=== PATIENT | male | born 1935 | race Caucasian/White ===

== ENCOUNTER 2020-05-27 21:01 | Inpatient (IN) | payer MEDICARE, BC ==
--- NOTE | 2020-05-27 21:33 | ED ---
General Adult HPI - General Chief complaint: Fever Stated complaint: Fever, Poss UTI Time Seen by Provider: 05/27/20 21:20 Source: patient, family Mode of arrival: wheelchair Limitations: altered mental status - History of Present Illness Initial comments: Dictation was produced using [employer] dictation software. please excuse any grammatical, word or spelling errors. This patient was cared for during a federal and state declared state of emergen cy secondary to Covid 19 Chief Complaint: 84-year-old male with past medical history dementia, dyslipidemia hypertension presents with fever. History of Present Illness: 84-year-old male who has multiple comorbidities. He presents today with his son. Son is able to provide history of present illness. [facility]. Son went to go visit him and noticed that he seemed a little red in the face. He has a history of urinary tract infections. He asked [facility] staff to check his blood pressures found to be within acceptable limits. Didn't check his temperature it was 101. Patient has no complaints, however he is a poor historian. Son at bedside does not notice any localizing symptoms. He hasn't been known to cough more than usual. Patient denies any sore throat. Son reports that patient has history of chronic rhinorrhea from ALLERGIES. The ROS documented in this emergency department record has been reviewed and confirmed by me. Those systems with pertinent positive or negative responses have been documented in the HPI. All other systems are other negative and/or noncontributory. PHYSICAL EXAM: General Impression: Alert and oriented x3, not in acute distress HEENT: Normocephalic atraumatic, extra-ocular movements intact, pupils equal and reactive to light bilaterally, mucous membranes moist. Cardiovascular: Heart regular rate and rhythm Chest: Able to complete full sentences, no retractions, no tachypnea, scattered auscultation bilaterally Abdomen: abdomen soft, non-tender, non-distended, no organomegaly Musculoskeletal: Pulses present and equal in all extremities, no peripheral edema, no joint tenderness Motor: no focal deficits noted Neurological: CN II-XII grossly intact, no focal motor or sensory deficits noted, negative Brudzinski's, negative Kernig's negative Lhermitte's Skin: Intact with no visualized rashes, no perineal rash Psych: Normal affect and mood ED course: 84-year-old male presents with fever. He does not have any obvious localizing symptoms. Signs upon arrival shows temperature 100.6. Rest of vital signs within acceptable limits. Patient did receive some antipyretics prior to arrival. Laboratory evaluation obtained. No leukocytosis. Coag panel is unremarkable. Metabolic panel shows no anion gap acidosis. Normal lactic acidosis. Chest x- ray shows subsegmental atelectasis at the bilateral lung bases. Urinalysis is unremarkable. Patient reevaluated bedside finally stable medical condition. He is however very weak. This point it is unclear what is causing patient's pyrexia. Son at bedside reports that he did appear very weak and symptomatic right to receiving, today. Disposition options were discussed with patient and patient's son. They're agreeable for overnight observation for systemic inflammatory response syndrome. Pending coronavirus testing. Discussed patient case with Dr. Iglesias who is willing to accept patients care EKG interpretation: Ventricular rate 60, sinus rhythm,. Interval 154, Q 76, QTC 410. No MN prolongation, no QTC prolongation, no ST or T-wave changes noted. EKG compared to 05/01/2015 showing no changes. Overall, this EKG is unremarkable - Related Data Home Medications Medication Instructions Recorded Confirmed Gabapentin [Neurontin] 400 mg PO HS 03/24/14 05/27/20 Tamsulosin HCl [Flomax] 0.4 mg PO DAILY 03/24/14 05/27/20 amLODIPine [Norvasc] 5 mg PO DAILY 03/24/14 05/27/20 Atorvastatin [Lipitor] 40 mg PO DAILY 05/01/15 05/27/20 Cholecalciferol [Vitamin D3 (25 1,000 unit PO DAILY 02/24/16 05/27/20 Mcg = 1000 Iu)] EPINEPHrine [Epipen 2-Julien] 0.3 mg IM ONCE PRN 02/24/16 05/27/20 Aspirin [Adult Low Dose Aspirin EC] 81 mg PO HS 05/27/20 05/27/20 Calcium Polycarbophil [Fiber-Lax] 625 mg PO DAILY 05/27/20 05/27/20 Donepezil [Aricept] 10 mg PO HS 05/27/20 05/27/20 Finasteride [Proscar] 5 mg PO DAILY 05/27/20 05/27/20 Loratadine 10 mg PO DAILY 05/27/20 05/27/20 Memantine [Namenda] 10 mg PO BID 05/27/20 05/27/20 Sertraline HCl [Zoloft] 100 mg PO DAILY 05/27/20 05/27/20 lisinopriL [Zestril] 2.5 mg PO DAILY 05/27/20 05/27/20 Allergies Allergy/AdvReac Type Severity Reaction Status Date / Time Sulfa (Sulfonamide Allergy Rash/Hives Verified 05/27/20 22:53 Antibiotics) venom-honey bee Allergy "PASSED Verified 05/27/20 22:53 [bee venom (honey bee)] OUT" diphenhydramine HCl AdvReac Hallucinati Verified 05/27/20 22:53 [From Benadryl] ons Review of Systems ROS Statement: Those systems with pertinent positive or pertinent negative responses have been documented in the HPI. ROS Other: All systems not noted in ROS Statement are negative. Past Medical History Past Medical History: Dementia, GERD/Reflux, Hearing Disorder / Deafness, Hyperlipidemia, Hypertension, Prostate Disorder Additional Past Medical History / Comment(s): severe constipation, hx colon polyps, neuropathy, degenerative disc disease of the lumbar spine, gastroesophageal reflux disease/hiatal hernia, hyperlipidemia, osteoarthritis, memory loss, vitamin D deficiency. History of Any Multi-Drug Resistant Organisms: None Reported Past Surgical History: Adenoidectomy, Hernia Repair, Tonsillectomy Additional Past Surgical History / Comment(s): undescended testicle surg years ago, bilateral cataract surgery, tonsillectomy and adenoidectomy, Lion fundoplication for hiatal hernia, epidural injection for degenerative disc disease of the lumbar spine, colonoscopy a year ago, cystoscopy . Past Anesthesia/Blood Transfusion Reactions: No Reported Reaction Past Psychological History: No Psychological Hx Reported Smoking Status: Former smoker Past Alcohol Use History: Occasional Past Drug Use History: None Reported - Past Family History Mother History Unknown: Yes Family Medical History: No Reported History Father Family Medical History: Coronary Artery Disease (CAD) Daughter(s) Family Medical History: No Reported History (Patient has 2 daughters no major medical problems.) Son(s) Family Medical History: No Reported History (Patient has 2 sons no major medical problems.) General Exam Limitations: altered mental status Course Vital Signs 05/27/20 05/27/20 05/27/20 21:09 21:22 21:30 Temperature 100.6 F H Pulse Rate 67 59 L 61 Respiratory 17 Rate Blood Pressure 111/62 117/57 O2 Sat by Pulse 94 L 95 Oximetry 05/27/20 05/27/20 22:00 22:30 Temperature Pulse Rate 60 64 Respiratory 18 20 Rate Blood Pressure 119/60 121/62 O2 Sat by Pulse 96 96 Oximetry Medical Decision Making - Lab Data Result diagrams: 05/27/20 21:35 05/27/20 21:35 Lab Results 05/27/20 05/27/20 05/27/20 Range/Units 21:35 21:35 21:35 WBC 9.2 (3.8-10.6) k/uL RBC 4.81 (4.30-5.90) m/uL Hgb 15.0 (13.0-17.5) gm/dL Hct 44.2 (39.0-53.0) % MCV 91.8 (80.0-100.0) fL MCH 31.1 (25.0-35.0) pg MCHC 33.9 (31.0-37.0) g/dL RDW 12.7 (11.5-15.5) % Plt Count 229 (150-450) k/uL Neutrophils % 84 % Lymphocytes % 9 % Monocytes % 5 % Eosinophils % 0 % Basophils % 0 % Neutrophils # 7.7 (1.3-7.7) k/uL Lymphocytes # 0.8 L (1.0-4.8) k/uL Monocytes # 0.5 (0-1.0) k/uL Eosinophils # 0.0 (0-0.7) k/uL Basophils # 0.0 (0-0.2) k/uL PT 10.1 (9.0-12.0) sec INR 1.0 (<1.2) APTT 25.1 (22.0-30.0) sec Sodium (137-145) mmol/L Potassium (3.5-5.1) mmol/L Chloride (98-107) mmol/L Carbon Dioxide (22-30) mmol/L Anion Gap mmol/L BUN (9-20) mg/dL Creatinine (0.66-1.25) mg/dL Est GFR (CKD-EPI)AfAm (>60 ml/min/1.73 sqM) Est GFR (CKD-EPI)NonAf (>60 ml/min/1.73 sqM) Glucose (74-99) mg/dL Plasma Lactic Acid Henrik (0.7-2.0) mmol/L Calcium (8.4-10.2) mg/dL Total Bilirubin (0.2-1.3) mg/dL AST (17-59) U/L ALT (4-49) U/L Alkaline Phosphatase (38-126) U/L Total Protein (6.3-8.2) g/dL Albumin (3.5-5.0) g/dL Urine Color Yellow Urine Appearance Clear (Clear) Urine pH 6.5 (5.0-8.0) Ur Specific [place] 1.014 (1.001-1.035) Urine Protein Negative (Negative) Urine Glucose (UA) Negative (Negative) Urine Ketones Negative (Negative) Urine Blood Negative (Negative) Urine Nitrite Negative (Negative) Urine Bilirubin Negative (Negative) Urine Urobilinogen <2.0 (<2.0) mg/dL Ur Leukocyte Esterase Negative (Negative) 05/27/20 05/27/20 Range/Units 21:35 21:35 WBC (3.8-10.6) k/uL RBC (4.30-5.90) m/uL Hgb (13.0-17.5) gm/dL Hct (39.0-53.0) % MCV (80.0-100.0) fL MCH (25.0-35.0) pg MCHC (31.0-37.0) g/dL RDW (11.5-15.5) % Plt Count (150-450) k/uL Neutrophils % % Lymphocytes % % Monocytes % % Eosinophils % % Basophils % % Neutrophils # (1.3-7.7) k/uL Lymphocytes # (1.0-4.8) k/uL Monocytes # (0-1.0) k/uL Eosinophils # (0-0.7) k/uL Basophils # (0-0.2) k/uL PT (9.0-12.0) sec INR (<1.2) APTT (22.0-30.0) sec Sodium 134 L (137-145) mmol/L Potassium 4.0 (3.5-5.1) mmol/L Chloride 106 (98-107) mmol/L Carbon Dioxide 21 L (22-30) mmol/L Anion Gap 7 mmol/L BUN 21 H (9-20) mg/dL Creatinine 1.12 (0.66-1.25) mg/dL Est GFR (CKD-EPI)AfAm 69 (>60 ml/min/1.73 sqM) Est GFR (CKD-EPI)NonAf 60 (>60 ml/min/1.73 sqM) Glucose 115 H (74-99) mg/dL Plasma Lactic Acid Henrik 1.2 (0.7-2.0) mmol/L Calcium 8.7 (8.4-10.2) mg/dL Total Bilirubin 0.7 (0.2-1.3) mg/dL AST 23 (17-59) U/L ALT 19 (4-49) U/L Alkaline Phosphatase 91 (38-126) U/L Total Protein 6.8 (6.3-8.2) g/dL Albumin 4.0 (3.5-5.0) g/dL Urine Color Urine Appearance (Clear) Urine pH (5.0-8.0) Ur Specific [place] (1.001-1.035) Urine Protein (Negative) Urine Glucose (UA) (Negative) Urine Ketones (Negative) Urine Blood (Negative) Urine Nitrite (Negative) Urine Bilirubin (Negative) Urine Urobilinogen (<2.0) mg/dL Ur Leukocyte Esterase (Negative) Disposition Clinical Impression: SIRS (systemic inflammatory response syndrome) Disposition: ADMITTED IP TO THIS [facility] Condition: Fair Referrals: None,Stated [Primary Care Provider] - 1-2 days Decision Time: 23:09
[2020-05-27 21:45] LABS: Basophils % (A) 0 %; Eosinophils % (A) 0 %; HCT 44.2 % (39.0-53.0); Lymphocytes # (A) 0.8 k/uL (1.0-4.8); Lymphocytes % (A) 9 %; MCH 31.1 pg (25.0-35.0); MCHC 33.9 g/dL (31.0-37.0); MCV 91.8 fL (80.0-100.0); Mean Platelet Volume 7.4; Monocytes # (A) 0.5 k/uL (0-1.0); Monocytes % (A) 5 %; Neutrophils # (A) 7.7 k/uL (1.3-7.7); Neutrophils % (A) 84 %; Platelet Count 229 k/uL (150-450); RBC 4.81 m/uL (4.30-5.90); RDW 12.7 % (11.5-15.5); WBC 9.2 k/uL (3.8-10.6)
[2020-05-27 21:55] LABS: Calcium 8.7 mg/dL (8.4-10.2); Total Bilirubin 0.7 mg/dL (0.2-1.3); Total Protein 6.8 g/dL (6.3-8.2)
[2020-05-27 21:56] LABS: Partial Thromboplastin Time 25.1 sec (22.0-30.0); Prothrombin Time 10.1 sec (9.0-12.0)
--- NOTE | 2020-05-27 21:58 | XR ---
EXAMINATION TYPE: XR chest 2V DATE OF EXAM: 05/27/2020 COMPARISON: 03/08/2016 INDICATION: Fever altered mental status TECHNIQUE: Frontal and lateral views of the chest are obtained. FINDINGS: The heart size is normal. The pulmonary vasculature is normal. Some subtle subsegmental atelectasis at the lung bases may be present.. IMPRESSION: 1. Subtle suggestion of subsegmental atelectasis at the bilateral lung bases.
[2020-05-27 22:53] LABS: Appearance,Urine Clear (Clear); Bilirubin,Urine Negative (Negative); Blood,Urine Negative (Negative); Color,Urine Yellow; Glucose,Urine (UA) Negative (Negative); Ketones,Urine Negative (Negative); Leukocyte Esterase,Urine Negative (Negative); Nitrite,Urine Negative (Negative); PH, Urine 6.5 (5.0-8.0); Protein,Urine Negative (Negative); Specific Gravity,Urine 1.014 (1.001-1.035); Urobilinogen,Urine <2.0 mg/dL (<2.0)
[2020-05-27] MEDS ORDERED: ACETAMINOPHEN TAB 325 MG TAB PO PRN (23:05)
[2020-05-27] MEDS ORDERED: ONDANSETRON 4 MG/2 ML VIAL IVP PRN (23:05)
[2020-05-27] MEDS ORDERED: NALOXONE 0.4 MG/ML 1 ML VIAL IV PRN (23:05)
--- NOTE | 2020-05-28 00:23 | P.HPIM ---
History of Present Illness H&P Date: 05/27/20 The patient is an 84-year-old male with a PMH of dementia, hypertension, hyperlipidemia, hearing loss, and BPH who presented to the ED for fever. The history was provided by his son at the bedside. He reported that when he went to visit his dad at his residential facility, he noticed that he appeared to be somewhat lethargic. When the staff checked his vitals, they noted that he had a fever of 101.3. The patient was subsequently sent into the emergency room. The patient was a very poor historian due to his dementia though was answering questions but denied any active complaints. He denied chest pain, shortness of breath, nausea, vomiting, diarrhea, dysuria, or headache. As per his son at the bedside, the patient has a history of chronic sinusitis and multiple UTIs in the past. In the emergency room, the patient's T-max was 100.6. Chest x-ray revealed subsegmental bibasilar atelectasis. EKG revealed sinus rhythm with PVCs at 60 bpm. UA was unremarkable with lactate 1.2, WBC count 9.2, hemoglobin 15, sodium 134, potassium 4.0, chloride 106, CO2 21, BUN 21, creatinine 1.12. Review of Systems Pertinent positives and negatives as discussed in HPI, a complete review of systems was performed and all other systems are negative. Past Medical History Past Medical History: Dementia, GERD/Reflux, Hearing Disorder / Deafness, Hyperlipidemia, Hypertension, Prostate Disorder Additional Past Medical History / Comment(s): severe constipation, hx colon polyps, neuropathy, degenerative disc disease of the lumbar spine, gastroesophageal reflux disease/hiatal hernia, hyperlipidemia, osteoarthritis, memory loss, vitamin D deficiency. History of Any Multi-Drug Resistant Organisms: None Reported Past Surgical History: Adenoidectomy, Hernia Repair, Tonsillectomy Additional Past Surgical History / Comment(s): undescended testicle surg years ago, bilateral cataract surgery, tonsillectomy and adenoidectomy, Lion f undoplication for hiatal hernia, epidural injection for degenerative disc disease of the lumbar spine, colonoscopy a year ago, cystoscopy . Past Anesthesia/Blood Transfusion Reactions: No Reported Reaction Past Psychological History: No Psychological Hx Reported Smoking Status: Former smoker Past Alcohol Use History: Occasional Past Drug Use History: None Reported - Past Family History Mother History Unknown: Yes Family Medical History: No Reported History Father Family Medical History: Coronary Artery Disease (CAD) Daughter(s) Family Medical History: No Reported History (Patient has 2 daughters no major medical problems.) Son(s) Family Medical History: No Reported History (Patient has 2 sons no major medical problems.) Medications and Allergies Home Medications Medication Instructions Recorded Confirmed Type Gabapentin [Neurontin] 400 mg PO HS 03/24/14 05/27/20 History Tamsulosin HCl [Flomax] 0.4 mg PO DAILY 03/24/14 05/27/20 History amLODIPine [Norvasc] 5 mg PO DAILY 03/24/14 05/27/20 History Atorvastatin [Lipitor] 40 mg PO DAILY 05/01/15 05/27/20 History Cholecalciferol [Vitamin D3 (25 1,000 unit PO DAILY 02/24/16 05/27/20 History Mcg = 1000 Iu)] EPINEPHrine [Epipen 2-Julien] 0.3 mg IM ONCE PRN 02/24/16 05/27/20 History Aspirin [Adult Low Dose Aspirin EC] 81 mg PO HS 05/27/20 05/27/20 History Calcium Polycarbophil [Fiber-Lax] 625 mg PO DAILY 05/27/20 05/27/20 History Donepezil [Aricept] 10 mg PO HS 05/27/20 05/27/20 History Finasteride [Proscar] 5 mg PO DAILY 05/27/20 05/27/20 History Loratadine 10 mg PO DAILY 05/27/20 05/27/20 History Memantine [Namenda] 10 mg PO BID 05/27/20 05/27/20 History Sertraline HCl [Zoloft] 100 mg PO DAILY 05/27/20 05/27/20 History lisinopriL [Zestril] 2.5 mg PO DAILY 05/27/20 05/27/20 History Allergies Allergy/AdvReac Type Severity Reaction Status Date / Time Sulfa (Sulfonamide Allergy Rash/Hives Verified 05/27/20 22:53 Antibiotics) venom-honey bee Allergy "PASSED Verified 05/27/20 22:53 [bee venom (honey bee)] OUT" diphenhydramine HCl AdvReac Hallucinati Verified 05/27/20 22:53 [From Benadryl] ons Physical Exam Vitals: Vital Signs Temp Pulse Resp BP Pulse Ox 05/27/20 23:00 64 20 161/89 98 05/27/20 22:30 64 20 121/62 96 05/27/20 22:00 60 18 119/60 96 05/27/20 21:30 61 117/57 95 05/27/20 21:22 59 L 05/27/20 21:09 100.6 F H 67 17 111/62 94 L Intake and Output 05/27/20 05/27/20 05/28/20 14:59 22:59 06:59 Other: Weight 79.379 kg General: non toxic, no distress, appears at stated age, overweight Derm: no unusual rashes/lesions no unusual ecchymoses, warm, dry Head: atraumatic, normocephalic, symmetric Eyes: EOMI, no lid lag, anicteric sclera, pupils equal round reactive to light ENT: Nose and ears atraumatic, no thrush, no pharyngeal erythema Neck: No thyromegaly, no cervical lymphadenopathy, trachea midline, supple Mouth: no lip lesion, mucus membranes moist Cardiovascular: S1S2 reg, systolic murmur appreciated, positive posterior tibial pulse bilateral, no edema, capillary refill less than 2 seconds Lungs: CTA bilateral, no rhonchi, no rales , no accessory muscle use Abdominal: soft, nontender to palpation, no guarding, no appreciable organomegaly, normal bowel sounds Ext: no gross muscle atrophy, muscle strength 5 out of 5 in all 4 extremities grossly, no contractures, Neuro: CN II-XI grossly intact, light touch intact all 4 extremities, finger to nose within normal limits, Psych: Awake, oriented to self, not oriented to place or time Results CBC & Chem 7: 05/27/20 21:35 05/27/20 21:35 Labs: Abnormal Lab Results - Last 24 Hours (Table) 05/27/20 05/27/20 Range/Units 21:35 21:35 Lymphocytes # 0.8 L (1.0-4.8) k/uL Sodium 134 L (137-145) mmol/L Carbon Dioxide 21 L (22-30) mmol/L BUN 21 H (9-20) mg/dL Glucose 115 H (74-99) mg/dL Assessment and Plan Plan: SIRS, no clear etiology noted -Follow-up Covid testing -F/u blood cultures Elevated BUN, possibly secondary to dehydration -Monitor BMP for now Chronic conditions: Dementia, hypertension, hyperlipidemia, BPH -Continue with home meds DVT prophylaxis -Heparin subq Discussed with: Son, Patient Anticipated discharge date: 1-[address]: SNF A total of 35 minutes was spent on the care of this complex patient more than 50% of the time was spent in counseling and care coordination.
[2020-05-28] MEDS: HEPARIN SODIUM,PORCINE 5,000 UNIT/ML 1 ML VIAL SQ SCH ×3 (08:01→23:17)
[2020-05-28] MEDS: SERTRALINE 100 MG TAB PO SCH (08:11)
[2020-05-28] MEDS: ATORVASTATIN 40 MG TAB PO SCH (08:11)
[2020-05-28] MEDS: FINASTERIDE 5 MG TAB PO SCH (08:11)
[2020-05-28] MEDS: MEMANTINE 10 MG TAB PO SCH ×2 (08:11→20:40)
[2020-05-28] MEDS: TAMSULOSIN 0.4 MG CAP.ER.24H PO SCH (08:12)
--- NOTE | 2020-05-28 09:48 | P.PN ---
Subjective Progress Note Date: 05/28/20 Patient is awake and alert. He is very hard of hearing. He does not have any complaints. Nurse informed me that he had another low-grade fever of 100.5 this morning. He is not having any cough or shortness of breath. Objective - Vital Signs Vital signs: Vital Signs Temp 98.3 F 05/28/20 00:25 Pulse 65 05/28/20 00:25 Resp 16 05/28/20 00:25 BP 160/72 05/28/20 00:25 Pulse Ox 98 05/28/20 00:25 Intake & Output 05/27/20 05/28/20 05/28/20 18:59 06:59 18:59 Intake Total 500 Balance 500 Weight 79.379 kg Intake: Oral 500 Other: Voiding Method Toilet # Voids 1 # Bowel Movements 1 - Exam General: The patient is awake and alert, in no distress Eye: there is normal conjunctiva bilaterally. Neck: The neck is supple, there is no JVD. Cardiovascular: Normal S1-S2, no S3-S4, no murmurs. Respiratory: Lungs clear to auscultation bilaterally Gastrointestinal: Abdomen is soft, nontender Musculoskeletal: There is no pedal edema. Neurological:. Speech is normal. Skin: Skin is warm and dry - Labs CBC & Chem 7: 05/27/20 21:35 05/27/20 21:35 Labs: Abnormal Lab Results - Last 24 Hours (Table) 05/27/20 05/27/20 Range/Units 21:35 21:35 Lymphocytes # 0.8 L (1.0-4.8) k/uL Sodium 134 L (137-145) mmol/L Carbon Dioxide 21 L (22-30) mmol/L BUN 21 H (9-20) mg/dL Glucose 115 H (74-99) mg/dL Assessment and Plan Assessment: This is a 84-year-old male with complex past medical history noted below who presented to the emergency room with a low-grade fever. Patient was evaluated at the ER and currently admitted to the hospital for further management of his medical problems noted below. 1. Low-grade fever, with no evidence of infection. Urinalysis and chest x-ray clear. No symptoms of URI. COVID-19 and blood culture ordered in the ER pending. We will continue to monitor closely off of antibiotic. Tylenol as needed. 2. Chronic constipation: I would add MiraLAX at bedtime to his regimen. 3. Chronic medical condition, advanced dementia, hypertension, hyperlipidemia, BPH: Stable continue home medications 4. DVT prophylaxis with subcu heparin We will continue to monitor awaiting culture results as patient is still having low-grade fever. If remains stable anticipate discharge tomorrow.
[2020-05-28] MEDS: SENNOSIDES 8.6 MG TAB PO SCH (14:23)
[2020-05-28] MEDS: DONEPEZIL 10 MG TAB PO SCH (20:40)
[2020-05-28] MEDS: GABAPENTIN 400 MG CAP PO SCH (20:41)
[2020-05-28] MEDS: ASPIRIN 81 MG PO SCH (20:41)
[2020-05-28] MEDS: polyethylene glycoL 3350 17 GM POWD.PACK PO SCH (20:41)
[2020-05-28] MEDS ORDERED: lisinopriL 5 MG TAB PO STA (21:20)
[2020-05-28] MEDS ORDERED: amLODIPine 5 MG TAB PO STA ×2 (21:31→21:38)
[2020-05-29] MEDS: HEPARIN SODIUM,PORCINE 5,000 UNIT/ML 1 ML VIAL SQ SCH ×3 (07:30→23:03)
[2020-05-29] MEDS ORDERED: SODIUM CHLORIDE 0.9% 1,000 ML IV SCH (08:00)
[2020-05-29] MEDS: SENNOSIDES 8.6 MG TAB PO SCH (08:17)
[2020-05-29] MEDS: FINASTERIDE 5 MG TAB PO SCH (08:18)
[2020-05-29] MEDS: MEMANTINE 10 MG TAB PO SCH ×2 (08:18→22:04)
[2020-05-29] MEDS: ATORVASTATIN 40 MG TAB PO SCH (08:18)
[2020-05-29] MEDS: SERTRALINE 100 MG TAB PO SCH (08:19)
[2020-05-29] MEDS: TAMSULOSIN 0.4 MG CAP.ER.24H PO SCH (08:19)
[2020-05-29 08:48] LABS: Calcium 8.4 mg/dL (8.4-10.2); Potassium 3.8 mmol/L (3.5-5.1)
[2020-05-29 08:52] LABS: Basophils % (A) 0 %; Eosinophils # (A) 0.1 k/uL (0-0.7); Eosinophils % (A) 2 %; HCT 45.1 % (39.0-53.0); HGB 14.8 gm/dL (13.0-17.5); Lymphocytes # (A) 1.2 k/uL (1.0-4.8); Lymphocytes % (A) 17 %; MCH 30.7 pg (25.0-35.0); MCHC 32.8 g/dL (31.0-37.0); MCV 93.5 fL (80.0-100.0); Mean Platelet Volume 7.7; Monocytes # (A) 0.5 k/uL (0-1.0); Monocytes % (A) 7 %; Neutrophils # (A) 5.3 k/uL (1.3-7.7); Neutrophils % (A) 71 %; Platelet Count 190 k/uL (150-450); RBC 4.83 m/uL (4.30-5.90); RDW 12.8 % (11.5-15.5); WBC 7.4 k/uL (3.8-10.6)
--- NOTE | 2020-05-29 11:49 | CT ---
EXAMINATION TYPE: CT abdomen pelvis w con DATE OF EXAM: 05/29/2020 COMPARISON: None INDICATION: Gram negative bacteremia, inta abdominal infection DLP: 1069 mGycm, Automated exposure control for dose reduction was used. CONTRAST: 100 ml mL of Isovue 300. Study performed without Oral Contrast TECHNIQUE: Axial images were obtained from above the diaphragm to the pubic rami in the axial plane a t 5 mm thick sections. Reconstructed images are reviewed on the computer in the coronal plane. FINDINGS: Limited CT sections are obtained the lung bases. Some mild atelectasis may be at the right lung base .. CT ABDOMEN: Surgical changes in the epigastric region likely is a hiatal hernia repair device Liver: Small cyst is within the superior right lobe liver. There is a cyst within the medial anterior right lobe liver. Spleen: Normal Pancreas: Normal Adrenal glands: The adrenal glands are normal. Gallbladder: Normal Kidneys: No masses are evident. No hydronephrosis is present. There is a 5.2 cm cyst at superior po le right kidney measuring 14 Hounsfield units. Delayed images were obtained through the kidneys, whi ch remain unremarkable. Aorta: Vascular calcification is within the aorta. Inferior vena cava: Normal. CT PELVIS: Possible diverticuli are within the colon especially through the sigmoid colon. No suspicious inflamm atory changes suggest acute diverticulitis is evident. Studies without oral contrast limiting bowel e valuation. Appendix: Not identified. No suspicious dilated tubular structure inflammatory changes evident. Urinary bladder: There is urinary bladder diverticulum extending from both left and right vitale urina ry bladder. A right posterior lateral diverticulum is also present. Urinary bladder is distended. Genitourinary structures: No significant prostate hypertrophy is evident. Osseous structures: No suspicious lytic or sclerotic lesions. Degenerative disc changes are through t he thoracolumbar spine. Bone island may be present within the left medial iliac wing. IMPRESSIONS: 1. Diverticulosis without acute diverticulitis. 2. Urinary bladder diverticulum. 3. Superior pole right renal cyst.
--- NOTE | 2020-05-29 13:41 | P.PN ---
Subjective Progress Note Date: 05/29/20 Patient is doing well today. No more documented fevers over the last night. No acute events overnight. He was noted to be bacteremic with gram-negative vasculitis morning. Objective - Vital Signs Vital signs: Vital Signs Temp 97.0 F L 05/29/20 08:49 Pulse 60 05/29/20 08:49 Resp 18 05/29/20 08:49 BP 121/59 05/29/20 08:49 Pulse Ox 94 L 05/29/20 02:21 Intake & Output 05/28/20 05/29/20 05/29/20 18:59 06:59 18:59 Intake Total 500 240 Balance 500 240 Intake: Oral 500 240 Other: Voiding Method Toilet # Voids 1 1 # Bowel Movements 1 - Exam General: The patient is awake and alert, in no distress Eye: there is normal conjunctiva bilaterally. Neck: The neck is supple, there is no JVD. Cardiovascular: Normal S1-S2, no S3-S4, no murmurs. Respiratory: Lungs clear to auscultation bilaterally Gastrointestinal: Abdomen is soft, nontender Musculoskeletal: There is no pedal edema. Neurological:. Speech is normal. Skin: Skin is warm and dry - Labs CBC & Chem 7: 05/29/20 08:09 05/29/20 08:09 Labs: Abnormal Lab Results - Last 24 Hours (Table) 05/29/20 Range/Units 08:09 Sodium 136 L (137-145) mmol/L Glucose 187 H (74-99) mg/dL Microbiology - Last 24 Hours (Table) 05/27/20 21:35 Blood Culture Gram Stain - Preliminary Blood Blood Culture - Preliminary Pseudomonas aeruginosa 05/27/20 21:35 Blood Culture - Final Blood Assessment and Plan Assessment: This is a 84-year-old male with complex past medical history noted below who presented to the emergency room with a low-grade fever. Patient was evaluated at the ER and currently admitted to the hospital for further management of his medical problems noted below. Patient was monitored off of antibiotic on admission but continued to have low-grade fever and the next day he was noted to be bacteremic with gram-negative bacillary where he was started on IV ceftr iaxone and then culture finalized to pseudomonas aeruginosa and antibiotics switched to IV cefepime. 1. Pseudomonas aeruginosa bacteremia. Source of infection unclear. Repeat blood culture ordered and pending. Urinalysis negative and chest x-ray with some atelectasis but no evidence of pneumonia. Computed tomography scan of the abdomen and pelvis with no source of infection. 2. Chronic constipation: I added MiraLAX at bedtime to his regimen. 3. Chronic medical condition, advanced dementia, hypertension, hyperlipidemia, BPH: Stable continue home medications 4. DVT prophylaxis with subcu heparin Infectious disease consulted for further evaluation. Admit to inpatient with expected length of stay more than tonight Discontinue IV fluid hydration
[2020-05-29] MEDS ORDERED: CEFEPIME 1 GM in SODIUM CHLORIDE 0.9% 50 ML IVPB ONE (14:00)
[2020-05-29] MEDS ORDERED: CEFEPIME 2 GM in SODIUM CHLORIDE 0.9% 50 ML IVPB SCH (21:00)
[2020-05-29] MEDS: ASPIRIN 81 MG PO SCH (22:04)
[2020-05-29] MEDS: GABAPENTIN 400 MG CAP PO SCH (22:04)
[2020-05-29] MEDS: DONEPEZIL 10 MG TAB PO SCH (22:04)
[2020-05-29] MEDS: polyethylene glycoL 3350 17 GM POWD.PACK PO SCH (22:05)
--- NOTE | 2020-05-29 23:02 | P.CONS ---
History of Present Illness - Reason for Consult Consult date: 05/29/20 Pseudomonas bacteremia Requesting physician: Jessica Asencio - Chief Complaint Fever x one day - History of Present Illness Patient is 84-year-old male who [facility], on the day of admission to the hospital the patient's son went to visit his father, patient wasn't she'll be slightly flushed in the face and he was noticed to have a temperature of 101F, patient subsequently was brought into the ER for further evaluation on arrival to the this facility, patient Temperature 100.6 degrees Fahrenheit patient did have a normal white count, patient did have a normal UA and chest x-ray did show some atelectasis patient did have blood culture drawn which were reported this morning with Pseudomonas aeruginosa, patient did have a CT of abdominal pelvis ordered with IV contrast only no oral contrast did show some diverticulosis but no diverticulitis and bladder diverticulum infectious disease was consulted for further management of antibiotic therapy, since admission Hospital the patient is afebrile patient is complaining of some vague lower abdominal pain however denies any worsening of the feeling better patient denies any nausea no vomiting no diarrhea or any constipation no burning or frequency of urine denies having any chest pain or shortness of cough and currently do not have any nuchal wound or lower extremity swelling or redness Review of Systems Positive point has been mentioned in the HPI rest of the systems are negative Past Medical History Past Medical History: Dementia, GERD/Reflux, Hearing Disorder / Deafness, Hyperlipidemia, Hypertension, Prostate Disorder Additional Past Medical History / Comment(s): severe constipation, hx colon polyps, neuropathy, degenerative disc disease of the lumbar spine, gastroeso phageal reflux disease/hiatal hernia, hyperlipidemia, osteoarthritis, memory loss, vitamin D deficiency. History of Any Multi-Drug Resistant Organisms: None Reported Past Surgical History: Adenoidectomy, Hernia Repair, Tonsillectomy Additional Past Surgical History / Comment(s): undescended testicle surg years ago, bilateral cataract surgery, tonsillectomy and adenoidectomy, Lion fundoplication for hiatal hernia, epidural injection for degenerative disc disease of the lumbar spine, colonoscopy a year ago, cystoscopy . Past Anesthesia/Blood Transfusion Reactions: No Reported Reaction Past Psychological History: No Psychological Hx Reported Smoking Status: Former smoker Past Alcohol Use History: Occasional Past Drug Use History: None Reported - Past Family History Mother History Unknown: Yes Family Medical History: No Reported History Father Family Medical History: Coronary Artery Disease (CAD) Daughter(s) Family Medical History: No Reported History (Patient has 2 daughters no major medical problems.) Son(s) Family Medical History: No Reported History (Patient has 2 sons no major medical problems.) Medications and Allergies Home Medications Medication Instructions Recorded Confirmed Type Gabapentin [Neurontin] 400 mg PO HS 03/24/14 05/27/20 History Tamsulosin HCl [Flomax] 0.4 mg PO DAILY 03/24/14 05/27/20 History amLODIPine [Norvasc] 5 mg PO DAILY 03/24/14 05/27/20 History Atorvastatin [Lipitor] 40 mg PO DAILY 05/01/15 05/27/20 History Cholecalciferol [Vitamin D3 (25 1,000 unit PO DAILY 02/24/16 05/27/20 History Mcg = 1000 Iu)] EPINEPHrine [Epipen 2-Julien] 0.3 mg IM ONCE PRN 02/24/16 05/27/20 History Aspirin [Adult Low Dose Aspirin EC] 81 mg PO HS 05/27/20 05/27/20 History Calcium Polycarbophil [Fiber-Lax] 625 mg PO DAILY 05/27/20 05/27/20 History Donepezil [Aricept] 10 mg PO HS 05/27/20 05/27/20 History Finasteride [Proscar] 5 mg PO DAILY 05/27/20 05/27/20 History Loratadine 10 mg PO DAILY 05/27/20 05/27/20 History Memantine [Namenda] 10 mg PO BID 05/27/20 05/27/20 History Sertraline HCl [Zoloft] 100 mg PO DAILY 05/27/20 05/27/20 History lisinopriL [Zestril] 2.5 mg PO DAILY 05/27/20 05/27/20 History Allergies Allergy/AdvReac Type Severity Reaction Status Date / Time Sulfa (Sulfonamide Allergy Rash/Hives Verified 05/27/20 22:53 Antibiotics) venom-honey bee Allergy "PASSED Verified 05/27/20 22:53 [bee venom (honey bee)] OUT" diphenhydramine HCl AdvReac Hallucinati Verified 08/28/20 22:53 [From Benadryl] ons Physical Exam Vitals: Vital Signs Temp Pulse Resp BP Pulse Ox 05/29/20 08:49 97.0 F L 60 18 121/59 05/29/20 02:21 98.3 F 71 17 129/67 94 L 05/29/20 02:10 71 17 05/28/20 23:15 99.1 F 62 16 107/57 92 L 05/28/20 19:35 99.0 F 67 15 170/64 94 L 05/28/20 19:15 18 Intake and Output 05/29/20 05/29/20 05/29/20 06:59 14:59 22:59 Other: Voiding Method Toilet # Voids 1 1 # Bowel Movements 1 GENERAL DESCRIPTION: Elderly male up in the chair, no distress. No tachypnea or accessory muscle of respiration use. HEENT: Shows Pallor , no scleral icterus. Oral mucous membrane is dry. No pharyngeal erythema or thrush NECK: Trachea central, no thyromegaly. LUNGS: Unlabored breathing. Decreased breath sounds at the base. No wheeze or crackle. HEART: S1, S2, regular rate and rhythm. No loud murmur ABDOMEN: Soft, no tenderness , guarding or rigidity, no organomegaly EXTREMITIES: No edema of feet. SKIN: No rash, no masses palpable. NEUROLOGICAL: The patient is awake, alert, oriented x3, mood and affect normal. Results CBC & Chem 7: 05/29/20 08:09 05/29/20 08:09 Labs: Abnormal Lab Results - Last 24 Hours (Table) 05/29/20 Range/Units 08:09 Sodium 136 L (137-145) mmol/L Glucose 187 H (74-99) mg/dL Microbiology - Last 24 Hours (Table) 05/27/20 21:35 Blood Culture Gram Stain - Preliminary Blood Blood Culture - Preliminary Pseudomonas aeruginosa 05/27/20 21:35 Blood Culture - Final Blood Assessment and Plan Assessment: 1- patient with Pseudomonas bacteremia in this patient presented to the hospital with fever and weakness but no definite localizing symptoms as for his infection is concerned in this patient workup so far including a UA that was negative chest x-rays have atelectasis and CT abdominal pelvis did not show any definite focus however the patient has been complaining of some abdominal pain and discomfort but no tenderness was noticed with concern for possible abdominal source 2-sulfa ALLERGY (1) Bacteremia due to Pseudomonas Current Visit: Yes Status: Acute Code(s): R78.81 - BACTEREMIA; B96.5 - PSEUDOMONAS (MALLEI) CAUSING DISEASES [facility] SNOM[facility] Code(s): 5010 [id number] Plan: 1-blood culture repeated to document clearance of bacteremia 2- just doesn't cefepime. 2 g every 12hr, while waiting for sensitivity to finalize Daughter at the bedside questions concerned were answered We will follow on clinical condition and cultures to further adjust medication if needed Thank you for this consultation will follow this patient with you Time with Patient: Greater than 30
[2020-05-30] MEDS ORDERED: CEFEPIME 1 GM in SODIUM CHLORIDE 0.9% 50 ML IVPB SCH (02:00)
[2020-05-30] MEDS: CEFEPIME 2 GM in SODIUM CHLORIDE 0.9% 100 ML IVPB SCH ×2 (04:05→15:25)
[2020-05-30 06:45] LABS: HCT 42.8 % (39.0-53.0); MCH 30.4 pg (25.0-35.0); MCHC 32.8 g/dL (31.0-37.0); MCV 92.7 fL (80.0-100.0); Mean Platelet Volume 7.4; Platelet Count 220 k/uL (150-450); RBC 4.61 m/uL (4.30-5.90); RDW 12.6 % (11.5-15.5)
[2020-05-30 06:50] LABS: Calcium 8.3 mg/dL (8.4-10.2); Potassium 4.2 mmol/L (3.5-5.1)
[2020-05-30 07:17] LABS: Eosinophils # (M) 0.35 k/uL (0-0.7); Lymphocytes # (M) 1.96 k/uL (1.0-4.8); Monocytes # (M) 1.12 k/uL (0-1.0); Neutrophils # (M) 3.57 k/uL (1.3-7.7); Neutrophils % (M) 51 %; Nucleated Red Blood Cells 0 /100 WBC (0-0); Total Cells Counted 100
[2020-05-30] MEDS: SENNOSIDES 8.6 MG TAB PO SCH (07:32)
[2020-05-30] MEDS: HEPARIN SODIUM,PORCINE 5,000 UNIT/ML 1 ML VIAL SQ SCH ×3 (07:32→20:22)
[2020-05-30] MEDS: TAMSULOSIN 0.4 MG CAP.ER.24H PO SCH (07:32)
[2020-05-30] MEDS: FINASTERIDE 5 MG TAB PO SCH (07:32)
[2020-05-30] MEDS: SERTRALINE 100 MG TAB PO SCH (07:32)
[2020-05-30] MEDS: MEMANTINE 10 MG TAB PO SCH ×2 (07:32→20:22)
[2020-05-30] MEDS: ATORVASTATIN 40 MG TAB PO SCH (07:32)
--- NOTE | 2020-05-30 10:26 | P.PN ---
Subjective Progress Note Date: 05/30/20 Patient is comfortable today. No acute events overnight reported by nursing staff. No more fevers. Repeat blood cultures still pending. Objective - Vital Signs Vital signs: Vital Signs Temp 98 F 05/30/20 07:39 Pulse 79 05/30/20 07:39 Resp 16 05/30/20 07:39 BP 173/90 05/30/20 07:39 Pulse Ox 97 05/30/20 07:39 Intake & Output 05/29/20 05/30/20 05/30/20 18:59 06:59 18:59 Intake Total 2500 Balance 2500 Intake: Intake, IV Titration 500 Amount Cefepime 2 gm In Sodium 100 Chloride 0.9% 100 ml @ 25 mls/hr IVPB Q12H [facility] Rx# :[id number] Sodium Chloride 0.9% 1, 400 000 ml @ 50 mls/hr IV . Q20H [facility] Rx#:[id number] Oral 2000 Other: Voiding Method Toilet Toilet # Voids 1 2 # Bowel Movements 1 - Exam General: The patient is awake and alert, in no distress Eye: there is normal conjunctiva bilaterally. Neck: The neck is supple, there is no JVD. Cardiovascular: Normal S1-S2, no S3-S4, no murmurs. Respiratory: Lungs clear to auscultation bilaterally Gastrointestinal: Abdomen is soft, nontender Musculoskeletal: There is no pedal edema. Neurological:. Speech is normal. Skin: Skin is warm and dry - Labs CBC & Chem 7: 05/30/20 06:01 05/30/20 06:01 Labs: Abnormal Lab Results - Last 24 Hours (Table) 05/30/20 05/30/20 Range/Units 06:01 06:01 Monocytes # (Manual) 1.12 H (0-1.0) k/uL Calcium 8.3 L (8.4-10.2) mg/dL Microbiology - Last 24 Hours (Table) 05/27/20 21:35 Blood Culture Gram Stain - Preliminary Blood Blood Culture - Preliminary Pseudomonas aeruginosa Assessment and Plan Assessment: This is a 84-year-old male with complex past medical history noted below who presented to the emergency room with a low-grade fever. Patient was evaluated at the ER and currently admitted to the hospital for further management of his medical problems noted below. Patient was monitored off of antibiotic on admission but continued to have low-grade fever and the next day he was noted to be bacteremic with gram-negative bacilli where he was started on IV ceftriaxone and then culture finalized to pseudomonas aeruginosa and antibiotics switched to IV cefepime. 1. Pseudomonas aeruginosa bacteremia. Source of infection unclear. Repeat blood culture ordered and pending. Urinalysis negative and chest x-ray with some atelectasis but no evidence of pneumonia. Computed tomography scan of the abdomen and pelvis with no source of infection. Infectious disease consulted for further evaluation, appreciate recommendations. 2. Chronic constipation: I added MiraLAX at bedtime to his regimen. 3. Chronic medical condition, advanced dementia, hypertension, hyperlipidemia, BPH: Stable continue home medications 4. DVT prophylaxis with subcu heparin Awaiting repeat blood culture May need a PICC line after repeat blood culture is negative
[2020-05-30] MEDS: GABAPENTIN 400 MG CAP PO SCH (20:22)
[2020-05-30] MEDS: DONEPEZIL 10 MG TAB PO SCH (20:22)
[2020-05-30] MEDS: ASPIRIN 81 MG PO SCH (20:22)
[2020-05-30] MEDS: polyethylene glycoL 3350 17 GM POWD.PACK PO SCH (20:23)
--- NOTE | 2020-05-30 21:57 | PN ---
PROGRESS NOTE DATE OF SERVICE: 05/30/2020 REASON FOR FOLLOWUP: Pseudomonas bacteremia. INTERVAL HISTORY: The patient is currently afebrile. The patient is breathing comfortably. The patient denies having any chest pain or shortness of breath or cough. No nausea or vomiting. No abdominal pain or diarrhea. PHYSICAL EXAMINATION: Blood pressure 126/65 with a pulse of 58, temperature 98.1. He is 96% on room air. General description is an elderly male lying in bed in no distress. RESPIRATORY SYSTEM: Unlabored breathing. Clear to auscultation anteriorly. HEART: S1, S2. Regular rate and rhythm. ABDOMEN: Soft. No tenderness. LABS: Hemoglobin is 14, white count 7.0. BUN of 15, creatinine 0.97. Blood culture repeat is so far negative. Sensitivity of the Pseudomonas is pending. DIAGNOSTIC IMPRESSION AND PLAN: Patient with Pseudomonas bacteremia. Source is possibly abdominal in this patient currently with a negative UA. Chest x-ray not suspicious for pneumonia and CT did not show any evidence of consolidation in the lung bases. The patient is currently breathing comfortably on room air. The patient is covered on cefepime; to continue while waiting for the sensitivity to finalize to determine his discharge antibiotics. Continue with supportive care. MMODL / IJN: [id number] /
[2020-05-31] MEDS: CEFEPIME 2 GM in SODIUM CHLORIDE 0.9% 100 ML IVPB SCH ×2 (03:05→17:29)
[2020-05-31 06:11] LABS: Calcium 8.4 mg/dL (8.4-10.2); Potassium 4.2 mmol/L (3.5-5.1)
[2020-05-31 06:19] LABS: Basophils % (A) 0 %; Eosinophils # (A) 0.3 k/uL (0-0.7); Eosinophils % (A) 5 %; HCT 41.6 % (39.0-53.0); HGB 13.9 gm/dL (13.0-17.5); Lymphocytes # (A) 1.6 k/uL (1.0-4.8); Lymphocytes % (A) 25 %; MCH 31.2 pg (25.0-35.0); MCHC 33.4 g/dL (31.0-37.0); MCV 93.5 fL (80.0-100.0); Mean Platelet Volume 7.3; Monocytes # (A) 0.4 k/uL (0-1.0); Monocytes % (A) 6 %; Neutrophils # (A) 3.7 k/uL (1.3-7.7); Neutrophils % (A) 58 %; Platelet Count 222 k/uL (150-450); RBC 4.45 m/uL (4.30-5.90); RDW 12.7 % (11.5-15.5); WBC 6.4 k/uL (3.8-10.6)
[2020-05-31] MEDS: ATORVASTATIN 40 MG TAB PO SCH (07:23)
[2020-05-31] MEDS: HEPARIN SODIUM,PORCINE 5,000 UNIT/ML 1 ML VIAL SQ SCH ×2 (07:23→15:16)
[2020-05-31] MEDS: FINASTERIDE 5 MG TAB PO SCH (07:24)
[2020-05-31] MEDS: TAMSULOSIN 0.4 MG CAP.ER.24H PO SCH (07:24)
[2020-05-31] MEDS: SERTRALINE 100 MG TAB PO SCH (07:24)
[2020-05-31] MEDS: MEMANTINE 10 MG TAB PO SCH (07:24)
[2020-05-31] MEDS: SENNOSIDES 8.6 MG TAB PO SCH (07:24)
[2020-05-31 14:32] VITALS: BP 137/65; PULSE 59; RESP 16; TEMP 98.2
--- NOTE | 2020-05-31 15:29 | PN ---
PROGRESS NOTE DATE OF SERVICE: 05/31/2020 REASON FOR FOLLOWUP: Pseudomonas bacteremia; possible abdominal source. INTERVAL HISTORY: The patient is currently afebrile. The patient is feeling better, breathing comfortably. Denies having any chest pain or cough. No nausea. No vomiting. No abdominal pain or diarrhea. PHYSICAL EXAMINATION: Blood pressure 137/65, pulse of 59, temperature 98.2. He is 94% on room air. General description is an elderly male up in the chair in no distress. RESPIRATORY SYSTEM: Unlabored breathing with decreased breath sounds at the base. No wheeze. HEART: S1, S2. Regular rate and rhythm. ABDOMEN: Soft. No tenderness. LABS: White count normal. Blood culture repeat 05/29 has been negative so far. DIAGNOSTIC IMPRESSION AND PLAN: Patient with Pseudomonas aeruginosa bacteremia, unfortunately Cipro-resistant. We do not have any oral option. Will get a midline for cefepime 2 grams q.12 for another 12 days along with oral Flagyl and close outpatient followup. Daughter at the bedside. Questions were answered. Plan of care was discussed with the admitting physician working on discharge. MMODL / IJN: [id number] /
--- NOTE | 2020-05-31 16:00 | P.DS ---
Providers Date of admission: 05/29/20 08:42 Expected date of discharge: 05/31/20 Attending physician: Rob Iglesias MD Consults: 05/29/20 13:34 Consult Physician Routine Consulting Provider: Giovana Gunter Consult Reason/Comments: Pseudomonas bacteremia Do you want consulting provider notified?: Yes Primary care physician: [place] Hospital Course: This is a 84-year-old male with complex past medical history noted below who presented to the emergency room with a low-grade fever. Patient was evaluated at the ER and currently admitted to the hospital for further management of his medical problems noted below. Patient was monitored off of antibiotic on admission but continued to have low-grade fever and the next day he was noted to be bacteremic with gram-negative bacilli where he was started on IV ceftriaxone and then culture finalized to pseudomonas aeruginosa and antibiotics switched to IV cefepime. 1. Pseudomonas aeruginosa bacteremia. Source of infection unclear. Possibly intra-abdominal. Repeat blood culture negative to date. Urinalysis negative and chest x-ray with some atelectasis but no evidence of pneumonia. Computed tomography scan of the abdomen and pelvis with no source of infection. Infectious disease consulted for further evaluation, appreciate recommendations. Plan to discharge home on IV cefepime for a total of 14 days and oral Flagyl as directed by ID 2. Chronic constipation: Continue bowel regimen. 3. Chronic medical condition, advanced dementia, hypertension, hyperlipidemia, BPH: Stable continue home medications Patient will be discharged with home care/home infusion. For further details about this hospitalization please refer to the electronic chart. Patient Condition at Discharge: Stable Plan - Discharge Summary Discharge Rx Participant: Yes New Discharge Prescriptions: New metroNIDAZOLE [Flagyl] 500 mg PO Q8HR #42 tab Cefepime [Maxipime] 2 gm IVPB Q12H #22 bag Continue Tamsulosin HCl [Flomax] 0.4 mg PO DAILY amLODIPine [Norvasc] 5 mg PO DAILY Gabapentin [Neurontin] 400 mg PO HS Atorvastatin [Lipitor] 40 mg PO DAILY Cholecalciferol [Vitamin D3 (25 Mcg = 1000 Iu)] 1,000 unit PO DAILY EPINEPHrine [Epipen 2-Julien] 0.3 mg IM ONCE PRN PRN Reason: BEE STING REACTION lisinopriL [Zestril] 2.5 mg PO DAILY Sertraline HCl [Zoloft] 100 mg PO DAILY Finasteride [Proscar] 5 mg PO DAILY Calcium Polycarbophil [Fiber-Lax] 625 mg PO DAILY Memantine [Namenda] 10 mg PO BID Loratadine 10 mg PO DAILY Aspirin [Adult Low Dose Aspirin EC] 81 mg PO HS Donepezil [Aricept] 10 mg PO HS Discharge Medication List Gabapentin [Neurontin] 400 mg PO HS 03/24/14 [History] Tamsulosin HCl [Flomax] 0.4 mg PO DAILY 03/24/14 [History] amLODIPine [Norvasc] 5 mg PO DAILY 03/24/14 [History] Atorvastatin [Lipitor] 40 mg PO DAILY 05/01/15 [History] Cholecalciferol [Vitamin D3 (25 Mcg = 1000 Iu)] 1,000 unit PO DAILY 02/24/16 [History] EPINEPHrine [Epipen 2-Julien] 0.3 mg IM ONCE PRN 02/24/16 [History] Aspirin [Adult Low Dose Aspirin EC] 81 mg PO HS 05/27/20 [History] Calcium Polycarbophil [Fiber-Lax] 625 mg PO DAILY 05/27/20 [History] Donepezil [Aricept] 10 mg PO HS 05/27/20 [History] Finasteride [Proscar] 5 mg PO DAILY 05/27/20 [History] Loratadine 10 mg PO DAILY 05/27/20 [History] Memantine [Namenda] 10 mg PO BID 05/27/20 [History] Sertraline HCl [Zoloft] 100 mg PO DAILY 05/27/20 [History] lisinopriL [Zestril] 2.5 mg PO DAILY 05/27/20 [History] Cefepime [Maxipime] 2 gm IVPB Q12H #22 bag 05/31/20 [Rx] metroNIDAZOLE [Flagyl] 500 mg PO Q8HR #42 tab 05/31/20 [Rx] Follow up Appointment(s)/Referral(s): [facility], [NON-STAFF] - 1-2 Days [facility], [REFERRING] - Giovana Gunter MD [STAFF PHYSICIAN] - 2 Weeks Discharge Disposition: HOME WITH HOME HEALTH SERVICES
[2020-06-01] MEDS ORDERED: CEFEPIME 2 GM in SODIUM CHLORIDE 0.9% 100 ML IVPB SCH (08:00)
--- NOTE | 2020-06-01 11:30 | CDI ---
Documentation Clarification Form Date: 06/01/20 From: Avelina Hyde Phone: If you have a question about this query, please contact Annalisa Lux, Facility Service Associate at [phone] between 8am and 5pm. Admit Date: 05/29/20 Discharge Date: 05/31/20 Patient Name: EBENEZER KLEIN Visit Number: [id number] ATTENTION: The Clinical Documentation Specialists (CDI) and [facility] Coding Staff appreciate your assistance in clarifying documentation. Please respond to the clarification below the line at the bottom and electronically sign. The CDI & [facility] Coding staff will review the response and follow-up if needed. Please note: Queries are made part of the Legal Health Record. If you have any questions, please contact the author of this message via ITS. Dear Dr. Jessica Asencio, Bacteremia documented in the progress notes, consult and discharge summary. Patient history/risk factors: dehydration, diverticulosis of sigmoid colon, COVID negative, HTN, hx of UTI's Clinical Indicators: Patient presents w temperature of 101.3. No clear SIRS etiology. WBC: 9.2 Left Shift: 84 Blood Culture: Pseeudomonas aerugionosa Consult: Bacteremia due to Pseudomonas, Treatment: IV Rocephin, IV Cefepime, IV fluids Bacteremia is considered a lab finding. Please clarify if that lab finding is clinical indicator of a more definitive medical diagnosis such as: Sepsis Infectious Process, please specify: Other, please specify Unable to determine Bacteremia unable to determine source MTDD
== END 2020-05-31 19:04 | disposition home health service (06) | DRG 872 ==
LOC: EC 21:01 → 1SOBS 23:05 → UNDODISOB 05-28 17:56 → OBSVTOIN 05-29 08:42
PROVIDERS: ADMIT Internal Medicine; ATTEND Internal Medicine
PROC: 05HB33Z Insertion of Infusion Device into Right Basilic Vein, Percutaneous Approach (ICD-10-PCS; principal; 2020-05-31 12:40)
DX: R78.81 Bacteremia (principal); R65.10 Systemic inflammatory response syndrome (SIRS) of non-infectious origin without acute organ dysfunction; J98.11 Atelectasis; F03.90 Unspecified dementia, unspecified severity, without behavioral disturbance, psychotic disturbance, mood disturbance, and anxiety; B96.5 Pseudomonas (aeruginosa) (mallei) (pseudomallei) as the cause of diseases classified elsewhere; E86.0 Dehydration; Z20.828 Contact with and (suspected) exposure to other viral communicable diseases; I10 Essential (primary) hypertension; K57.30 Diverticulosis of large intestine without perforation or abscess without bleeding; E55.9 Vitamin D deficiency, unspecified; E78.5 Hyperlipidemia, unspecified; G62.9 Polyneuropathy, unspecified; H91.90 Unspecified hearing loss, unspecified ear; N40.0 Benign prostatic hyperplasia without lower urinary tract symptoms; J32.9 Chronic sinusitis, unspecified; M51.36 Other intervertebral disc degeneration, lumbar region; I49.3 Ventricular premature depolarization; K59.09 Other constipation; K21.9 Gastro-esophageal reflux disease without esophagitis; M19.90 Unspecified osteoarthritis, unspecified site; E66.3 Overweight; Z68.29 Body mass index [BMI] 29.0-29.9, adult; Z79.82 Long term (current) use of aspirin; Z79.899 Other long term (current) drug therapy; Z87.440 Personal history of urinary (tract) infections; Z86.010 Personal history of colon polyps; Z90.89 Acquired absence of other organs; Z87.19 Personal history of other diseases of the digestive system; Z98.42 Cataract extraction status, left eye; Z98.41 Cataract extraction status, right eye; Z87.891 Personal history of nicotine dependence; Z87.438 Personal history of other diseases of male genital organs; Z98.890 Other specified postprocedural states; Z88.2 Allergy status to sulfonamides; Z88.8 Allergy status to other drugs, medicaments and biological substances; Z91.030 Bee allergy status; Z82.49 Family history of ischemic heart disease and other diseases of the circulatory system
CPT/HCPCS: 36410; 36415; 71046; 74177; 76937; 80048; 80053; 81003; 83605; 85025; 85610; 85730; 87040; 87077; 87186; 93005; 99285

== ENCOUNTER 2020-10-15 11:14 | Inpatient (IN) | payer MEDICARE, BC ==
--- NOTE | 2020-10-15 11:30 | ED ---
General Adult HPI - General Stated complaint: Fever Time Seen by Provider: 10/15/20 11:15 Source: patient, EMS, RN notes reviewed, old records reviewed Mode of arrival: EMS Limitations: no limitations - History of Present Illness Initial comments: Patient is a pleasant 84-year-old male presenting to the emergency department from [facility] home with concern for fever. Patient is a very poor historian. History is very limited. Patient reportedly has history of infection. Chart re view reveals history of bacteremia with Pseudomonas of undetermined origin. Patient was admitted for this back in May. Patient reportedly has been more drowsy than normal. Patient states he feels fine at this time and has no complaints. Patient is unclear why he is here. - Related Data Home Medications Medication Instructions Recorded Confirmed Gabapentin [Neurontin] 400 mg PO HS@199903/24/14 10/15/20 Tamsulosin HCl [Flomax] 0.4 mg PO DAILY@79903/24/14 10/15/20 Atorvastatin [Lipitor] 40 mg PO HS@209905/01/15 10/15/20 Cholecalciferol [Vitamin D3 (25 1,000 unit PO DAILY@79902/24/16 10/15/20 Mcg = 1000 Iu)] EPINEPHrine [Epipen 2-Julien] 0.3 mg IM ONCE PRN 02/24/16 10/15/20 Aspirin [Adult Low Dose Aspirin EC] 81 mg PO HS@179905/27/20 10/15/20 Calcium Polycarbophil [Fiber-Lax] 625 mg PO DAILY@79905/27/20 10/15/20 Donepezil [Aricept] 10 mg PO HS@179905/27/20 10/15/20 Finasteride [Proscar] 5 mg PO DAILY@79905/27/20 10/15/20 Loratadine 10 mg PO DAILY PRN 05/27/20 10/15/20 Memantine [Namenda] 10 mg PO BID@799,199905/27/20 10/15/20 Sertraline HCl [Zoloft] 100 mg PO DAILY@79905/27/20 10/15/20 Acetaminophen [Tylenol] 1,000 mg PO ONCE PRN 10/15/20 10/15/20 Ascorbic Acid [Vitamin C] 500 mg PO BID@799,199910/15/20 10/15/20 Dextromethorphn/Acetaminoph/Cp 1 tab PO Q6H PRN 10/15/20 10/15/20 [Coricidin Hbp Flu Tablet] Docusate [Colace] 100 mg PO DAILY PRN 10/15/20 10/15/20 Ipratropium Man [Ipratropium 2 spray EA NOSTRIL 10/15/20 10/15/20 Man 0.03%] TID@0800,1399,1999 QUEtiapine FUMARATE [SEROquel] 25 mg PO HS PRN 10/15/20 10/15/20 Zinc 100 mg PO DAILY@0800 10/15/20 10/15/20 amLODIPine [Norvasc] 5 mg PO DAILY@0800 10/15/20 10/15/20 guaiFENesin [Mucinex] 1,200 mg PO BID@0800,199910/15/20 10/15/20 lisinopriL [Zestril] 2.5 mg PO DAILY@0800 10/15/20 10/15/20 predniSONE See Taper PO DAILY@0800 10/15/20 10/15/20 Allergies Allergy/AdvReac Type Severity Reaction Status Date / Time Sulfa (Sulfonamide Allergy Rash/Hives Verified 10/15/20 12:35 Antibiotics) venom-honey bee Allergy "PASSED Verified 10/15/20 12:35 [bee venom (honey bee)] OUT" diphenhydramine HCl AdvReac Hallucinati Verified 10/15/20 12:35 [From Benadryl] ons Review of Systems ROS Statement: Those systems with pertinent positive or pertinent negative responses have been documented in the HPI. ROS Other: All systems not noted in ROS Statement are negative. Constitutional: Reports: as per HPI, fever Eyes: Denies: eye pain ENT: Denies: ear pain Respiratory: Denies: cough Cardiovascular: Denies: chest pain Endocrine: Denies: fatigue Gastrointestinal: Denies: abdominal pain Genitourinary: Denies: dysuria Musculoskeletal: Denies: back pain Skin: Denies: rash Neurological: Denies: headache Past Medical History Past Medical History: Dementia, GERD/Reflux, Hearing Disorder / Deafness, Hyperlipidemia, Hypertension, Prostate Disorder Additional Past Medical History / Comment(s): severe constipation, hx colon polyps, neuropathy, degenerative disc disease of the lumbar spine, gastroesophageal reflux disease/hiatal hernia, hyperlipidemia, osteoarthritis, memory loss, vitamin D deficiency. History of Any Multi-Drug Resistant Organisms: None Reported Past Surgical History: Adenoidectomy, Hernia Repair, Tonsillectomy Additional Past Surgical History / Comment(s): undescended testicle surg years ago, bilateral cataract surgery, tonsillectomy and adenoidectomy, Lion fundoplication for hiatal hernia, epidural injection for degenerative disc disease of the lumbar spine, colonoscopy a year ago, cystoscopy . Past Anesthesia/Blood Transfusion Reactions: No Reported Reaction Past Psychological History: No Psychological Hx Reported Smoking Status: Former smoker Past Alcohol Use History: Occasional Past Drug Use History: None Reported - Past Family History Mother History Unknown: Yes Family Medical History: No Reported History Father Family Medical History: Coronary Artery Disease (CAD) Daughter(s) Family Medical History: No Reported History (Patient has 2 daughters no major medical problems.) Son(s) Family Medical History: No Reported History (Patient has 2 sons no major medical problems.) General Exam Limitations: no limitations General appearance: alert, in no apparent distress Head exam: Present: atraumatic Eye exam: Present: normal appearance, PERRL ENT exam: Present: normal oropharynx Neck exam: Present: normal inspection. Absent: tenderness, meningismus Respiratory exam: Present: normal lung sounds bilaterally Cardiovascular Exam: Present: regular rate, normal rhythm GI/Abdominal exam: Present: soft. Absent: tenderness Extremities exam: Present: normal inspection. Absent: pedal edema, calf tenderness Neurological exam: Present: alert. Absent: motor sensory deficit Expanded Neurological exam: Present: protecting the airway Patient oriented to: Present: person, place. Absent: time Motor strength exam: RUE: 5, LUE: 5, RLE: 5, LLE: 5 Eye Response: (3) open to voice Motor Response: (6) obeys commands Verbal Response: (4) confused conversation Psychiatric exam: Present: normal affect, normal mood Skin exam: Present: normal color. Absent: rash Course Vital Signs 10/15/20 10/15/20 11:17 12:59 Pulse Rate 52 L 46 L Respiratory 16 18 Rate Blood Pressure 126/55 125/56 O2 Sat by Pulse 95 100 Oximetry EKG Findings - EKG Comments: EKG Findings:: Sinus bradycardia 47. SC 144. QRS 96. QT 498. QTC 440. Normal axis. Normal QRS. No acute ST change. Medical Decision Making - Medical Decision Making Patient reevaluated and resting comfortably in bed. Patient from [facility] home area patient still unable to get up and walk using a walker like he normally does. Case discussed with Dr. Barcenas, covering for Dr. Li, who admits for Dr. Maldonado, who will admit. - Lab Data Result diagrams: 10/15/20 11:50 10/15/20 11:50 Lab Results 10/15/20 10/15/20 10/15/20 Range/Units 11:44 11:44 11:50 WBC 9.9 (3.8-10.6) k/uL RBC 4.53 (4.30-5.90) m/uL Hgb 14.0 (13.0-17.5) gm/dL Hct 40.2 (39.0-53.0) % MCV 88.8 (80.0-100.0) fL MCH 30.8 (25.0-35.0) pg MCHC 34.7 (31.0-37.0) g/dL RDW 12.5 (11.5-15.5) % Plt Count 221 (150-450) k/uL MPV 7.1 Neutrophils % 83 % Lymphocytes % 10 % Monocytes % 5 % Eosinophils % 0 % Basophils % 0 % Neutrophils # 8.2 H (1.3-7.7) k/uL Lymphocytes # 1.0 (1.0-4.8) k/uL Monocytes # 0.5 (0-1.0) k/uL Eosinophils # 0.0 (0-0.7) k/uL Basophils # 0.0 (0-0.2) k/uL PT (9.0-12.0) sec INR (<1.2) APTT (22.0-30.0) sec Sodium (137-145) mmol/L Potassium (3.5-5.1) mmol/L Chloride (98-107) mmol/L Carbon Dioxide (22-30) mmol/L Anion Gap mmol/L BUN (9-20) mg/dL Creatinine (0.66-1.25) mg/dL Est GFR (CKD-EPI)AfAm (>60 ml/min/1.73 sqM) Est GFR (CKD-EPI)NonAf (>60 ml/min/1.73 sqM) Glucose (74-99) mg/dL Plasma Lactic Acid Henrik (0.7-2.0) mmol/L Calcium (8.4-10.2) mg/dL Total Bilirubin (0.2-1.3) mg/dL AST (17-59) U/L ALT (4-49) U/L Alkaline Phosphatase (38-126) U/L Creatine Kinase (55-170) U/L Troponin I (0.000-0.034) ng/mL Total Protein (6.3-8.2) g/dL Albumin (3.5-5.0) g/dL Urine Color Urine Appearance (Clear) Urine pH (5.0-8.0) Ur Specific [place] (1.001-1.035) Urine Protein (Negative) Urine Glucose (UA) (Negative) Urine Ketones (Negative) Urine Blood (Negative) Urine Nitrite (Negative) Urine Bilirubin (Negative) Urine Urobilinogen (<2.0) mg/dL Ur Leukocyte Esterase (Negative) Urine RBC (0-5) /hpf Urine WBC (0-5) /hpf Ur Squamous Epith Cells (0-4) /hpf Urine Mucus (None) /hpf Coronavirus (PCR) Detected A (Not Detectd) Influenza Type A RNA Not Detected (Not Detectd) Influenza Type B (PCR) Not Detected (Not Detectd) 10/15/20 10/15/20 10/15/20 Range/Units 11:50 11:50 11:50 WBC (3.8-10.6) k/uL RBC (4.30-5.90) m/uL Hgb (13.0-17.5) gm/dL Hct (39.0-53.0) % MCV (80.0-100.0) fL MCH (25.0-35.0) pg MCHC (31.0-37.0) g/dL RDW (11.5-15.5) % Plt Count (150-450) k/uL MPV Neutrophils % % Lymphocytes % % Monocytes % % Eosinophils % % Basophils % % Neutrophils # (1.3-7.7) k/uL Lymphocytes # (1.0-4.8) k/uL Monocytes # (0-1.0) k/uL Eosinophils # (0-0.7) k/uL Basophils # (0-0.2) k/uL PT 10.6 (9.0-12.0) sec INR 1.0 (<1.2) APTT 21.9 L (22.0-30.0) sec Sodium 135 L (137-145) mmol/L Potassium 3.7 (3.5-5.1) mmol/L Chloride 110 H (98-107) mmol/L Carbon Dioxide 20 L (22-30) mmol/L Anion Gap 5 mmol/L BUN 30 H (9-20) mg/dL Creatinine 0.93 (0.66-1.25) mg/dL Est GFR (CKD-EPI)AfAm 87 (>60 ml/min/1.73 sqM) Est GFR (CKD-EPI)NonAf 75 (>60 ml/min/1.73 sqM) Glucose 95 (74-99) mg/dL Plasma Lactic Acid Henrik (0.7-2.0) mmol/L Calcium 7.5 L (8.4-10.2) mg/dL Total Bilirubin 0.8 (0.2-1.3) mg/dL AST 32 (17-59) U/L ALT 20 (4-49) U/L Alkaline Phosphatase 71 (38-126) U/L Creatine Kinase 117 (55-170) U/L Troponin I (0.000-0.034) ng/mL Total Protein 5.9 L (6.3-8.2) g/dL Albumin 2.9 L (3.5-5.0) g/dL Urine Color Yellow Urine Appearance Clear (Clear) Urine pH 5.5 (5.0-8.0) Ur Specific [place] 1.023 (1.001-1.035) Urine Protein 1+ H (Negative) Urine Glucose (UA) Negative (Negative) Urine Ketones Negative (Negative) Urine Blood Negative (Negative) Urine Nitrite Negative (Negative) Urine Bilirubin Negative (Negative) Urine Urobilinogen <2.0 (<2.0) mg/dL Ur Leukocyte Esterase Negative (Negative) Urine RBC 3 (0-5) /hpf Urine WBC 1 (0-5) /hpf Ur Squamous Epith Cells <1 (0-4) /hpf Urine Mucus Rare H (None) /hpf Coronavirus (PCR) (Not Detectd) Influenza Type A RNA (Not Detectd) Influenza Type B (PCR) (Not Detectd) 10/15/20 10/15/20 Range/Units 11:50 11:50 WBC (3.8-10.6) k/uL RBC (4.30-5.90) m/uL Hgb (13.0-17.5) gm/dL Hct (39.0-53.0) % MCV (80.0-100.0) fL MCH (25.0-35.0) pg MCHC (31.0-37.0) g/dL RDW (11.5-15.5) % Plt Count (150-450) k/uL MPV Neutrophils % % Lymphocytes % % Monocytes % % Eosinophils % % Basophils % % Neutrophils # (1.3-7.7) k/uL Lymphocytes # (1.0-4.8) k/uL Monocytes # (0-1.0) k/uL Eosinophils # (0-0.7) k/uL Basophils # (0-0.2) k/uL PT (9.0-12.0) sec INR (<1.2) APTT (22.0-30.0) sec Sodium (137-145) mmol/L Potassium (3.5-5.1) mmol/L Chloride (98-107) mmol/L Carbon Dioxide (22-30) mmol/L Anion Gap mmol/L BUN (9-20) mg/dL Creatinine (0.66-1.25) mg/dL Est GFR (CKD-EPI)AfAm (>60 ml/min/1.73 sqM) Est GFR (CKD-EPI)NonAf (>60 ml/min/1.73 sqM) Glucose (74-99) mg/dL Plasma Lactic Acid Henrik 1.0 (0.7-2.0) mmol/L Calcium (8.4-10.2) mg/dL Total Bilirubin (0.2-1.3) mg/dL AST (17-59) U/L ALT (4-49) U/L Alkaline Phosphatase (38-126) U/L Creatine Kinase (55-170) U/L Troponin I <0.012 (0.000-0.034) ng/mL Total Protein (6.3-8.2) g/dL Albumin (3.5-5.0) g/dL Urine Color Urine Appearance (Clear) Urine pH (5.0-8.0) Ur Specific [place] (1.001-1.035) Urine Protein (Negative) Urine Glucose (UA) (Negative) Urine Ketones (Negative) Urine Blood (Negative) Urine Nitrite (Negative) Urine Bilirubin (Negative) Urine Urobilinogen (<2.0) mg/dL Ur Leukocyte Esterase (Negative) Urine RBC (0-5) /hpf Urine WBC (0-5) /hpf Ur Squamous Epith Cells (0-4) /hpf Urine Mucus (None) /hpf Coronavirus (PCR) (Not Detectd) Influenza Type A RNA (Not Detectd) Influenza Type B (PCR) (Not Detectd) - Radiology Data Radiology results: image reviewed (Chest x-ray does show suspected some basilar interstitial changes within the lungs. No focal airspace disease.) Disposition Clinical Impression: COVID-19, Weak Disposition: ADMITTED IP TO THIS HOSP Is patient prescribed a controlled substance at d/c from ED?: No Referrals: David Jimenez MD [Primary Care Provider] - 1-2 days Decision Time: 14:14
[2020-10-15 12:02] LABS: Basophils % (A) 0 %; Eosinophils % (A) 0 %; HCT 40.2 % (39.0-53.0); Lymphocytes % (A) 10 %; MCH 30.8 pg (25.0-35.0); MCHC 34.7 g/dL (31.0-37.0); MCV 88.8 fL (80.0-100.0); Mean Platelet Volume 7.1; Monocytes # (A) 0.5 k/uL (0-1.0); Monocytes % (A) 5 %; Neutrophils # (A) 8.2 k/uL (1.3-7.7); Neutrophils % (A) 83 %; Platelet Count 221 k/uL (150-450); RBC 4.53 m/uL (4.30-5.90); RDW 12.5 % (11.5-15.5); WBC 9.9 k/uL (3.8-10.6)
[2020-10-15 12:13] LABS: Albumin 2.9 g/dL (3.5-5.0); Calcium 7.5 mg/dL (8.4-10.2); Potassium 3.7 mmol/L (3.5-5.1); Total Bilirubin 0.8 mg/dL (0.2-1.3); Total Protein 5.9 g/dL (6.3-8.2)
[2020-10-15 12:21] LABS: Prothrombin Time 10.6 sec (9.0-12.0)
[2020-10-15 12:24] LABS: Appearance,Urine Clear (Clear); Bilirubin,Urine Negative (Negative); Blood,Urine Negative (Negative); Color,Urine Yellow; Glucose,Urine (UA) Negative (Negative); Ketones,Urine Negative (Negative); Leukocyte Esterase,Urine Negative (Negative); Mucus,Urine Rare /hpf; Nitrite,Urine Negative (Negative); PH, Urine 5.5 (5.0-8.0); Protein,Urine 1+ (Negative); RBC,Urine 3 /hpf (0-5); Specific Gravity,Urine 1.023 (1.001-1.035); Squamous Epithelial Cell,Urine <1 /hpf (0-4); Urobilinogen,Urine <2.0 mg/dL (<2.0); WBC,Urine 1 /hpf (0-5)
[2020-10-15 12:29] LABS: Partial Thromboplastin Time 21.9 sec (22.0-30.0)
--- NOTE | 2020-10-15 12:40 | XR ---
EXAMINATION TYPE: XR chest 2V DATE OF EXAM: 10/15/2020 COMPARISON: Chest x-ray 05/27/[address] 05/29/2020 HISTORY: Fever and lethargy TECHNIQUE: Frontal and lateral views of the chest are obtained. FINDINGS: Patient is rotated and exam is expiratory. There are overlying leads. The aorta is dense. There is no focal air space opacity, pleural effusion, or pneumothorax seen. The cardiac silhouette size is within normal limits. Suspect some basilar interstitial changes within the lungs. The osseou s structures are intact, multilevel thoracic spondylosis is noted. Postop changes noted near the aldo roesophageal junction. IMPRESSION: No acute cardiopulmonary process. Additional findings above.
[2020-10-15] MEDS ORDERED: NALOXONE 0.4 MG/ML 1 ML VIAL IV PRN ×2 (14:15→15:23)
[2020-10-15 14:57] LABS: C Reactive Protein 31.1 mg/L (<10.0)
[2020-10-15] MEDS: ASCORBIC ACID 500 MG TAB PO SCH (15:20)
[2020-10-15] MEDS: SODIUM CHLORIDE 0.9% 1,000 ML IV SCH ×2 (15:20→17:46)
[2020-10-15] MEDS: FAMOTIDINE 20 MG TAB PO SCH (15:20)
[2020-10-15] MEDS: CHOLECALCIFEROL 1,000 UNIT TAB PO SCH (15:20)
[2020-10-15] MEDS: ZINC SULFATE 220 MG CAP PO SCH (15:20)
[2020-10-15] MEDS ORDERED: ACETAMINOPHEN TAB 325 MG TAB PO PRN (15:23)
[2020-10-15] MEDS ORDERED: LORATADINE 10 MG TAB PO PRN (15:25)
[2020-10-15] MEDS ORDERED: QUEtiapine 25 MG TAB PO PRN (15:25)
[2020-10-15] MEDS ORDERED: DOCUSATE 100 MG CAP PO PRN (15:25)
--- NOTE | 2020-10-15 15:32 | P.HPIM ---
History of Present Illness H&P Date: 10/15/20 Chief Complaint: General weakness 84-year-old male presenting to the emergency department from [facility] home with concern for fever and weakness over the past several days. Patient is a very poor historian and history was taken from nursing staff as well as emergency physician. Apparently patient had a fever at the assisted living of 100.2. He has not been eating or drinking much and has not been ambulating due to weakness. Patient reportedly has been more drowsy than normal. Most recently in May of last year patient was treated for bacteremia with Pseudomonas of u ndetermined origin. Evaluation in the emergency department revealed bradycardia and heart rate in the 50s. His temperature was 99.5. His oxygenation was normal on room air. Blood pressure okay. Sodium came back low at 135, BUN 30, creatinine 0.95. Anderson virus testing came back positive. Review of Systems Complete review of system performed, pertinent positives per HPI, otherwise negative Past Medical History Past Medical History: Dementia, GERD/Reflux, Hearing Disorder / Deafness, Hyperlipidemia, Hypertension, Prostate Disorder Additional Past Medical History / Comment(s): severe constipation, hx colon polyps, neuropathy, degenerative disc disease of the lumbar spine, gastroesophageal reflux disease/hiatal hernia, hyperlipidemia, osteoarthritis, memory loss, vitamin D deficiency. History of Any Multi-Drug Resistant Organisms: None Reported Past Surgical History: Adenoidectomy, Hernia Repair, Tonsillectomy Additional Past Surgical History / Comment(s): undescended testicle surg years ago, bilateral cataract surgery, tonsillectomy and adenoidectomy, Lion fundoplication for hiatal hernia, epidural injection for degenerative disc disease of the lumbar spine, colonoscopy a year ago, cystoscopy . Past Anesthesia/Blood Transfusion Reactions: No Reported Reaction Past Psychological History: No Psychological Hx Reported Smoking Status: Former smoker Past Alcohol Use History: Occasional Past Drug Use History: None Reported - Past Family History Mother History Unknown: Yes Family Medical History: No Reported History Father Family Medical History: Coronary Artery Disease (CAD) Daughter(s) Family Medical History: No Reported History (Patient has 2 daughters no major medical problems.) Son(s) Family Medical History: No Reported History (Patient has 2 sons no major medical problems.) Medications and Allergies Home Medications Medication Instructions Recorded Confirmed Type Gabapentin [Neurontin] 400 mg PO HS@199903/24/14 10/15/20 History Tamsulosin HCl [Flomax] 0.4 mg PO DAILY@0803/24/14 10/15/20 History Atorvastatin [Lipitor] 40 mg PO HS@2100 05/01/15 10/15/20 History Cholecalciferol [Vitamin D3 (25 1,000 unit PO DAILY@0800 02/24/16 10/15/20 History Mcg = 1000 Iu)] EPINEPHrine [Epipen 2-Julien] 0.3 mg IM ONCE PRN 02/24/16 10/15/20 History Aspirin [Adult Low Dose Aspirin EC] 81 mg PO HS@1800 05/27/20 10/15/20 History Calcium Polycarbophil [Fiber-Lax] 625 mg PO DAILY@0805/27/20 10/15/20 History Donepezil [Aricept] 10 mg PO HS@1800 05/27/20 10/15/20 History Finasteride [Proscar] 5 mg PO DAILY@0800 05/27/20 10/15/20 History Loratadine 10 mg PO DAILY PRN 05/27/20 10/15/20 History Memantine [Namenda] 10 mg PO BID@0800,199905/27/20 10/15/20 History Sertraline HCl [Zoloft] 100 mg PO DAILY@0805/27/20 10/15/20 History Acetaminophen [Tylenol] 1,000 mg PO ONCE PRN 10/15/20 10/15/20 History Ascorbic Acid [Vitamin C] 500 mg PO BID@0800,199910/15/20 10/15/20 History Dextromethorphn/Acetaminoph/Cp 1 tab PO Q6H PRN 10/15/20 10/15/20 History [Coricidin Hbp Flu Tablet] Docusate [Colace] 100 mg PO DAILY PRN 10/15/20 10/15/20 History Ipratropium [place] [Ipratropium 2 spray EA NOSTRIL 10/15/20 10/15/20 History [place] 0.03%] TID@0800,1399,1999 QUEtiapine FUMARATE [SEROquel] 25 mg PO HS PRN 10/15/20 10/15/20 History Zinc 100 mg PO DAILY@0800 10/15/20 10/15/20 History amLODIPine [Norvasc] 5 mg PO DAILY@0800 10/15/20 10/15/20 History guaiFENesin [Mucinex] 1,200 mg PO BID@08,199910/15/20 10/15/20 History lisinopriL [Zestril] 2.5 mg PO DAILY@0800 10/15/20 10/15/20 History predniSONE See Taper PO DAILY@0810/15/20 10/15/20 History Allergies Allergy/AdvReac Type Severity Reaction Status Date / Time Sulfa (Sulfonamide Allergy Rash/Hives Verified 10/15/20 12:35 Antibiotics) venom-honey bee Allergy "PASSED Verified 10/15/20 12:35 [bee venom (honey bee)] OUT" diphenhydramine HCl AdvReac Hallucinati Verified 10/15/20 12:35 [From Benadryl] ons Physical Exam Vitals: Vital Signs Pulse Resp BP Pulse Ox 10/15/20 14:25 45 L 18 138/85 98 10/15/20 12:59 46 L 18 125/56 100 10/15/20 11:17 52 L 16 126/55 95 Intake and Output 10/15/20 10/15/20 10/15/20 06:59 14:59 22:59 Other: Weight 81.647 kg Constitutional: No acute distress, conversant, pleasant Eyes:Anicteric sclerae, moist conjunctiva, no lid-lag, PERRLA, ENMT: Oropharynx clear, no erythema, exudates Neck: Supple, FROM, no masses, or JVD, No carotid bruits, No thyromegaly Lungs: Clear to auscultation, Clear to percussion, Normal respiratory effort, no accessory muscle use Cardiovascular: Heart regular in rate and rhythm, No murmurs, gallops, or rubs, No peripheral edema Abdominal: Soft, Nontender, no guarding, rebound or rigidity, Normoactive bowel sounds, No hepatomegaly, No splenomegaly, No palpable mass Skin: Normal temperature, tone, texture, turgor, no induration, No subcutaneous nodules, No rash, lesions, No ulcers Extremities: No digital cyanosis, No clubbing, Pedal pulses intact and symmetrical, Radial pulses intact and symmetrical, No calf tenderness Psychiatric: Alert but confused. Neuro: Gen. weakness Results CBC & Chem 7: 10/15/20 11:50 10/15/20 11:50 Labs: Abnormal Lab Results - Last 24 Hours (Table) 10/15/20 10/15/20 10/15/20 Range/Units 11:44 11:50 11:50 Neutrophils # 8.2 H (1.3-7.7) k/uL APTT 21.9 L (22.0-30.0) sec Sodium (137-145) mmol/L Chloride (98-107) mmol/L Carbon Dioxide (22-30) mmol/L BUN (9-20) mg/dL Calcium (8.4-10.2) mg/dL Lactate Dehydrogenase (313-618) U/L C-Reactive Protein (<10.0) mg/L Total Protein (6.3-8.2) g/dL Albumin (3.5-5.0) g/dL Urine Protein (Negative) Urine Mucus (None) /hpf Coronavirus (PCR) Detected A (Not Detectd) 10/15/20 10/15/20 10/15/20 Range/Units 11:50 11:50 11:50 Neutrophils # (1.3-7.7) k/uL APTT (22.0-30.0) sec Sodium 135 L (137-145) mmol/L Chloride 110 H (98-107) mmol/L Carbon Dioxide 20 L (22-30) mmol/L BUN 30 H (9-20) mg/dL Calcium 7.5 L (8.4-10.2) mg/dL Lactate Dehydrogenase 670 H (313-618) U/L C-Reactive Protein 31.1 H (<10.0) mg/L Total Protein 5.9 L (6.3-8.2) g/dL Albumin 2.9 L (3.5-5.0) g/dL Urine Protein 1+ H (Negative) Urine Mucus Rare H (None) /hpf Coronavirus (PCR) (Not Detectd) Assessment and Plan Plan: Covid 19 upper respiratory infection No pneumonia seen on the chest x-ray No indication for treatment with steroids or antivirals at this point as he is not hypoxic. Sinus bradycardia Could be secondary to above Troponin negative Monitor on telemetry Dehydration/generalized weakness/adult failure to thrive IV fluids Chronic Dementia, GERD/Reflux, Hearing Disorder / Deafness, Hyperlipidemia, Hypertension, Benign prostatic hypertrophy Peripheral neuropathy Prostate Disorder All stable Resume meds Patient admitted to inpatient, expected length of stay more than 2 midnights.
[2020-10-15] MEDS: ASPIRIN 81 MG PO SCH (17:15)
[2020-10-15] MEDS: DONEPEZIL 10 MG TAB PO SCH (17:16)
[2020-10-15] MEDS: MEMANTINE 10 MG TAB PO SCH (21:48)
[2020-10-15] MEDS: GABAPENTIN 400 MG CAP PO SCH (21:48)
[2020-10-15] MEDS: ATORVASTATIN 40 MG TAB PO SCH (21:48)
[2020-10-15 23:06] LABS: Ferritin 384.6 ng/mL (22.0-322.0)
[2020-10-16 06:36] LABS: Basophils % (A) 0 %; Eosinophils % (A) 0 %; HCT 41.3 % (39.0-53.0); HGB 13.9 gm/dL (13.0-17.5); Lymphocytes # (A) 1.1 k/uL (1.0-4.8); Lymphocytes % (A) 13 %; MCH 30.5 pg (25.0-35.0); MCHC 33.7 g/dL (31.0-37.0); MCV 90.5 fL (80.0-100.0); Mean Platelet Volume 7.7; Monocytes # (A) 0.4 k/uL (0-1.0); Monocytes % (A) 5 %; Neutrophils # (A) 6.8 k/uL (1.3-7.7); Neutrophils % (A) 80 %; Platelet Count 233 k/uL (150-450); RBC 4.56 m/uL (4.30-5.90); RDW 12.5 % (11.5-15.5); WBC 8.5 k/uL (3.8-10.6)
[2020-10-16] MEDS ORDERED: CHOLECALCIFEROL 1,000 UNIT TAB PO SCH (08:00)
[2020-10-16] MEDS: SODIUM CHLORIDE 0.9% 1,000 ML IV SCH ×4 (09:13→20:51)
[2020-10-16] MEDS: amLODIPine 5 MG TAB PO SCH (09:30)
[2020-10-16] MEDS: SERTRALINE 100 MG TAB PO SCH (09:31)
[2020-10-16] MEDS: MEMANTINE 10 MG TAB PO SCH ×2 (09:31→20:51)
[2020-10-16] MEDS: FINASTERIDE 5 MG TAB PO SCH (09:31)
[2020-10-16] MEDS: ASCORBIC ACID 500 MG TAB PO SCH ×2 (09:32→20:51)
[2020-10-16] MEDS: FAMOTIDINE 20 MG TAB PO SCH ×2 (09:32→20:51)
[2020-10-16] MEDS: CHOLECALCIFEROL 1,000 UNIT TAB PO SCH (09:32)
[2020-10-16] MEDS: ZINC SULFATE 220 MG CAP PO SCH (09:32)
[2020-10-16] MEDS: TAMSULOSIN 0.4 MG CAP.ER.24H PO SCH (09:32)
[2020-10-16] MEDS: ENOXAPARIN 40 MG/0.4 ML SYRINGE SQ SCH (09:32)
[2020-10-16 09:39] LABS: African American GFR (CKD) 89.9 (60.0-200.0); Albumin 3.3 g/dL (3.80-4.90); Albumin/Globulin Ratio 1.43 (1.60-3.17); Anion Gap 7.8 mmol/L (4.00-12.00); BUN/Creat Ratio 22.22 Ratio (12.00-20.00); Calcium 7.5 mg/dL (8.7-10.3); Carbon Dioxide 19.2 mmol/L (21.6-31.8); Globulin 2.3 g/dL (1.6-3.3); Non-African American GFR(CKD) 77.6 (60.0-200.0); Potassium 3.7 mmol/L (3.5-5.5); Total Bilirubin 0.5 mg/dL (0.2-1.2); Total Protein 5.6 g/dL (6.2-8.2)
[2020-10-16] MEDS: IPRATROPIUM BROMIDE 0.06% NASAL SPRAY (15 ML) EA NOSTRIL SCH ×2 (11:33→15:26)
[2020-10-16 14:17] VITALS: BMI 25.8
[2020-10-16] MEDS: ASPIRIN 81 MG PO SCH (16:04)
[2020-10-16] MEDS: DONEPEZIL 10 MG TAB PO SCH (16:04)
--- NOTE | 2020-10-16 18:20 | P.PN ---
Subjective Progress Note Date: 10/16/20 Principal diagnosis: Change in mental status Patient is more awake today compared to yesterday. He is answering questions sometimes appropriately and sometimes not. It is unclear to me how his baseline exactly looks like. According to nursing staff he was retaining urine this morning and a Bryan catheter had to be placed. Objective - Vital Signs Vital signs: Vital Signs Temp 97.9 F 10/16/20 16:21 Pulse 62 10/16/20 12:17 Resp 18 10/16/20 12:17 BP 150/71 10/16/20 12:17 Pulse Ox 94 L 10/16/20 16:21 Intake & Output 10/15/20 10/16/20 10/16/20 18:59 06:59 18:59 Intake Total 440 1040 Output Total 2080 1914 Balance 440 -20805 Weight 81.647 kg 81.647 kg Intake: Intake, IV Titration 320 640 Amount Sodium Chloride 0.9% 1, 320 640 000 ml @ 80 mls/hr IV . [id number] [facility] Rx#:[id number] Oral 120 400 Output: Urine 1100 1400 Uretheral (Bryan) 1100 1100 Post Void Residual 981 515 Other: Voiding Method Diaper Diaper - Exam Constitutional: No acute distress, conversant, pleasant Eyes:Anicteric sclerae, moist conjunctiva, no lid-lag, PERRLA, ENMT: Oropharynx clear, no erythema, exudates Neck: Supple, FROM, no masses, or JVD, No carotid bruits, No thyromegaly Lungs: Clear to auscultation, Clear to percussion, Normal respiratory effort, no accessory muscle use Cardiovascular: Heart regular in rate and rhythm, No murmurs, gallops, or rubs, No peripheral edema Abdominal: Soft, Nontender, no guarding, rebound or rigidity, Normoactive bowel sounds, No hepatomegaly, No splenomegaly, No palpable mass Skin: Normal temperature, tone, texture, turgor, no induration, No subcutaneous nodules, No rash, lesions, No ulcers Extremities: No digital cyanosis, No clubbing, Pedal pulses intact and symmetrical, Radial pulses intact and symmetrical, No calf tenderness Psychiatric: Alert but confused. Neuro: Gen. weakness - Labs CBC & Chem 7: 10/16/20 06:01 10/16/20 06:01 Labs: Abnormal Lab Results - Last 24 Hours (Table) 10/15/20 10/16/20 Range/Units 11:50 06:01 Sodium 133 L (135-145) mmol/L Carbon Dioxide 19.2 L (21.6-31.8) mmol/L BUN/Creatinine Ratio 22.22 H (12.00-20.00) Ratio Calcium 7.5 L (8.7-10.3) mg/dL Ferritin 384.6 H (22.0-322.0) ng/mL Total Protein 5.6 L (6.2-8.2) g/dL Albumin 3.30 L (3.80-4.90) g/dL Albumin/Globulin Ratio 1.43 L (1.60-3.17) g/dL Microbiology - Last 24 Hours (Table) 10/15/20 11:50 Blood Culture - Preliminary Blood No Growth after 24 hours 10/15/20 11:50 Blood Culture - Preliminary Blood No Growth after 24 hours Assessment and Plan Plan: Covid 19 pneumonia/acute hypoxemic respiratory failure Chest x-ray in a.m. Patient starting to become hypoxic this morning Currently requiring 2 L of nasal cannula Start Decadron 6 mg daily IV Urinary retention Straight cath was tried multiple times but he continues to retain Bryan placed Sinus bradycardia Could be secondary to above Troponin negative Resolved Dehydration/generalized weakness/adult failure to thrive D/c IV fluids to keep him on the dry side in light of above Chronic Dementia, GERD/Reflux, Hearing Disorder / Deafness, Hyperlipidemia, Hypertension, Benign prostatic hypertrophy Peripheral neuropathy Prostate Disorder All stable Resume meds Disposition: Back to adult foster care Anticipated discharge: 3-4 days.
[2020-10-16] MEDS: ATORVASTATIN 40 MG TAB PO SCH (20:51)
[2020-10-16] MEDS: DEXAMETHASONE SOD PHOSPHATE 10 MG/ML 1 ML VIAL IV SCH (20:51)
[2020-10-16] MEDS: GABAPENTIN 400 MG CAP PO SCH (20:51)
[2020-10-17 06:44] LABS: Basophils % (A) 0 %; Eosinophils % (A) 0 %; HCT 42.4 % (39.0-53.0); HGB 14.7 gm/dL (13.0-17.5); Lymphocytes # (A) 0.7 k/uL (1.0-4.8); Lymphocytes % (A) 9 %; MCH 30.6 pg (25.0-35.0); MCHC 34.7 g/dL (31.0-37.0); MCV 88.1 fL (80.0-100.0); Mean Platelet Volume 7.3; Monocytes # (A) 0.3 k/uL (0-1.0); Monocytes % (A) 4 %; Neutrophils # (A) 6.6 k/uL (1.3-7.7); Neutrophils % (A) 86 %; Platelet Count 260 k/uL (150-450); RBC 4.81 m/uL (4.30-5.90); RDW 12.4 % (11.5-15.5); WBC 7.7 k/uL (3.8-10.6)
[2020-10-17] MEDS: IPRATROPIUM BROMIDE 0.06% NASAL SPRAY (15 ML) EA NOSTRIL SCH ×4 (07:19→21:06)
[2020-10-17] MEDS: ENOXAPARIN 40 MG/0.4 ML SYRINGE SQ SCH (08:02)
[2020-10-17] MEDS: CHOLECALCIFEROL 1,000 UNIT TAB PO SCH (08:02)
[2020-10-17] MEDS: DEXAMETHASONE SOD PHOSPHATE 10 MG/ML 1 ML VIAL IV SCH (08:02)
[2020-10-17] MEDS: TAMSULOSIN 0.4 MG CAP.ER.24H PO SCH (08:03)
[2020-10-17] MEDS: FINASTERIDE 5 MG TAB PO SCH (08:03)
[2020-10-17] MEDS: SERTRALINE 100 MG TAB PO SCH (08:03)
[2020-10-17] MEDS: FAMOTIDINE 20 MG TAB PO SCH ×2 (08:03→21:06)
[2020-10-17] MEDS: amLODIPine 5 MG TAB PO SCH (08:03)
[2020-10-17] MEDS: ZINC SULFATE 220 MG CAP PO SCH (08:03)
[2020-10-17] MEDS: ASCORBIC ACID 500 MG TAB PO SCH ×2 (08:03→21:06)
[2020-10-17] MEDS: MEMANTINE 10 MG TAB PO SCH ×2 (08:38→21:06)
[2020-10-17 09:31] LABS: African American GFR (CKD) 94.4 (60.0-200.0); Anion Gap 8.6 mmol/L (4.00-12.00); BUN/Creat Ratio 22.5 Ratio (12.00-20.00); Carbon Dioxide 22.4 mmol/L (21.6-31.8); Magnesium 1.8 mg/dL (1.5-2.4); Non-African American GFR(CKD) 81.5 (60.0-200.0); Potassium 3.8 mmol/L (3.5-5.5)
--- NOTE | 2020-10-17 12:34 | P.PN ---
Subjective Progress Note Date: 10/17/20 Principal diagnosis: Change in mental status According to nursing staff patient has been profoundly weak, is not able to get up by himself at this point. He is not able to provide any history. According to her son he does have baseline confusion secondary to dementia. No fevers recorded. This morning was taken off oxygen and his sats were 92-92% on room air. Objective - Vital Signs Vital signs: Vital Signs Temp 97.3 F L 10/17/20 11:00 Pulse 65 10/17/20 11:00 Resp 17 10/17/20 11:00 BP 181/72 10/17/20 11:00 Pulse Ox 95 10/17/20 11:00 Intake & Output 10/16/20 10/17/20 10/17/20 18:59 06:59 18:59 Intake Total 1040 60 Output Total 1915 800 Balance -875 -740 Weight 81.647 kg Intake: Intake, IV Titration 640 Amount Sodium Chloride 0.9% 1, 640 000 ml @ 80 mls/hr IV . [id number] [facility] Rx#:[id number] Oral 400 60 Output: Urine 1400 800 Uretheral (Bryan) 1100 Post Void Residual 515 Other: Voiding Method Diaper Indwelling Catheter Indwelling Catheter - Exam Constitutional: No acute distress, conversant, pleasant Eyes:Anicteric sclerae, moist conjunctiva, no lid-lag, PERRLA, ENMT: Oropharynx clear, no erythema, exudates Neck: Supple, FROM, no masses, or JVD, No carotid bruits, No thyromegaly Lungs: Clear to auscultation, Clear to percussion, Normal respiratory effort, no accessory muscle use Cardiovascular: Heart regular in rate and rhythm, No murmurs, gallops, or rubs, No peripheral edema Abdominal: Soft, Nontender, no guarding, rebound or rigidity, Normoactive bowel sounds, No hepatomegaly, No splenomegaly, No palpable mass Skin: Normal temperature, tone, texture, turgor, no induration, No subcutaneous nodules, No rash, lesions, No ulcers Extremities: No digital cyanosis, No clubbing, Pedal pulses intact and symmetrical, Radial pulses intact and symmetrical, No calf tenderness Psychiatric: Alert but confused. Neuro: Gen. weakness - Labs CBC & Chem 7: 10/17/20 05:31 10/17/20 05:31 Labs: Abnormal Lab Results - Last 24 Hours (Table) 10/17/20 10/17/20 Range/Units 05:31 05:31 Lymphocytes # 0.7 L (1.0-4.8) k/uL Sodium 134 L (135-145) mmol/L BUN/Creatinine Ratio 22.50 H (12.00-20.00) Ratio Glucose 137 H (70-110) mg/dL Calcium 8.0 L (8.7-10.3) mg/dL Microbiology - Last 24 Hours (Table) 10/15/20 11:50 Blood Culture - Preliminary Blood No Growth after 24 hours 10/15/20 11:50 Blood Culture - Preliminary Blood No Growth after 24 hours Assessment and Plan Plan: Covid 19 pneumonia/acute hypoxemic respiratory failure Hypoxia improving, wean down FiO2 Continue Decadron 6 mg daily IV Urinary retention Straight cath was tried multiple times initially in the admission but he continued to retain Bryan placed Sinus bradycardia Could be secondary to above Troponin negative Resolved Dehydration/generalized weakness/adult failure to thrive Treated with IV fluids on admission Seen by PT Chronic Dementia, GERD/Reflux, Hearing Disorder / Deafness, Hyperlipidemia, Hypertension, Benign prostatic hypertrophy Peripheral neuropathy Prostate Disorder All stable Resume meds Disposition: Rehab, geriatric social worker aware, discussed with nursing staff Anticipated discharge: 3-4 days.
[2020-10-17] MEDS: DONEPEZIL 10 MG TAB PO SCH (17:18)
[2020-10-17] MEDS: ASPIRIN 81 MG PO SCH (17:18)
[2020-10-17] MEDS: GABAPENTIN 400 MG CAP PO SCH (21:06)
[2020-10-17] MEDS: ATORVASTATIN 40 MG TAB PO SCH (21:06)
[2020-10-18 08:49] LABS: HCT 40.1 % (39.0-53.0); HGB 14.5 gm/dL (13.0-17.5); MCH 31.9 pg (25.0-35.0); MCHC 36.2 g/dL (31.0-37.0); Platelet Count 306 k/uL (150-450); RBC 4.56 m/uL (4.30-5.90); RDW 12.1 % (11.5-15.5); WBC 16.4 k/uL (3.8-10.6)
[2020-10-18 09:01] LABS: ALT 21 U/L (4-49); AST 27 U/L (17-59); African American GFR (CKD) 88 (>60 ml/min/1.73 sqM); Albumin 2.9 g/dL (3.5-5.0); Albumin/Globulin Ratio 0.9; Alkaline Phosphatase 71 U/L (38-126); Anion Gap 4 mmol/L; Blood Urea Nitrogen 22 mg/dL (9-20); Calcium 8.3 mg/dL (8.4-10.2); Carbon Dioxide 26 mmol/L (22-30); Chloride 105 mmol/L (98-107); Globulin 3.1 g/dL; Glucose 98 mg/dL (74-99); LDH 534 U/L (313-618); Non-African American GFR(CKD) 76 (>60 ml/min/1.73 sqM); Potassium 3.8 mmol/L (3.5-5.1); Sodium 135 mmol/L (137-145); Total Bilirubin 0.8 mg/dL (0.2-1.3)
[2020-10-18] MEDS: amLODIPine 5 MG TAB PO SCH (09:10)
[2020-10-18] MEDS: FINASTERIDE 5 MG TAB PO SCH (09:10)
[2020-10-18] MEDS: SERTRALINE 100 MG TAB PO SCH (09:10)
[2020-10-18] MEDS: MEMANTINE 10 MG TAB PO SCH ×2 (09:10→20:54)
[2020-10-18] MEDS: TAMSULOSIN 0.4 MG CAP.ER.24H PO SCH (09:10)
[2020-10-18] MEDS: CHOLECALCIFEROL 1,000 UNIT TAB PO SCH (09:11)
[2020-10-18] MEDS: ASCORBIC ACID 500 MG TAB PO SCH ×2 (09:11→20:55)
[2020-10-18] MEDS: ENOXAPARIN 40 MG/0.4 ML SYRINGE SQ SCH (09:11)
[2020-10-18] MEDS: FAMOTIDINE 20 MG TAB PO SCH ×2 (09:11→20:54)
[2020-10-18] MEDS: ZINC SULFATE 220 MG CAP PO SCH (09:11)
[2020-10-18] MEDS: DEXAMETHASONE SOD PHOSPHATE 10 MG/ML 1 ML VIAL IV SCH (09:11)
[2020-10-18 10:41] LABS: C Reactive Protein 22.8 mg/L (<10.0)
--- NOTE | 2020-10-18 10:55 | P.PN ---
Subjective Progress Note Date: 10/18/20 Principal diagnosis: fevers Patient is an 84-year-old male with dementia, GERD, hypertension, and dyslipidemia who presented from his [facility] home secondary to fever and weakness. He was treated here in May for Pseudomonas with bacteremia. In the emergency department he was found to have sinus bradycardia heart rate of 50. He was satting 95% on room air. Laboratory analysis showed a sodium of 135, chloride 110, carbon dioxide 20, BUN 30, calcium 7.5, ferritin 384, LDH 670, CRP 31.1, COVID rapid positive. X-ray demonstrated no acute process. Initially he was admitted and started on supportive care as he was not hypoxic and did not meet requirements for severe or Decadron. He did develop some mild hypoxemia requiring 2 L nasal cannula and was subsequently started on Decadron. He developed urinary retention requiring Bryan catheter insertion. Patient seen and examined at bedside. He denies any difficulty in breathing, he denies any pain. He admits to not knowing what year it is and he believes we are in the [facility]. General: ill appearing , no distress, appears at stated age Derm: warm, dry Head: atraumatic, normocephalic, symmetric Eyes: EOMI, no lid lag, anicteric sclera Mouth: no lip lesion, mucus membranes moist Cardiovascular: S1S2 reg, no murmur, positive posterior tibial pulse bilateral, Lungs: CTA bilateral, no rhonchi, no rales , no accessory muscle use Abdominal: soft, nontender to palpation, no guarding, no appreciable organomegaly Ext: no gross muscle atrophy, no edema, no contractures Neuro: CN II-XI grossly intact, no focal neuro deficits Psych: Alert, oriented, appropriate affect Covid 19 upper respiratory tract infection, acute hypoxic respiratory failure -Change Decadron to oral -Continue with vitamin D, vitamin C, aspirin, pepcid, lovenox, and zinc -Add melatonin. Acute urinary retention His Bryan catheter in place -On Proscar and Flomax -Patient with history of severe constipation and this may be the root cause. Will check KUB and ask nursing to advise of any bowel movements. Sinus bradycardia, asymptomatic and-on any rate controlling medications and have an asymptomatic -Continue monitoring Leukocytosis, secondary to Decadron -We will supportive care Dehydration with prerenal azotemia -IV fluids -Re: Dementia without behavioral disturbances -Safe and supportive environment -Aricept, Namenda Hypertension, controlled -Continue with Norvasc, lisinopril Chronic: GERD Dyslipidemia BPH Peripheral neuropathy DVT prophylaxis: Lovenox Discussed with: ashanti chi Anticipated discharge: today or tomorrow Anticipated discharge place: SNF A total of 35 minutes was spent on the care of this complex patient more than 50% of the time was spent in counseling and care coordination. Objective - Vital Signs Vital signs: Vital Signs Temp 98.2 F 10/18/20 04:47 Pulse 55 L 10/18/20 04:47 Resp 16 10/18/20 04:47 BP 151/74 10/18/20 04:47 Pulse Ox 94 L 10/18/20 04:47 Intake & Output 10/17/20 10/18/20 10/18/20 18:59 06:59 18:59 Intake Total 290 Output Total 700 Balance -410 Intake: Oral 290 Output: Urine 700 Uretheral (Bryan) 700 Other: Voiding Method Indwelling Catheter Indwelling Catheter Indwelling Catheter # Bowel Movements 0 - Labs CBC & Chem 7: 10/18/20 08:32 10/18/20 08:32 Labs: Abnormal Lab Results - Last 24 Hours (Table) 10/18/20 10/18/20 Range/Units 08:32 08:32 WBC 16.4 H (3.8-10.6) k/uL Sodium 135 L (137-145) mmol/L BUN 22 H (9-20) mg/dL Calcium 8.3 L (8.4-10.2) mg/dL C-Reactive Protein 22.8 H (<10.0) mg/L Total Protein 6.0 L (6.3-8.2) g/dL Albumin 2.9 L (3.5-5.0) g/dL Microbiology - Last 24 Hours (Table) 10/15/20 11:50 Blood Culture - Preliminary Blood No Growth after 48 hours 10/15/20 11:50 Blood Culture - Preliminary Blood No Growth after 48 hours
[2020-10-18 14:56] LABS: Ferritin 439.5 ng/mL (22.0-322.0)
[2020-10-18] MEDS: IPRATROPIUM BROMIDE 0.06% NASAL SPRAY (15 ML) EA NOSTRIL SCH ×2 (15:29→20:55)
--- NOTE | 2020-10-18 17:06 | XR ---
EXAMINATION TYPE: XR abdomen acute w cxr DATE OF EXAM: 10/18/2020 COMPARISON: 10/15/2020 HISTORY: Constipation. Lump on the right side of the abdomen. TECHNIQUE: 5 views FINDINGS: There is some pulmonary vascular congestion. Heart appears enlarged. There are chest leads. There is no sign of intestinal obstruction or pneumoperitoneum. Fecal pattern is fairly normal. There is fecal material down to the rectum. There are no pathologic calcifications over the kidneys. There is no evidence of a mass. IMPRESSION: There is evidence for congestive heart failure that appears increased compared to chest x -ray 10/15/2020. No acute abnormality of the abdomen and pelvis.
[2020-10-18] MEDS ORDERED: bisacodyL 10 MG SUPP RECTAL STA (18:07)
[2020-10-18] MEDS: ASPIRIN 81 MG PO SCH (18:13)
[2020-10-18] MEDS: DONEPEZIL 10 MG TAB PO SCH (18:13)
[2020-10-18] MEDS: GABAPENTIN 400 MG CAP PO SCH (20:54)
[2020-10-18] MEDS: ATORVASTATIN 40 MG TAB PO SCH (20:54)
[2020-10-18] MEDS ORDERED: MELATONIN 5 MG TABLET PO SCH (21:00)
[2020-10-19 07:24] LABS: Basophils % (A) 0 %; Eosinophils # (A) 0.1 k/uL (0-0.7); Eosinophils % (A) 0 %; HCT 39.8 % (39.0-53.0); HGB 13.7 gm/dL (13.0-17.5); Lymphocytes # (A) 1.8 k/uL (1.0-4.8); Lymphocytes % (A) 12 %; MCH 30.7 pg (25.0-35.0); MCHC 34.3 g/dL (31.0-37.0); MCV 89.4 fL (80.0-100.0); Mean Platelet Volume 7.1; Monocytes # (A) 0.9 k/uL (0-1.0); Monocytes % (A) 6 %; Neutrophils # (A) 12.7 k/uL (1.3-7.7); Neutrophils % (A) 81 %; Platelet Count 339 k/uL (150-450); RBC 4.45 m/uL (4.30-5.90); RDW 12.1 % (11.5-15.5); WBC 15.7 k/uL (3.8-10.6)
[2020-10-19] MEDS: amLODIPine 5 MG TAB PO SCH (08:36)
[2020-10-19] MEDS: MEMANTINE 10 MG TAB PO SCH (08:36)
[2020-10-19] MEDS: SERTRALINE 100 MG TAB PO SCH (08:36)
[2020-10-19] MEDS: ASCORBIC ACID 500 MG TAB PO SCH (08:36)
[2020-10-19] MEDS: FAMOTIDINE 20 MG TAB PO SCH (08:36)
[2020-10-19] MEDS: ZINC SULFATE 220 MG CAP PO SCH (08:36)
[2020-10-19] MEDS: TAMSULOSIN 0.4 MG CAP.ER.24H PO SCH (08:36)
[2020-10-19] MEDS: FINASTERIDE 5 MG TAB PO SCH (08:36)
[2020-10-19] MEDS: ENOXAPARIN 40 MG/0.4 ML SYRINGE SQ SCH (08:37)
[2020-10-19] MEDS ORDERED: dexAMETHasone 2 MG TAB PO SCH (09:00)
[2020-10-19] MEDS ORDERED: CHOLECALCIFEROL 25 MCG (1000 IU) TABLET PO SCH (09:00)
[2020-10-19 10:44] VITALS: BP 129/67; PULSE 63; RESP 18; TEMP 97.8
--- NOTE | 2020-10-19 12:16 | P.DS ---
Providers Date of admission: 10/15/20 14:15 Expected date of discharge: 10/19/20 Attending physician: Ricardo Li Primary care physician: David [facility] Course: Presenting complaint: Fever Hospital course: Patient is an 84-year-old male with dementia, GERD, hypertension, and dyslipidemia who presented from his [facility] home secondary to fever and weakness. He was treated here in May for Pseudomonas with bacteremia. In the emergency department he was found to have sinus bradycardia heart rate of 50. Pulse ox- 95% on room air. Laboratory analysis showed a sodium of 135, chloride 110, carbon dioxide 20, BUN 30, calcium 7.5, ferritin 384, LDH 670, CRP 31.1, COVID rapid positive. X-ray demonstrated no acute process. Initially he was admitted and started on supportive care as he was not hypoxic and did not meet requirements for severe or Decadron. He did develop some mild hypoxemia requiring 2 L nasal cannula and was subsequently started on Decadron. He developed urinary retention requiring Bryan catheter insertion. Today-laying in bed. Had about 50% - breakfast. Pulse ox 94% on room air. Discussed with patient. Stable. No cough no shortness of breath. Given the COVID 19 and decreased activity we'll give 4 weeks course of low-dose xarelto Discussion and discharge planning more than 35 minutes On examination: VITAL SIGNS: 97.8, 63, 18, 129/67, 94% room air GENERAL APPEARANCE: Laying in bed, awake, bit tired. HEENT: Normal external appearance of nose and ear. Oral cavity normal EYES: Pupils equal. Conjunctiva normal. NECK: JVD not raised. Mass not palpable. RESPIRATORY: Respiratory effort normal. Lungs decreased breath sounds. CARDIOVASCULAR: First and second sounds normal. No edema. ABDOMEN: Soft. Liver and spleen not palpable. No tenderness. No mass palpable. PSYCHIATRY: Answering simple questions Investigations: White count 15.7 hemoglobin 13.7 339 D-dimer 1.59 CRP 22.8 Sodium 135 potassium 3.8 creatinine 0.9 to EKG tracing-sinus rhythm. 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 -Safe and supportive environment -Aricept, Namenda Essential Hypertension, controlled -Continue with Norvasc, lisinopril Chronic, medical conditions: GERD Dyslipidemia BPH Peripheral neuropathy Disposition: F/[facility] in [facility] Patient Condition at Discharge: Stable Plan - Discharge Summary Discharge Rx Participant: No New Discharge Prescriptions: New dexAMETHasone [Hexadrol] 6 mg PO DAILY #27 tab Melatonin 5 mg PO HS tablet Famotidine [Pepcid] 20 mg PO BID tab Rivaroxaban [Xarelto] 0 mg PO DAILY #28 tab Continue Tamsulosin HCl [Flomax] 0.4 mg PO DAILY@0800 Atorvastatin [Lipitor] 40 mg PO HS@2100 Cholecalciferol [Vitamin D3 (25 Mcg = 1000 Iu)] 1,000 unit PO DAILY@0800 EPINEPHrine [Epipen 2-Julien] 0.3 mg IM ONCE PRN PRN Reason: BEE STING REACTION Sertraline HCl [Zoloft] 100 mg PO DAILY@0800 Finasteride [Proscar] 5 mg PO DAILY@0800 Calcium Polycarbophil [Fiber-Lax] 625 mg PO DAILY@0800 Memantine [Namenda] 10 mg PO BID@0800,1999 Aspirin [Adult Low Dose Aspirin EC] 81 mg PO HS@1800 Donepezil [Aricept] 10 mg PO HS@1800 QUEtiapine FUMARATE [SEROquel] 25 mg PO HS PRN PRN Reason: Insomnia amLODIPine [Norvasc] 5 mg PO DAILY@0800 Ipratropium Mak[place]eli [Ipratropium [place] 0.03%] 2 spray EA NOSTRIL TID@0800,1400,1999 lisinopriL [Zestril] 2.5 mg PO DAILY@0800 Ascorbic Acid [Vitamin C] 500 mg PO BID@0800,1999 Zinc 100 mg PO DAILY@0800 Gabapentin [Neurontin] 400 mg PO HS@1999 #3 cap Discontinued Loratadine 10 mg PO DAILY PRN PRN Reason: Seasonal Allergies Acetaminophen [Tylenol] 1,000 mg PO ONCE PRN PRN Reason: Fever And/ Or Pain Docusate [Colace] 100 mg PO DAILY PRN PRN Reason: Constipation Dextromethorphn/Acetaminoph/Cp [Coricidin Hbp Flu Tablet] 1 tab PO Q6H PRN PRN Reason: seasonal allergies guaiFENesin [Mucinex] 1,200 mg PO BID@799,1999 predniSONE See Taper PO DAILY@0800 Discharge Medication List Tamsulosin HCl [Flomax] 0.4 mg PO DAILY@0803/24/14 [History] Atorvastatin [Lipitor] 40 mg PO HS@2100 05/01/15 [History] Cholecalciferol [Vitamin D3 (25 Mcg = 1000 Iu)] 1,000 unit PO DAILY@79902/24/16 [History] EPINEPHrine [Epipen 2-Julien] 0.3 mg IM ONCE PRN 02/24/16 [History] Aspirin [Adult Low Dose Aspirin EC] 81 mg PO HS@1800 05/27/20 [History] Calcium Polycarbophil [Fiber-Lax] 625 mg PO DAILY@79905/27/20 [History] Donepezil [Aricept] 10 mg PO HS@1800 05/27/20 [History] Finasteride [Proscar] 5 mg PO DAILY@79905/27/20 [History] Memantine [Namenda] 10 mg PO BID@799,199905/27/20 [History] Sertraline HCl [Zoloft] 100 mg PO DAILY@79905/27/20 [History] Ascorbic Acid [Vitamin C] 500 mg PO BID@799,199910/15/20 [History] Ipratropium [place]eli [Ipratropium [place]eli 0.03%] 2 spray EA NOSTRIL TID@0800,1400,199910/15/20 [History] QUEtiapine FUMARATE [SEROquel] 25 mg PO HS PRN 10/15/20 [History] Zinc 100 mg PO DAILY@79910/15/20 [History] amLODIPine [Norvasc] 5 mg PO DAILY@79910/15/20 [History] lisinopriL [Zestril] 2.5 mg PO DAILY@79910/15/20 [History] Famotidine [Pepcid] 20 mg PO BID tab 10/19/20 [Rx] Gabapentin [Neurontin] 400 mg PO HS@1999 #3 cap 10/19/20 [Rx] Melatonin 5 mg PO HS tablet 10/19/20 [Rx] Rivaroxaban [Xarelto] 0 mg PO DAILY #28 tab 10/19/20 [Rx] dexAMETHasone [Hexadrol] 6 mg PO DAILY #27 tab 10/19/20 [Rx] Follow up Appointment(s)/Referral(s): David Jimenez MD [Primary Care Provider] - As Needed
[2020-10-19 12:30] LABS: African American GFR (CKD) 79.2 (60.0-200.0); Albumin 3.5 g/dL (3.80-4.90); Albumin/Globulin Ratio 1.52 (1.60-3.17); Anion Gap 3.6 mmol/L (4.00-12.00); C Reactive Protein 1.8 mg/dL (0.0-0.8); Calcium 8.4 mg/dL (8.7-10.3); Carbon Dioxide 25.4 mmol/L (21.6-31.8); Ferritin 341.4 ng/mL (22.0-322.0); Globulin 2.3 g/dL (1.6-3.3); Non-African American GFR(CKD) 68.3 (60.0-200.0); Potassium 3.8 mmol/L (3.5-5.5); Total Bilirubin 0.5 mg/dL (0.3-1.2); Total Protein 5.8 g/dL (6.2-8.2)
== END 2020-10-19 14:23 | DRG 177 ==
LOC: EC 11:14 → 6NMEDSUR 14:15 → 4SSUR 10-18 16:35
PROVIDERS: ADMIT Hospitalist; ATTEND Hospitalist
DX: U07.1 COVID-19 (principal); J12.82 Pneumonia due to coronavirus disease 2019; J96.01 Acute respiratory failure with hypoxia; E78.5 Hyperlipidemia, unspecified; E86.0 Dehydration; F03.90 Unspecified dementia, unspecified severity, without behavioral disturbance, psychotic disturbance, mood disturbance, and anxiety; G62.9 Polyneuropathy, unspecified; H91.90 Unspecified hearing loss, unspecified ear; I10 Essential (primary) hypertension; K21.9 Gastro-esophageal reflux disease without esophagitis; N40.1 Benign prostatic hyperplasia with lower urinary tract symptoms; R33.8 Other retention of urine; R62.7 Adult failure to thrive; T38.0X5A Adverse effect of glucocorticoids and synthetic analogues, initial encounter; M51.36 Other intervertebral disc degeneration, lumbar region; R00.1 Bradycardia, unspecified; R41.3 Other amnesia; K59.00 Constipation, unspecified; R79.89 Other specified abnormal findings of blood chemistry; Z98.41 Cataract extraction status, right eye; Z88.2 Allergy status to sulfonamides; Z82.49 Family history of ischemic heart disease and other diseases of the circulatory system; Z79.82 Long term (current) use of aspirin; Z79.899 Other long term (current) drug therapy; Z87.19 Personal history of other diseases of the digestive system; Z87.891 Personal history of nicotine dependence; Z88.8 Allergy status to other drugs, medicaments and biological substances; Z91.030 Bee allergy status; Z86.010 Personal history of colon polyps; Z98.42 Cataract extraction status, left eye; Z98.890 Other specified postprocedural states
CPT/HCPCS: 36415; 71046; 74022; 80048; 80053; 81001; 82550; 82728; 83605; 83615; 83735; 84484; 85025; 85027; 85379; 85610; 85730; 86140; 87040; 87502; 87635; 93005; 99285

== ENCOUNTER 2021-01-19 15:06 | Inpatient (IN) | payer MEDICARE, BC ==
--- NOTE | 2021-01-19 15:50 | ED ---
General Adult HPI - General Chief complaint: Altered Mental Status Stated complaint: UTI Time Seen by Provider: 01/19/21 15:18 Source: family Mode of arrival: wheelchair Limitations: no limitations - History of Present Illness Initial comments: Dictation was produced using Step-In dictation software. please excuse any grammatical, word or spelling errors. This patient was cared for during a federal and state declared state of emergency secondary to Covid 19 Chief Complaint: 85-year-old male brought in by son from [facility] for altered mental status concerns of development of sepsis History of Present Illness: And is an 85-year-old male he has multiple comorbidities. Has history of dementia and at baseline has chronic mental confusion. Over the last couple days has been seemingly weak and more confused according to son who received report from assisted living [facility]. He was told to come to the emergency department to be evaluated given his medical history of sepsis. In September he was admitted for COVID-19 and bacteremia. Patient does not know why he is here. He does appear to be resting comfortably at bedside according the son who is providing the history present illness. Patient has no complaints. His chronic indwelling Bryan catheter. He is currently on his second antibiotic to treat urinary tract infection. He completed a five-day course of nitrofurantoin and knows currently on Augmentin. The ROS documented in this emergency department record has been reviewed and confirmed by me. Those systems with pertinent positive or negative responses have been documented in the HPI. All other systems are other negative and/or noncontributory. PHYSICAL EXAM: General Impression: Alert and oriented x3, not in acute distress HEENT: Normocephalic atraumatic, extra-ocular movements intact, pupils equal and reactive to light bilaterally, mucous membranes moist. Cardiovascular: Heart regular rate and rhythm Chest: Able to complete full sentences, no retractions, no tachypnea Abdomen: abdomen soft, non-tender, non-distended, no organomegaly Musculoskeletal: Pulses present and equal in all extremities, no peripheral edema Motor: no focal deficits noted Neurological: CN II-XII grossly intact, no focal motor or sensory deficits noted Skin: Intact with no visualized rashes Psych: Normal affect and mood : Indwelling Bryan catheter without any erythema or discharge at the insertion site at the distal urethra. No rash. ED course: 85-year-old male with multiple comorbidities presents to the emergency department for evaluation vital signs upon arrival are within acceptable limits. Physical examination is benign. Laboratory evaluation obtained. CBC, coag panel, metabolic panel is unremarkable. Urinalysis shows 56 white blood cells with 32 red blood cells. Urine sample was taken from the Bryan catheter which there is concern for likely colonization. Nonetheless he is ready being treated with antibiotics. Computed tomography scan of the brain shows area of hypodensity in the right parietal lobe. Age-indeterminate. Given positive CT findings recommended inpatient ad mission with neurology consultation. Patient given a dose of aspirin for concerns of recent CVA. Patient not a candidate for TPA given that unclear time of onset. Case discussed with son physician Dr. Asencio who is willing to accept patients care. Neurology will be consulted. EKG interpretation: Ventricular rate 57, sinus bradycardia,. Interval 150, QRS 80, QTc 441. No IL prolongation, no QTC prolongation, no ST or T-wave changes noted. EKG compared to 2020 showing no changes. Overall, this EKG is unremarkable - Related Data Home Medications Medication Instructions Recorded Confirmed Atorvastatin [Lipitor] 40 mg PO HS@2200 05/01/15 01/19/21 Cholecalciferol [Vitamin D3 (25 25 unit PO DAILY@0800 02/24/16 01/19/21 Mcg = 1000 Iu)] EPINEPHrine [Epipen 2-Julien] 0.3 mg IM ONCE PRN 02/24/16 01/19/21 Aspirin [Adult Low Dose Aspirin EC] 81 mg PO HS@1800 05/27/20 01/19/21 Calcium Polycarbophil [Fiber-Lax] 625 mg PO DAILY@0800 05/27/20 01/19/21 Memantine [Namenda] 10 mg PO BID@08,199905/27/20 01/19/21 Sertraline HCl [Zoloft] 100 mg PO DAILY@0800 05/27/20 01/19/21 Ascorbic Acid [Vitamin C] 500 mg PO BID@08,199910/15/20 01/19/21 Ipratropium [place] [Ipratropium 2 spray EA NOSTRIL 10/15/20 01/19/21 [place] 0.03%] TID@0800,1400,1999 QUEtiapine FUMARATE [SEROquel] 25 mg PO HS PRN 10/15/20 01/19/21 Zinc 100 mg PO DAILY@0800 10/15/20 01/19/21 amLODIPine [Norvasc] 5 mg PO DAILY@0800 10/15/20 01/19/21 lisinopriL [Zestril] 2.5 mg PO DAILY@0800 10/15/20 01/19/21 Acetaminophen Tab [Tylenol Tab] 1,000 mg PO Q4-6H PRN 01/19/21 01/19/21 Amoxic-Pot Clav 875-125Mg 1 tab PO BID@08,199901/19/21 01/19/21 [Augmentin 875-125] Chlorpheniramine/Dextromethorp 1 tab PO Q6H PRN 01/19/21 01/19/21 [Coricidin Hbp Cough & Cold Tab] Docusate [Colace] 100 mg PO DAILY PRN 01/19/21 01/19/21 Famotidine [Pepcid] 20 mg PO DAILY@0800 01/19/21 01/19/21 Loratadine 10 mg PO DAILY PRN 01/19/21 01/19/21 guaiFENesin [Mucinex] 1,200 mg PO BID@0800,199901/19/21 01/19/21 Previous Rx's Medication Instructions Recorded Gabapentin [Neurontin] 400 mg PO HS@1999 #3 cap 10/19/20 Allergies Allergy/AdvReac Type Severity Reaction Status Date / Time Sulfa (Sulfonamide Allergy Rash/Hives Verified 01/19/21 16:27 Antibiotics) venom-honey bee Allergy "PASSED Verified 01/19/21 16:27 [bee venom (honey bee)] OUT" diphenhydramine HCl AdvReac Hallucinati Verified 01/19/21 16:27 [From Benadryl] ons Review of Systems ROS Statement: Those systems with pertinent positive or pertinent negative responses have been documented in the HPI. ROS Other: All systems not noted in ROS Statement are negative. Past Medical History Past Medical History: Dementia, GERD/Reflux, Hearing Disorder / Deafness, Hyperlipidemia, Hypertension, Prostate Disorder Additional Past Medical History / Comment(s): severe constipation, hx colon polyps, neuropathy, degenerative disc disease of the lumbar spine, gastroesophageal reflux disease/hiatal hernia, hyperlipidemia, osteoarthritis, memory loss, vitamin D deficiency.COVID 19 10/20. History of Any Multi-Drug Resistant Organisms: None Reported Past Surgical History: Adenoidectomy, Hernia Repair, Tonsillectomy Additional Past Surgical History / Comment(s): undescended testicle surg years ago, bilateral cataract surgery, tonsillectomy and adenoidectomy, Lion fundopl ication for hiatal hernia, epidural injection for degenerative disc disease of the lumbar spine, colonoscopy a year ago, cystoscopy . Past Anesthesia/Blood Transfusion Reactions: No Reported Reaction Past Psychological History: No Psychological Hx Reported Smoking Status: Former smoker Past Alcohol Use History: Occasional Past Drug Use History: None Reported - Past Family History Mother History Unknown: Yes Family Medical History: No Reported History Father Family Medical History: Coronary Artery Disease (CAD) Daughter(s) Family Medical History: No Reported History (Patient has 2 daughters no major medical problems.) Son(s) Family Medical History: No Reported History (Patient has 2 sons no major medical problems.) General Exam Limitations: no limitations Course Vital Signs 01/19/21 15:15 Temperature 97.9 F Pulse Rate 60 Respiratory 18 Rate Blood Pressure 156/81 O2 Sat by Pulse 96 Oximetry Medical Decision Making - Lab Data Result diagrams: 01/19/21 15:56 01/19/21 15:56 Lab Results 01/19/21 01/19/21 01/19/21 Range/Units 15:56 15:56 15:56 WBC 10.0 (3.8-10.6) k/uL RBC 4.99 (4.30-5.90) m/uL Hgb 14.7 (13.0-17.5) gm/dL Hct 45.2 (39.0-53.0) % MCV 90.7 (80.0-100.0) fL MCH 29.4 (25.0-35.0) pg MCHC 32.4 (31.0-37.0) g/dL RDW 14.9 (11.5-15.5) % Plt Count 276 (150-450) k/uL MPV 7.3 Neutrophils % 62 % Lymphocytes % 26 % Monocytes % 5 % Eosinophils % 5 % Basophils % 0 % Neutrophils # 6.2 (1.3-7.7) k/uL Lymphocytes # 2.6 (1.0-4.8) k/uL Monocytes # 0.5 (0-1.0) k/uL Eosinophils # 0.5 (0-0.7) k/uL Basophils # 0.0 (0-0.2) k/uL PT 10.5 (9.0-12.0) sec INR 1.0 (<1.2) APTT 24.6 (22.0-30.0) sec Sodium (137-145) mmol/L Potassium (3.5-5.1) mmol/L Chloride (98-107) mmol/L Carbon Dioxide (22-30) mmol/L Anion Gap mmol/L BUN (9-20) mg/dL Creatinine (0.66-1.25) mg/dL Est GFR (CKD-EPI)AfAm (>60 ml/min/1.73 sqM) Est GFR (CKD-EPI)NonAf (>60 ml/min/1.73 sqM) Glucose (74-99) mg/dL Plasma Lactic Acid Henrik (0.7-2.0) mmol/L Calcium (8.4-10.2) mg/dL Magnesium (1.6-2.3) mg/dL Total Bilirubin (0.2-1.3) mg/dL AST (17-59) U/L ALT (4-49) U/L Alkaline Phosphatase (38-126) U/L Total Protein (6.3-8.2) g/dL Albumin (3.5-5.0) g/dL Urine Color Yellow Urine Appearance Turbid (Clear) Urine pH 5.5 (5.0-8.0) Ur Specific [place] 1.034 (1.001-1.035) Urine Protein 1+ H (Negative) Urine Glucose (UA) Negative (Negative) Urine Ketones Trace H (Negative) Urine Blood Moderate H (Negative) Urine Nitrite Negative (Negative) Urine Bilirubin Negative (Negative) Urine Urobilinogen 2.0 (<2.0) mg/dL Ur Leukocyte Esterase Moderate H (Negative) Urine RBC 33 H (0-5) /hpf Urine WBC 56 H (0-5) /hpf Ur Squamous Epith Cells 1 (0-4) /hpf Urine Bacteria Rare H (None) /hpf Urine Mucus Many H (None) /hpf Urine Yeast (Budding) Occasional H (None) /hpf 01/19/21 01/19/21 Range/Units 15:56 15:56 WBC (3.8-10.6) k/uL RBC (4.30-5.90) m/uL Hgb (13.0-17.5) gm/dL Hct (39.0-53.0) % MCV (80.0-100.0) fL MCH (25.0-35.0) pg MCHC (31.0-37.0) g/dL RDW (11.5-15.5) % Plt Count (150-450) k/uL MPV Neutrophils % % Lymphocytes % % Monocytes % % Eosinophils % % Basophils % % Neutrophils # (1.3-7.7) k/uL Lymphocytes # (1.0-4.8) k/uL Monocytes # (0-1.0) k/uL Eosinophils # (0-0.7) k/uL Basophils # (0-0.2) k/uL PT (9.0-12.0) sec INR (<1.2) APTT (22.0-30.0) sec Sodium 139 (137-145) mmol/L Potassium 4.1 (3.5-5.1) mmol/L Chloride 105 (98-107) mmol/L Carbon Dioxide 25 (22-30) mmol/L Anion Gap 9 mmol/L BUN 17 (9-20) mg/dL Creatinine 0.84 (0.66-1.25) mg/dL Est GFR (CKD-EPI)AfAm >90 (>60 ml/min/1.73 sqM) Est GFR (CKD-EPI)NonAf 79 (>60 ml/min/1.73 sqM) Glucose 81 (74-99) mg/dL Plasma Lactic Acid Henrik 1.0 (0.7-2.0) mmol/L Calcium 9.2 (8.4-10.2) mg/dL Magnesium 1.8 (1.6-2.3) mg/dL Total Bilirubin 0.5 (0.2-1.3) mg/dL AST 34 (17-59) U/L ALT 17 (4-49) U/L Alkaline Phosphatase 113 (38-126) U/L Total Protein 7.1 (6.3-8.2) g/dL Albumin 4.1 (3.5-5.0) g/dL Urine Color Urine Appearance (Clear) Urine pH (5.0-8.0) Ur Specific [place] (1.001-1.035) Urine Protein (Negative) Urine Glucose (UA) (Negative) Urine Ketones (Negative) Urine Blood (Negative) Urine Nitrite (Negative) Urine Bilirubin (Negative) Urine Urobilinogen (<2.0) mg/dL Ur Leukocyte Esterase (Negative) Urine RBC (0-5) /hpf Urine WBC (0-5) /hpf Ur Squamous Epith Cells (0-4) /hpf Urine Bacteria (None) /hpf Urine Mucus (None) /hpf Urine Yeast (Budding) (None) /hpf Disposition Clinical Impression: Altered mental status Disposition: ADMITTED IP TO THIS HOSP Condition: Fair Referrals: David Jimenez MD [Primary Care Provider] - 1-2 days Decision Time: 18:35
[2021-01-19 16:15] LABS: Basophils % (A) 0 %; Eosinophils # (A) 0.5 k/uL (0-0.7); Eosinophils % (A) 5 %; HCT 45.2 % (39.0-53.0); HGB 14.7 gm/dL (13.0-17.5); Lymphocytes # (A) 2.6 k/uL (1.0-4.8); Lymphocytes % (A) 26 %; MCH 29.4 pg (25.0-35.0); MCHC 32.4 g/dL (31.0-37.0); MCV 90.7 fL (80.0-100.0); Mean Platelet Volume 7.3; Monocytes # (A) 0.5 k/uL (0-1.0); Monocytes % (A) 5 %; Neutrophils # (A) 6.2 k/uL (1.3-7.7); Neutrophils % (A) 62 %; Platelet Count 276 k/uL (150-450); RBC 4.99 m/uL (4.30-5.90); RDW 14.9 % (11.5-15.5)
[2021-01-19 16:20] LABS: ALT 17 U/L (4-49); AST 34 U/L (17-59); African American GFR (CKD) >90 (>60 ml/min/1.73 sqM); Albumin 4.1 g/dL (3.5-5.0); Alkaline Phosphatase 113 U/L (38-126); Anion Gap 9 mmol/L; Blood Urea Nitrogen 17 mg/dL (9-20); Calcium 9.2 mg/dL (8.4-10.2); Carbon Dioxide 25 mmol/L (22-30); Chloride 105 mmol/L (98-107); Glucose 81 mg/dL (74-99); Magnesium 1.8 mg/dL (1.6-2.3); Non-African American GFR(CKD) 79 (>60 ml/min/1.73 sqM); Potassium 4.1 mmol/L (3.5-5.1); Sodium 139 mmol/L (137-145); Total Bilirubin 0.5 mg/dL (0.2-1.3); Total Protein 7.1 g/dL (6.3-8.2)
[2021-01-19 16:21] LABS: Partial Thromboplastin Time 24.6 sec (22.0-30.0); Prothrombin Time 10.5 sec (9.0-12.0)
[2021-01-19 16:25] LABS: Appearance,Urine Turbid (Clear); Bacteria,Urine Rare /hpf; Bilirubin,Urine Negative (Negative); Blood,Urine Moderate (Negative); Budding Yeast,Urine Occasional /hpf; Color,Urine Yellow; Glucose,Urine (UA) Negative (Negative); Ketones,Urine Trace (Negative); Leukocyte Esterase,Urine Moderate (Negative); Mucus,Urine Many /hpf; Nitrite,Urine Negative (Negative); PH, Urine 5.5 (5.0-8.0); Protein,Urine 1+ (Negative); RBC,Urine 33 /hpf (0-5); Specific Gravity,Urine 1.034 (1.001-1.035); Squamous Epithelial Cell,Urine 1 /hpf (0-4); WBC,Urine 56 /hpf (0-5)
--- NOTE | 2021-01-19 17:29 | CT ---
EXAMINATION TYPE: CT brain wo con DATE OF EXAM: 01/19/2021 HISTORY: Confusion and UTI per patient family.. CT DLP: 1173.4 mGycm. Automated Exposure Control for Dose Reduction was Utilized. TECHNIQUE: CT scan of the head is performed without contrast. COMPARISON: None FINDINGS: There is moderate generalized volume loss. Patchy white matter hypodensities likely sequela of chroni c microvascular ischemic change. There is loss of ricks-white differentiation and hypodensity of the r ight parietal lobe. There is no acute intracranial hemorrhage, midline shift, or mass effect identified The ventricles, sulci, and cisterns are prominent concordant with generalized volume loss. No abnormal extra-axial fluid collection. Bones and extracranial soft tissues are intact. Visualized sinuses and mastoid air cells are clear. IMPRESSION: 1. Hypodensity of the right parietal lobe may represent age-indeterminate infarction. If there is cli nical concern for acute infarction recommended MRI brain follow-up. 2. No acute intracranial hemorrhage, midline shift, or mass effect. Dr. Jelena More discussed findings with Dr. Silvestre Mena via the phone on 01/19/2021 at 5:25 PM, and results were acknowledged.
[2021-01-19] MEDS ORDERED: NALOXONE 0.4 MG/ML 1 ML VIAL IV PRN (18:31)
[2021-01-19] MEDS ORDERED: ACETAMINOPHEN TAB 325 MG TAB PO PRN (18:31)
[2021-01-19] MEDS ORDERED: ASPIRIN 81 MG PO STA (18:34)
[2021-01-19] MEDS ORDERED: CARBAMIDE PEROXIDE 6.5% DROPS 15 ML BTL BOTH EARS STA (18:46)
[2021-01-19] MEDS: SODIUM CHLORIDE 0.9% 1,000 ML IV SCH (19:02)
[2021-01-19] MEDS: AMOXIC-POT CLAV 875-125MG 1 EACH TAB PO SCH (22:39)
[2021-01-20] MEDS ORDERED: QUEtiapine 25 MG TAB PO PRN (02:20)
[2021-01-20] MEDS ORDERED: amLODIPine 5 MG TAB PO SCH (08:00)
--- NOTE | 2021-01-20 08:00 | US ---
EXAMINATION TYPE: US carotid duplex BILAT DATE OF EXAM: 01/20/2021 COMPARISON: NONE CLINICAL HISTORY: 85-year-old male CVA. TECHNIQUE: Carotid duplex ultrasound examination. Indirect Doppler criteria was utilized. FINDINGS: EXAM MEASUREMENTS: RIGHT: Peak Systolic Velocity (PSV) cm/sec ----- Right CCA: 62.2 ----- Right ICA: 80.2 ----- Right ECA: 89.2 ICA/CCA ratio: 1.3 RIGHT: End Diastole cm/sec ----- Right CCA: 8.4 ----- Right ICA: 13.4 ----- Right ECA: 11.3 LEFT: Peak Systolic Velocity (PSV) cm/sec ----- Left CCA: 79.3 ----- Left ICA: 124.8 ----- Left ECA: 148.8 ICA/CCA ratio: 1.6 LEFT: End Diastole cm/sec ----- Left CCA: 10.7 ----- Left ICA: 22.9 ----- Left ECA: 8.5 VERTEBRALS (direction of flow): Right Vertebral: Antegrade Left Vertebral: Antegrade Rhythm: Arrhythmia Lumber Stacker notes: No elevated velocities, no significant stenosis. Grayscale images show mild atherosclerotic change of the right bifurcation and moderate at the left b ifurcation. IMPRESSION: Atherosclerotic change at the bifurcations. No hemodynamically significant internal carotid artery st enosis on either side. Criteria for Assigning % of Stenosis / Diameter reduction (Estimation based on the indirect measurements of the internal carotid artery velocities (ICA PSV). 1. Normal (no stenosis)=ICA PSV < 125 cm/s: ratio < 2.0: ICA EDV<40 cm/s. 2. Less than 50% stenosis=ICA PSV < 125 cm/s: ratio < 2.0: ICA EDV<40 cm/s. 3. 50 to 69% stenosis=ICA PSV of 125 to 230 cm/s: ration 2.0 ? 4.0: ICA EDV 40-100 cm/s. 4. Greater than 70% stenosis to near occlusion= ICA PSV > 230 cm/s: ratio > 4.0: ICA EDV > 100 cm/s. 5. Near occlusion= ICA PSV velocities may be low or undetectable: variable ratio and ICA EDV. 6. Total occlusion=unable to detect flow.
[2021-01-20] MEDS: HEPARIN SODIUM,PORCINE/PF 5,000 UNIT/0.5 ML SYRINGE SQ SCH ×2 (08:51→18:29)
[2021-01-20] MEDS: MEMANTINE 10 MG TAB PO SCH ×2 (08:51→20:33)
[2021-01-20] MEDS: AMOXIC-POT CLAV 875-125MG 1 EACH TAB PO SCH (08:51)
[2021-01-20] MEDS ORDERED: HALOPERIDOL LACTATE 5 MG/ML 1 ML VIAL IM PRN (10:07)
[2021-01-20] MEDS ORDERED: OLANZapine 2.5 MG TAB PO PRN (10:44)
[2021-01-20] MEDS ORDERED: DOCUSATE 100 MG CAP PO PRN (10:50)
--- NOTE | 2021-01-20 11:00 | P.PN ---
Subjective Progress Note Date: 01/20/21 Patient was seen and evaluated by me in the ER. He appeared agitated and was asking to leave the hospital. At some point. Start his IV. Patient is very hard of hearing and was unable to read my lips. His family took his hearing aids home. We tried to write down questions on a piece of paper but patient would not answer questions appropriately. He has a history of underlying dementia with behavioral disturbances. Objective - Vital Signs Vital signs: Vital Signs Temp 98.4 F 01/20/21 06:55 Pulse 76 01/20/21 08:50 Resp 20 01/20/21 06:55 BP 185/92 01/20/21 08:50 Pulse Ox 98 01/20/21 06:55 Intake & Output 01/19/21 01/20/21 01/20/21 18:59 06:59 18:59 Weight 69.4 kg - Exam General: The patient is awake and alert, in no distress Eye: there is normal conjunctiva bilaterally. Neck: The neck is supple, there is no JVD. Cardiovascular: Normal S1-S2, no S3-S4, no murmurs. Respiratory: Lungs clear to auscultation bilaterally Gastrointestinal: Abdomen is soft, nontender Musculoskeletal: There is no pedal edema. Neurological:. Speech is normal. Skin: Skin is warm and dry - Labs CBC & Chem 7: 01/19/21 15:56 01/19/21 15:56 Labs: Abnormal Lab Results - Last 24 Hours (Table) 01/19/21 Range/Units 15:56 Urine Protein 1+ H (Negative) Urine Ketones Trace H (Negative) Urine Blood Moderate H (Negative) Ur Leukocyte Esterase Moderate H (Negative) Urine RBC 33 H (0-5) /hpf Urine WBC 56 H (0-5) /hpf Urine Bacteria Rare H (None) /hpf Urine Mucus Many H (None) /hpf Urine Yeast (Budding) Occasional H (None) /hpf Microbiology - Last 24 Hours (Table) 01/19/21 15:56 Urine Culture - Preliminary Urine,Clean Catch Assessment and Plan Assessment: This is a 85-year-old male with past medical history noted below significant for underlying dementia with behavioral disturbances who presented to the ER from a local residential facility with altered mental status and confusion. Patient was evaluated in the ER and admitted to the hospital for further management of his medical problems noted below. 1. Suspected subacute infarct involving the right parietal lobe noted on computed tomography scan of the brain. Awaiting neurology evaluation. Carotid Doppler showed no hemodynamically significant stenosis. Patient maintained on aspirin and Lipitor. 2. Underlying dementia with behavioral disturbances, patient was given one-time dose of Haldol in the emergency room. I would order Zyprexa 2.5 mg twice daily as needed. 3. Catheter associated UTI, patient is being treated with antibiotic at the intermediate with nitrofurantoin pain and Augmentin. I would continue IV ceftriaxone awaiting urine culture. Urinalysis is not very impressive year as hit is traumatic with microscopic hematuria 4. Essential hypertension, blood pressure not well controlled. Increase amlodipine dose to 5 mg twice daily. 5. Chronic medical problems: Hyperlipidemia, BPH, advanced dementia 6. DVT prophylaxis with subcu heparin
--- NOTE | 2021-01-20 13:00 | ECHOF ---
Referral Reason:CVA MEASUREMENTS -------- HEIGHT: 167.6 cm WEIGHT: 69.4 kg BP: 178/88 IVSd: 1.1 cm (0.6 - 1.1) LVIDd: 3.5 cm (3.9 - 5.3) LVPWd: 1.1 cm (0.6 - 1.1) IVSs: 1.6 cm LVIDs: 2.2 cm LVPWs: 1.5 cm MV E Winston: 0.50 m/s MV DecT: 379 ms MV A Winston: 1.07 m/s MV E/A Ratio: 0.47 AV maxP.39 mmHg AV meanP.81 mmHg FINDINGS -------- Sinus rhythm. This was a technically difficult study with suboptimal views. The left ventricular size is normal. There is borderline concentric left ventricular hypertrophy. Overall left ventricular systolic function is normal with, an EF between 60 - 65 %. The RV was not well visualized. The left atrium was not well visualized. The right atrium was not well visualized. 5 ml of Lumason was utilized for enhancement of images. The aortic valve was not well visualized. There is mild aortic valve sclerosis. Peak/mean gradien t across the Aortic Valve is 14.39mmHg / 7.81mmHg. The mitral valve was not well visualized. The tricuspid valve was not well visualized. The pulmonic valve was not well visualized. IVC Not well visulized. There is no pericardial effusion. CONCLUSIONS -------- 1. This was a technically difficult study with suboptimal views. 2. The left ventricular size is normal. 3. There is borderline concentric left ventricular hypertrophy. 4. Overall left ventricular systolic function is normal with, an EF between 60 - 65 %. 5. 5 ml of Lumason was utilized for enhancement of images. 6. There is mild aortic valve sclerosis. 7. Peak/mean gradient across the Aortic Valve is 14.39mmHg / 7.81mmHg. 8. There is no pericardial effusion. [employer] OPERATOR: Darlene Rosenberg [facility]
--- NOTE | 2021-01-20 14:25 | P.HPIM ---
History of Present Illness H&P Date: 01/19/21 The patient is an 85 yo M with a PMH of dementia, indwelling Bryan, hyperlipidemia, and hypertension resident of an assisted living facility who was brought into the emergency room for worsening mental status. The history is obtained from the emergency room physician and the RN since patient was confused and unable to provide any meaningful history. He was also extremely hard of hearing and uses hearing aides which he didn't have on him at the time. Patient was reportedly noted to be more weak and confused over the past few days. He had completed a 5 day course of Macrobid at the assisted living facility 3 days ago and was subsequently started on Augmentin. The patient reported no active c omplaints. He noted that he is fine and asked when he could leave back to his apartment. In the emergency room, a CT brain revealed a hypodensity of the right parietal lobe representing an age-indeterminate infarction with no hemorrhage, midline shift, or mass effect noted. EKG revealed sinus bradycardia at [address]/T-wave changes noted as reviewed by me. Review of Systems ROS unobtainable: due to mental status Past Medical History Past Medical History: Dementia, GERD/Reflux, Hearing Disorder / Deafness, Hyperlipidemia, Hypertension, Prostate Disorder Additional Past Medical History / Comment(s): severe constipation, hx colon polyps, neuropathy, degenerative disc disease of the lumbar spine, gastroesophageal reflux disease/hiatal hernia, hyperlipidemia, osteoarthritis, memory loss, vitamin D deficiency.COVID 19 10/20. History of Any Multi-Drug Resistant Organisms: None Reported Past Surgical History: Adenoidectomy, Hernia Repair, Tonsillectomy Additional Past Surgical History / Comment(s): undescended testicle surg years ago, bilateral cataract surgery, tonsillectomy and adenoidectomy, Lion fundoplication for hiatal hernia, epidural injection for degenerative disc disease of the lumbar spine, colonoscopy a year ago, cystoscopy . Past Anesthesia/Blood Transfusion Reactions: No Reported Reaction Past Psychological History: No Psychological Hx Reported Smoking Status: Former smoker Past Alcohol Use History: Occasional Past Drug Use History: None Reported - Past Family History Mother History Unknown: Yes Family Medical History: No Reported History Father Family Medical History: Coronary Artery Disease (CAD) Daughter(s) Family Medical History: No Reported History (Patient has 2 daughters no major medical problems.) Son(s) Family Medical History: No Reported History (Patient has 2 sons no major medical problems.) Medications and Allergies Home Medications Medication Instructions Recorded Confirmed Type Atorvastatin [Lipitor] 40 mg PO HS@2200 05/01/15 01/19/21 History Cholecalciferol [Vitamin D3 (25 25 unit PO DAILY@0800 02/24/16 01/19/21 History Mcg = 1000 Iu)] EPINEPHrine [Epipen 2-Julien] 0.3 mg IM ONCE PRN 02/24/16 01/19/21 History Aspirin [Adult Low Dose Aspirin EC] 81 mg PO HS@1800 05/27/20 01/19/21 History Calcium Polycarbophil [Fiber-Lax] 625 mg PO DAILY@00 05/27/20 01/19/21 History Memantine [Namenda] 10 mg PO BID@0800,199905/27/20 01/19/21 History Sertraline HCl [Zoloft] 100 mg PO DAILY@0800 05/27/20 01/19/21 History Ascorbic Acid [Vitamin C] 500 mg PO BID@08,199910/15/20 01/19/21 History Ipratropium [place] [Ipratropium 2 spray EA NOSTRIL 10/15/20 01/19/21 History [place] 0.03%] TID@0800,1399,1999 QUEtiapine FUMARATE [SEROquel] 25 mg PO HS PRN 10/15/20 01/19/21 History Zinc 100 mg PO DAILY@0800 10/15/20 01/19/21 History amLODIPine [Norvasc] 5 mg PO DAILY@0810/15/20 01/19/21 History lisinopriL [Zestril] 2.5 mg PO DAILY@0810/15/20 01/19/21 History Gabapentin [Neurontin] 400 mg PO HS@1999 #3 cap 10/19/20 01/19/21 Rx Acetaminophen Tab [Tylenol Tab] 1,000 mg PO Q4-6H PRN 01/19/21 01/19/21 History Amoxic-Pot Clav 875-125Mg 1 tab PO BID@0800,199901/19/21 01/19/21 History [Augmentin 875-125] Chlorpheniramine/Dextromethorp 1 tab PO Q6H PRN 01/19/21 01/19/21 History [Coricidin Hbp Cough & Cold Tab] Docusate [Colace] 100 mg PO DAILY PRN 01/19/21 01/19/21 History Famotidine [Pepcid] 20 mg PO DAILY@0800 01/19/21 01/19/21 History Loratadine 10 mg PO DAILY PRN 01/19/21 01/19/21 History guaiFENesin [Mucinex] 1,200 mg PO BID@08,199901/19/21 01/19/21 History Allergies Allergy/AdvReac Type Severity Reaction Status Date / Time Sulfa (Sulfonamide Allergy Rash/Hives Verified 01/19/21 16:27 Antibiotics) venom-honey bee Allergy "PASSED Verified 01/19/21 16:27 [bee venom (honey bee)] OUT" diphenhydramine HCl AdvReac Hallucinati Verified 01/19/21 16:27 [From Benadryl] ons Physical Exam Vitals: Vital Signs Temp Pulse Resp BP Pulse Ox 01/19/21 15:15 97.9 F 60 18 156/81 96 Intake and Output 01/19/21 01/19/21 01/19/21 06:59 14:59 22:59 Other: Weight 69.4 kg General: non toxic, no distress, appears at stated age, overweight Derm: no unusual rashes/lesions no unusual ecchymoses, warm, dry Head: atraumatic, normocephalic, symmetric Eyes: EOMI, no lid lag, anicteric sclera, pupils equal round reactive to light ENT: Nose and ears atraumatic, no thrush, no pharyngeal erythema Neck: No thyromegaly, no cervical lymphadenopathy, trachea midline, supple Mouth: no lip lesion, mucus membranes moist Cardiovascular: S1S2 reg, no murmur, positive posterior tibial pulse bilateral, no edema, capillary refill less than 2 seconds Lungs: CTA bilateral, no rhonchi, no rales , no accessory muscle use Abdominal: soft, nontender to palpation, no guarding, no appreciable organomegaly, normal bowel sounds Ext: no gross muscle atrophy, muscle strength 5 out of 5 in all 4 extremities grossly, no contractures, Neuro: CN II-XI grossly intact, light touch intact all 4 extremities, no gross focal deficits noted Psych: Confused, oriented only to self Results CBC & Chem 7: 01/19/21 15:56 01/19/21 15:56 Labs: Abnormal Lab Results - Last 24 Hours (Table) 01/19/21 Range/Units 15:56 Urine Protein 1+ H (Negative) Urine Ketones Trace H (Negative) Urine Blood Moderate H (Negative) Ur Leukocyte Esterase Moderate H (Negative) Urine RBC 33 H (0-5) /hpf Urine WBC 56 H (0-5) /hpf Urine Bacteria Rare H (None) /hpf Urine Mucus Many H (None) /hpf Urine Yeast (Budding) Occasional H (None) /hpf Assessment and Plan Plan: Subacute CVA -Neurology consult -Neurochecks -C/w Aspirin -Fall and aspiration precautions -OSS ARCHITECT evaluation -Echo, carotid doppler Recent UTI -C/w Augmentin Chronic conditions: Hypertension, hyperlipidemia, dementia -Continue with home meds DVT prophylaxis -Heparin subq The patient is admitted with an anticipated greater than 2 midnight stay for evaluation of subacute CVA CODE STATUS: Full Code Discussed with: Patient, RN Anticipated discharge date: 2-[address]: Home A total of 35 minutes was spent on the care of this complex patient more than 50% of the time was spent in counseling and care coordination.
[2021-01-20] MEDS ORDERED: ASPIRIN 81 MG PO SCH (18:00)
--- NOTE | 2021-01-20 19:05 | P.CNNES ---
History of Present Illness Consult date: 01/20/21 Requesting physician: Silvestre Mena Reason for Consult: Subacute stroke on CT History of Present Illness: Patient is a 85-year-old male came to the hospital yesterday at 3:06 PM for altered mental status, concerns of development of sepsis. Patient has history of dementia and at baseline has chronic mental confusion. Over the last couple days he has been seemingly weak and more confused. Patient is almost hearing- impaired. Patient's son took away his hearing aids to home, therefore no effective communication could be performed with the patient. Per sitter in the nursing report, patient has been confused, aggressive, has tried to drip IV lines, and then the sitter tried to hold his arm, he has tried to kick and swing on the nurses and the sitters. He just wants to go home. He is confused, they came the sitter is his daughter. Patient keeps on repeating "I want to go home". Vital signs on arrival blood pressure 156/81, pulse rate 60, temperature 97.9. CT head showed hypodensity of the right parietal lobe, may represent aged indeterminate infarction. If there is clinical concern for acute infarction, recommend MRI brain follow-up. No acute hemorrhage. EKG shows sinus bradycardia. Carotid Doppler showed atherosclerotic change at the bifurcation. No hemodynamically significant internal carotid artery stenosis on either side. Findings are essentially stable. L2 level degenerative disc disease, spondylolisthesis L4-L5, multilevel facet arthropathy. Spinal stenosis most notably at L4-5, reported mild in degree. Her blood test shows normal CBC, PT/PTT, CMP. UA showed moderate leukocyte esterase, 56 WBC and rare bacteria. Urine culture is pending. Patient has been started on Rocephin. Patient at home on Lipitor 40 mg, vitamin D, Zoloft 100 mg, Namenda 10 mg twice a day, aspirin 81 mg, Seroquel 25 mg at bedtime, amlodipine 5 mg, lisinopril 2.5 mg, gabapentin 400 mg at bedtime, Pepcid 20 mg daily. I spoke to patient's son on the phone. He informed me that patient suffered from Covid in September 2020. He was placed on Xarelto at the time which continued for about 1-1/2 months and then was discontinued. Patient has been living in this assisted living for last 1 year. He usually walks with a walker although sometimes may walk without walker. Patient has been acting different in the last week or so. He was "out of sorts", more confused. He has decreased appetite. His words do not match up what he said. He does have dementia, which seems to be getting worse with time. His son was not sure if this recent worsening was related to dementia or something else. Patient's son states that it is "not horrible", and he is confused frequently. He also mentions that patient has cerumen impaction in both ears. Review of Systems Due to hearing impairment. ROS unobtainable: due to mental status Past Medical History Past Medical History: Dementia, GERD/Reflux, Hearing Disorder / Deafness, Hyperlipidemia, Hypertension, Prostate Disorder Additional Past Medical History / Comment(s): severe constipation, hx colon polyps, neuropathy, degenerative disc disease of the lumbar spine, gastroesophageal reflux disease/hiatal hernia, hyperlipidemia, osteoarthritis, memory loss, vitamin D deficiency.COVID 19 10/20. History of Any Multi-Drug Resistant Organisms: None Reported Past Surgical History: Adenoidectomy, Hernia Repair, Tonsillectomy Additional Past Surgical History / Comment(s): undescended testicle surg years ago, bilateral cataract surgery, tonsillectomy and adenoidectomy, Lion fundoplication for hiatal hernia, epidural injection for degenerative disc disease of the lumbar spine, colonoscopy a year ago, cystoscopy . Past Anesthesia/Blood Transfusion Reactions: No Reported Reaction Past Psychological History: No Psychological Hx Reported Smoking Status: Former smoker Past Alcohol Use History: Occasional Past Drug Use History: None Reported - Past Family History Mother History Unknown: Yes Family Medical History: No Reported History Father Family Medical History: Coronary Artery Disease (CAD) Daughter(s) Family Medical History: No Reported History (Patient has 2 daughters no major m edical problems.) Son(s) Family Medical History: No Reported History (Patient has 2 sons no major medical problems.) Medications and Allergies Home Medications Medication Instructions Recorded Confirmed Type Atorvastatin [Lipitor] 40 mg PO HS@2200 05/01/15 01/19/21 History Cholecalciferol [Vitamin D3 (25 25 unit PO DAILY@0800 02/24/16 01/19/21 History Mcg = 1000 Iu)] EPINEPHrine [Epipen 2-Julien] 0.3 mg IM ONCE PRN 02/24/16 01/19/21 History Aspirin [Adult Low Dose Aspirin EC] 81 mg PO HS@1800 05/27/20 01/19/21 History Calcium Polycarbophil [Fiber-Lax] 625 mg PO DAILY@79905/27/20 01/19/21 History Memantine [Namenda] 10 mg PO BID@799,199905/27/20 01/19/21 History Sertraline HCl [Zoloft] 100 mg PO DAILY@79905/27/20 01/19/21 History Ascorbic Acid [Vitamin C] 500 mg PO BID@799,199910/15/20 01/19/21 History Ipratropium [place] [Ipratropium 2 spray EA NOSTRIL 10/15/20 01/19/21 History [place] 0.03%] TID@0800,1399,1999 QUEtiapine FUMARATE [SEROquel] 25 mg PO HS PRN 10/15/20 01/19/21 History Zinc 100 mg PO DAILY@79910/15/20 01/19/21 History amLODIPine [Norvasc] 5 mg PO DAILY@79910/15/20 01/19/21 History lisinopriL [Zestril] 2.5 mg PO DAILY@79910/15/20 01/19/21 History Gabapentin [Neurontin] 400 mg PO HS@1999 #3 cap 10/19/20 01/19/21 Rx Acetaminophen Tab [Tylenol Tab] 1,000 mg PO Q4-6H PRN 01/19/21 01/19/21 History Amoxic-Pot Clav 875-125Mg 1 tab PO BID@01/19/21 01/19/21 History [Augmentin 875-125] Chlorpheniramine/Dextromethorp 1 tab PO Q6H PRN 01/19/21 01/19/21 History [Coricidin Hbp Cough & Cold Tab] Docusate [Colace] 100 mg PO DAILY PRN 01/19/21 01/19/21 History Famotidine [Pepcid] 20 mg PO DAILY@0800 01/19/21 01/19/21 History Loratadine 10 mg PO DAILY PRN 01/19/21 01/19/21 History guaiFENesin [Mucinex] 1,200 mg PO BID@0800,199901/19/21 01/19/21 History Allergies Allergy/AdvReac Type Severity Reaction Status Date / Time Sulfa (Sulfonamide Allergy Rash/Hives Verified 01/19/21 16:27 Antibiotics) venom-honey bee Allergy "PASSED Verified 01/19/21 16:27 [bee venom (honey bee)] OUT" diphenhydramine HCl AdvReac Hallucinati Verified 01/19/21 16:27 [From Benadryl] ons Physical Examination - Vital Signs Vital Signs: Vital Signs Temp Pulse Resp BP Pulse Ox 01/20/21 08:50 76 185/92 01/20/21 06:55 98.4 F 84 20 178/88 98 01/20/21 06:00 81 18 150/86 97 01/20/21 05:00 78 20 141/78 97 01/20/21 04:00 81 20 174/80 97 01/20/21 03:34 67 20 175/94 98 01/20/21 02:01 98.2 F 64 16 158/88 97 01/19/21 22:38 64 16 174/88 97 01/19/21 15:15 97.9 F 60 18 156/81 96 Intake and Output 01/19/21 01/20/21 01/20/21 22:59 06:59 14:59 Other: Weight 69.4 kg On examination patient is an elderly male, who is laying comfortably in the bed. Patient is alert and awake. Patient is almost completely hearing- impaired without his hearing aids. Was not able to understand any single word. Patient did not cooperate well. Speech appears clear what ever he stated. No obvious aphasia or dysarthria. Patient has strongly positive palmomental reflex. Face is symmetric, tongue protrudes to the midline. Pupils are round and reacting. Extraocular muscles are intact. Visual phelan could not be tested. Facial sensations and shoulders could not be tested. On muscle strength testing there is no pronator drift. Patient's planning official is equal. Left biceps appears slightly weaker than the right. Patient did not cooperate for testing of the lower extremities. Tone is equal in both arms. Patient has a retained Foleys. Patient's reflexes are 1 in the upper limbs, 2 at the right knee, 1 on the left. Plantars are upgoing. He has baseline toes pointing upwards, which further goes up with plantar stimulation. Gait cannot be tested. Sensations or cerebellar functions could not be tested. On general examination there is no obvious bruit, S1 and S2 audible. Results - Laboratory Findings CBC and BMP: 01/19/21 15:56 01/19/21 15:56 Abnormal Lab Findings: Abnormal Labs 01/19/21 15:56 Urine Protein 1+ H Urine Ketones Trace H Urine Blood Moderate H Ur Leukocyte Esterase Moderate H Urine RBC 33 H Urine WBC 56 H Urine Bacteria Rare H Urine Mucus Many H Urine Yeast (Budding) Occasional H Assessment and Plan Assessment: * 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 Patient does have mild weakness in the left arm noted on examination. Exam was very limited because of patient's severe hearing impairment, dementia and noncooperation. * Recent Covid-19 infection in September 2020. * Cerumen impaction bilaterally ears, left more than right * Hypertension * Dementia * Very hard of hearing. Plan: * Patient had a stroke while being on aspirin. We will switch from aspirin to Plavix 75 mg daily. * Carotid Doppler showed atherosclerotic change at the bifurcation. No hemodynamically significant stenosis of either ICA. * 2-D echo showed suboptimal views. Borderline concentric LVH. EF is 60-65%. Mild aortic valve sclerosis. * Fasting lipid panel, hemoglobin A1c. We will also check B12, folate, TSH and RPR. * Patient's son also wanted to have his ears disimpacted of the wax. Would defer to IM. May need ENT. * We will follow.
[2021-01-20] MEDS ORDERED: GABAPENTIN 400 MG CAP PO SCH (20:00)
[2021-01-20] MEDS: amLODIPine 5 MG TAB PO SCH (20:33)
[2021-01-20] MEDS: ATORVASTATIN 40 MG TAB PO SCH (20:33)
[2021-01-20] MEDS: CLOPIDOGREL 75 MG TAB PO SCH (20:33)
[2021-01-21 00:34] LABS: Hemoglobin A1C 5.4 % (4.0-6.0)
[2021-01-21] MEDS: HEPARIN SODIUM,PORCINE/PF 5,000 UNIT/0.5 ML SYRINGE SQ SCH ×4 (00:47→23:46)
[2021-01-21] MEDS: SODIUM CHLORIDE 0.9% 1,000 ML IV SCH ×5 (01:03→23:46)
[2021-01-21] MEDS ORDERED: ATROPINE SULFATE 0.1 MG/ML 10ML SYRINGE ONE (03:16)
[2021-01-21 03:29] LABS: Glucose,Whole Blood 133 mg/dL (75-99)
[2021-01-21] MEDS ORDERED: CEFEPIME 2 GM in SODIUM CHLORIDE 0.9% 100 ML IVPB STA (03:39)
[2021-01-21] MEDS ORDERED: VANCOMYCIN IV PER PHARMACY 1 EACH MISC MISCELLANE PRN (03:39)
[2021-01-21] MEDS ORDERED: VANCOMYCIN 1,250 MG in SODIUM CHLORIDE 0.9% 250 ML IVPB ONE (03:45)
[2021-01-21 03:50] LABS: ABG Base Excess -5.5 mmol/L; ABG HCO3 20 mmol/L (21-25); ABG Oxygen Saturation 97.9 % (94-97); ABG PCO2 34 mmHg (35-45); ABG PH 7.38 (7.35-7.45); ABG PO2 102 mmHg (83-108); ABG TCO2 21 mmol/L (19-24); Allen Test Performed? Yes
[2021-01-21 04:13] LABS: Basophils # (A) 0.1 k/uL (0-0.2); Basophils % (A) 0 %; Eosinophils # (A) 0.7 k/uL (0-0.7); Eosinophils % (A) 5 %; HCT 40.7 % (39.0-53.0); Lymphocytes % (A) 24 %; MCH 31.5 pg (25.0-35.0); MCHC 34.3 g/dL (31.0-37.0); MCV 91.6 fL (80.0-100.0); Mean Platelet Volume 7.1; Monocytes # (A) 0.8 k/uL (0-1.0); Monocytes % (A) 7 %; Neutrophils # (A) 7.8 k/uL (1.3-7.7); Neutrophils % (A) 62 %; Platelet Count 297 k/uL (150-450); RBC 4.44 m/uL (4.30-5.90); RDW 14.3 % (11.5-15.5); WBC 12.6 k/uL (3.8-10.6)
[2021-01-21 04:26] LABS: Albumin 3.5 g/dL (3.5-5.0); Calcium 8.8 mg/dL (8.4-10.2); Magnesium 1.8 mg/dL (1.6-2.3); Potassium 4.3 mmol/L (3.5-5.1); Total Bilirubin 0.7 mg/dL (0.2-1.3); Total Protein 6.3 g/dL (6.3-8.2)
--- NOTE | 2021-01-21 04:30 | XR ---
EXAM: XR Chest, 1 View CLINICAL HISTORY: ITS.REASON XR Reason: SOB, Congestion TECHNIQUE: Frontal view of the chest. COMPARISON: No relevant prior studies available. FINDINGS: Lungs: Unremarkable. No consolidation. Pleural space: Unremarkable. No pneumothorax. Heart: Unremarkable. No cardiomegaly. Mediastinum: Unremarkable. Bones/joints: Unremarkable. IMPRESSION: No acute pulmonary process
[2021-01-21 04:51] LABS: Glucose,Whole Blood 126 mg/dL (75-99)
[2021-01-21] MEDS ORDERED: NOREPINEPHRIN 4 MG-0.9% NS PMX 4 MG/250 ML ML IV ONE (04:51)
[2021-01-21] MEDS ORDERED: DOPamine DRIP 800 MG in DEXTROSE/WATER 1 250ML.BAG IV SCH (05:30)
[2021-01-21 05:37] LABS: Cholesterol 110 mg/dL (<200); HDL Cholesterol 35 mg/dL (40-60); LDL Cholesterol,Calculated 57 mg/dL (0-99); Triglycerides 90 mg/dL (<150)
--- NOTE | 2021-01-21 05:40 | P.EN ---
A team note Activated at 3:15 am. The patient was noted to be bradycardic on tele who then notified the RN. Upon examining the patient, he was found to be bradycardic with pulse in the 30s and 40s with hypotension with BP systolic 50s. Upon arrival, the patient was unresponsive to noxious stimuli. Blood glucose was 126. ABG and stat blood work was ordered. EKG was reviewed and was noted to be sinus bradycardia with no acute ST/T-wave changes noted as reviewed by me. There was concern regarding intermittent block with QRS morphology change. General: Non-toxic, in no acute distress, appears stated age, normal weight HEENT: NC/AT, anicteric sclerae, moist conjunctiva, no lid-lag, pupils 2 mm unresponsive Cardiovascular: S1/S2 wnl, no murmurs, rubs, or gallops Lungs: Clear to auscultation, normal respiratory effort, no accessory muscle use Abdominal: Soft, non-tender, non-distended, no guarding, rebound, or rigidity Skin: Warm, dry Extremities: No edema or contractures Psychiatric: Unresponsive to noxious stimuli Neuro: Unable to perform, patient moving all extremities with no obvious focal deficits noted Assessment/plan Hypertension and bradycardia, unclear etiology -ABG did not reveal hypercapnia -Possibly sepsis, stat doses of vancomycin and cefepime were ordered -Follow up cultures -Patient was started on normal saline bolus and responded well with subsequent blood pressure normalization -Continue with normal saline now -If patient does not improve, consider ICU transfer for possible IV pressor support -Cardiology consult -Continue with cardiac monitoring -Obtain repeat CT Brain for possible CVA conversion
[2021-01-21] MEDS: ZINC SULFATE 220 MG CAP PO SCH (09:17)
[2021-01-21] MEDS: MEMANTINE 10 MG TAB PO SCH ×2 (09:17→21:39)
[2021-01-21] MEDS: CLOPIDOGREL 75 MG TAB PO SCH (09:17)
[2021-01-21] MEDS: amLODIPine 5 MG TAB PO SCH (09:17)
--- NOTE | 2021-01-21 11:18 | P.CNPUL ---
History of Present Illness Consult date: 01/21/21 Requesting physician: Rob Iglesias Reason for consult: other Chief complaint: Bradycardia, hypotension History of present illness: This is a 85-year-old white male patient who was admitted to the hospital on 01/19/2021 when he was brought into the emergency department for evaluation of altered mental status and concerns of the development of sepsis. Patient has history of dementia at baseline and has chronic mental confusion. Patient was increasingly weak and more confused at home. CT of the head was completed showing hypodensity of the right parietal lobe representing possibility of sub acute infarction. There was no evidence of acute hemorrhage, EKG was showing sinus bradycardia, carotid Doppler showed atherosclerotic changes at the bifurcation, without hemodynamically significant stenosis. Blood test showed normal CBC, normal PT, PTT and CMP, urinalysis suggested possibility of urinary tract infection with the pending urine culture patient was started on Rocephin. Patient had a core with infection in September 2020 and was taking Xarelto for a period of one and half months after discharge. His echocardiogram showed preserved LV function with an EF of 60-65%, mild aortic valve sclerosis. On 01/21/2021 rapid response team was called to the bedside for concern of bradycar geraldo with a pulse rate in the 30s and 40s with hypotension and BP systolic in the 50s, upon arrival of the rapid response team the patient was found to be unresponsive to noxious stimuli, blood glucose was 126, ABG and stat blood work was ordered EKG was reviewed and patient was in sinus bradycardia with no acute ST or T-wave changes, there was a concern regarding intermittent block with QRS morphology change, his blood gas was was unremarkable, with pO2 of 102, pCO2 34, and pH of 7.38 and this was done on 2 L of oxygen, his blood work showed a white blood cell count of 12.6, hemoglobin of 14, sodium was 134, rest the electrolytes were within normal limits, BUN is 16, his creatinine was 1.28, LFTs were within normal limits. he was tested for COVID-19 and was found to be negative. IV fluids were increased to 100 ML per hour, Vancomycin was added, to the Rocephin, patient was started on low-dose dopamine at 2.5 mcg/kg/m and patient was transferred to the intensive care unit for closer monitoring, his CODE STATUS was established and is DO NOT RESUSCITATE. This morning patient is seen in follow-up and he is resting comfortably in bed, he is still quiet comatose, he however resists examiner opening his eyes. Her breathing spontaneously, effortlessly, he is on 2 L of oxygen and has pulse ox is 96%, remains on dopamine at 2-1/2 mics per kilo per minute, and 0.9 at 100, he is currently in sinus mechanism with a rate of 94 BPM. Afebrile. He is producing urine, is made about 300 mL of urine since transfer to the intensive care unit and placement of Bryan catheter at 3:00 this morning. Cardiology consultation is pending Review of Systems All systems: negative Constitutional: Reports lethargy, Reports weakness, Denies chills, Denies fever Eyes: denies blurred vision, denies pain Ears, nose, mouth and throat: Denies headache, Denies sore throat Cardiovascular: Denies chest pain, Denies shortness of breath Respiratory: Denies cough Gastrointestinal: Denies abdominal pain, Denies diarrhea, Denies nausea, Denies vomiting Musculoskeletal: Denies myalgias Integumentary: Denies pruritus, Denies rash Neurological: Reports change in mentation, Denies numbness, Denies weakness Psychiatric: Denies anxiety, Denies depression Endocrine: Denies fatigue, Denies weight change Past Medical History Past Medical History: Dementia, GERD/Reflux, Hearing Disorder / Deafness, Hyperlipidemia, Hypertension, Prostate Disorder Additional Past Medical History / Comment(s): severe constipation, hx colon polyps, neuropathy, degenerative disc disease of the lumbar spine, gastroesophageal reflux disease/hiatal hernia, hyperlipidemia, osteoarthritis, memory loss, vitamin D deficiency.COVID 19 10/20. History of Any Multi-Drug Resistant Organisms: None Reported Past Surgical History: Adenoidectomy, Hernia Repair, Tonsillectomy Additional Past Surgical History / Comment(s): undescended testicle surg years ago, bilateral cataract surgery, tonsillectomy and adenoidectomy, Lion fundoplication for hiatal hernia, epidural injection for degenerative disc disease of the lumbar spine, colonoscopy a year ago, cystoscopy . Past Anesthesia/Blood Transfusion Reactions: No Reported Reaction Past Psychological History: No Psychological Hx Reported Smoking Status: Former smoker Past Alcohol Use History: Occasional Past Drug Use History: None Reported - Past Family History Mother History Unknown: Yes Family Medical History: No Reported History Father Family Medical History: Coronary Artery Disease (CAD) Daughter(s) Family Medical History: No Reported History (Patient has 2 daughters no major medical problems.) Son(s) Family Medical History: No Reported History (Patient has 2 sons no major medical problems.) Medications and Allergies Home Medications Medication Instructions Recorded Confirmed Type Atorvastatin [Lipitor] 40 mg PO HS@2200 05/01/15 01/19/21 History Cholecalciferol [Vitamin D3 (25 25 unit PO DAILY@0800 02/24/16 01/19/21 History Mcg = 1000 Iu)] EPINEPHrine [Epipen 2-Julien] 0.3 mg IM ONCE PRN 02/24/16 01/19/21 History Aspirin [Adult Low Dose Aspirin EC] 81 mg PO HS@1800 05/27/20 01/19/21 History Calcium Polycarbophil [Fiber-Lax] 625 mg PO DAILY@79905/27/20 01/19/21 History Memantine [Namenda] 10 mg PO BID@799,199905/27/20 01/19/21 History Sertraline HCl [Zoloft] 100 mg PO DAILY@79905/27/20 01/19/21 History Ascorbic Acid [Vitamin C] 500 mg PO BID@799,199910/15/20 01/19/21 History Ipratropium [place] [Ipratropium 2 spray EA NOSTRIL 10/15/20 01/19/21 History [place] 0.03%] TID@0800,1399,1999 QUEtiapine FUMARATE [SEROquel] 25 mg PO HS PRN 10/15/20 01/19/21 History Zinc 100 mg PO DAILY@79910/15/20 01/19/21 History amLODIPine [Norvasc] 5 mg PO DAILY@00 10/15/20 01/19/21 History lisinopriL [Zestril] 2.5 mg PO DAILY@79910/15/20 01/19/21 History Gabapentin [Neurontin] 400 mg PO HS@1999 #3 cap 10/19/20 01/19/21 Rx Acetaminophen Tab [Tylenol Tab] 1,000 mg PO Q4-6H PRN 01/19/21 01/19/21 History Amoxic-Pot Clav 875-125Mg 1 tab PO BID@08,199901/19/21 01/19/21 History [Augmentin 875-125] Chlorpheniramine/Dextromethorp 1 tab PO Q6H PRN 01/19/21 01/19/21 History [Coricidin Hbp Cough & Cold Tab] Docusate [Colace] 100 mg PO DAILY PRN 01/19/21 01/19/21 History Famotidine [Pepcid] 20 mg PO DAILY@0800 01/19/21 01/19/21 History Loratadine 10 mg PO DAILY PRN 01/19/21 01/19/21 History guaiFENesin [Mucinex] 1,200 mg PO BID@0800,199901/19/21 01/19/21 History Allergies Allergy/AdvReac Type Severity Reaction Status Date / Time Sulfa (Sulfonamide Allergy Rash/Hives Verified 01/19/21 16:27 Antibiotics) venom-honey bee Allergy "PASSED Verified 01/19/21 16:27 [bee venom (honey bee)] OUT" diphenhydramine HCl AdvReac Hallucinati Verified 01/19/21 16:27 [From Benadryl] ons Physical Exam Vitals: Vital Signs Temp Pulse Pulse Resp BP BP Pulse Ox 01/21/21 07:50 79 18 123/69 97 01/21/21 07:40 86 16 104/46 95 01/21/21 07:30 63 17 90/41 96 01/21/21 07:20 61 14 90/41 96 01/21/21 07:10 64 15 91/43 95 01/21/21 07:00 63 14 89/40 96 01/21/21 06:50 64 16 80/42 95 01/21/21 06:40 62 15 98/48 96 01/21/21 06:30 63 14 131/64 97 01/21/21 06:20 79 104 H 131/64 98 01/21/21 06:10 86 11 L 123/54 94 L 01/21/21 06:00 65 15 123/68 96 01/21/21 05:50 80 19 123/68 95 01/21/21 05:40 85 16 91/48 95 01/21/21 05:30 56 L 16 115/49 96 01/21/21 05:20 55 L 15 115/49 96 01/21/21 05:10 65 12 113/56 96 01/21/21 05:00 80 17 82/63 95 01/21/21 04:51 16 01/21/21 04:35 69 117/68 01/21/21 04:27 59 L 82/43 92 L 01/21/21 04:25 66 74/42 93 L 01/21/21 04:23 58 L 69/41 94 L 01/21/21 03:45 60 154/71 97 01/21/21 03:39 62 123/69 97 01/21/21 03:32 54 L 115/64 98 01/21/21 03:26 66 78/48 88 L 01/21/21 03:10 40 L 45/28 01/21/21 00:00 97.9 F 80 18 97/59 96 01/20/21 20:00 98.4 F 88 18 153/82 95 01/20/21 16:30 98.3 F 76 16 155/76 93 L 01/20/21 15:38 64 18 155/74 99 Intake and Output 01/20/21 01/21/21 01/21/21 22:59 06:59 14:59 Intake Total 240 Output Total 700 1300 300 Balance -460 -1300 -300 Intake: Oral 240 Output: Urine 700 1300 300 Other: Voiding Method Indwelling Catheter Indwelling Catheter Weight 69.4 kg GENERAL EXAM: Sedated, 85-year-old white male, obtunded, but breathing spontaneously and effortlessly currently on 2 L of oxygen and a pulse ox of 96%, comfortable in no apparent distress. HEAD: Normocephalic/atraumatic. EYES: Normal reaction of pupils, equal size. Conjunctiva pink, sclera white. NOSE: Clear with pink turbinates. THROAT: No erythema or exudates. NECK: No masses, no JVD, no thyroid enlargement, no adenopathy. CHEST: No chest wall deformity. Symmetrical expansion. LUNGS: Equal air entry with no crackles, wheeze, rhonchi or dullness. CVS: Regular rate and rhythm, normal S1 and S2, no gallops, no murmurs, no rubs ABDOMEN: Soft, nontender. No hepatosplenomegaly, normal bowel sounds, no guarding or rigidity. EXTREMITIES: No clubbing, no edema, no cyanosis, 2+ pulses and upper and lower extremities. MUSCULOSKELETAL: Muscle strength and tone normal. SPINE: No scoliosis or deformity SKIN: No rashes CENTRAL NERVOUS SYSTEM: Obtunded 85 year old white male. No focal deficits, tone is normal in all 4 extremities. Results - Laboratory Findings CBC and BMP: 01/21/21 03:39 01/21/21 03:38 ABG ABG pH 7.38 (7.35-7.45) 01/21/21 03:47 ABG pCO2 34 mmHg (35-45) L 01/21/21 03:47 ABG pO2 102 mmHg (83-108) 01/21/21 03:47 ABG O2 Saturation 97.9 % (94-97) H 01/21/21 03:47 PT/INR, D-dimer PT 10.5 sec (9.0-12.0) 01/19/21 15:56 INR 1.0 (<1.2) 01/19/21 15:56 Abnormal lab findings: Abnormal Labs 01/19/21 01/21/21 01/21/21 15:56 03:26 03:38 WBC Neutrophils # ABG pCO2 ABG HCO3 ABG O2 Saturation Sodium 134 L Creatinine 1.28 H Glucose 169 H POC Glucose (mg/dL) 133 H HDL Cholesterol Urine Protein 1+ H Urine Ketones Trace H Urine Blood Moderate H Ur Leukocyte Esterase Moderate H Urine RBC 33 H Urine WBC 56 H Urine Bacteria Rare H Urine Mucus Many H Urine Yeast (Budding) Occasional H 01/21/21 01/21/21 01/21/21 03:39 03:39 03:47 WBC 12.6 H Neutrophils # 7.8 H ABG pCO2 34 L ABG HCO3 20 L ABG O2 Saturation 97.9 H Sodium Creatinine Glucose POC Glucose (mg/dL) HDL Cholesterol 35 L Urine Protein Urine Ketones Urine Blood Ur Leukocyte Esterase Urine RBC Urine WBC Urine Bacteria Urine Mucus Urine Yeast (Budding) 01/21/21 04:50 WBC Neutrophils # ABG pCO2 ABG HCO3 ABG O2 Saturation Sodium Creatinine Glucose POC Glucose (mg/dL) 126 H HDL Cholesterol Urine Protein Urine Ketones Urine Blood Ur Leukocyte Esterase Urine RBC Urine WBC Urine Bacteria Urine Mucus Urine Yeast (Budding) - Diagnostic Findings Chest x-ray: report reviewed, image reviewed Additional studies: Chest x-ray reviewed, brain CT reviewed, carotid Doppler study reviewed, echocardiogram reviewed Assessment and Plan Plan: Assessment: #1. Bradycardia and hypotension, requiring initiation of dopamine drip, and fluid bolus, of unknown etiology. Rapid response was called to the bedside and patient was transferred to the intensive care unit on 01/21/2021. Possibly medication effect related, EKG without acute ST or T-wave changes, echocardiogram showing preserved LV function #2. Altered mental status, possibly multifactorial, pre-CT showed possibility of subacute right parietal stroke, follow-up angiogram of the brain is pending #3. Possible urinary tract infection with sepsis #4. Recent history of COVID-19 infection in September 2020 #5. History of underlying dementia #6. Hypertension #7. Hyperlipidemia #8. Prostate disorder #9. Murmur smoker #10. DJD Plan: Continue dopamine drip at 2-1/2 mics per kilo per minute, patient remains in sinus mechanism, the rate has improved, continue with IV fluids at 100 ML per hour, cardiology consultation is pending, his chest x-ray has been reviewed, hemodynamically patient is stable, although he continues to be quite obtunded, we'll discontinue Seroquel, discontinue Neurontin, hold sedatives and narcotics. From pulmonary/critical care perspective patient is stable to go to selective care unit once cleared by cardiology. I performed a history & physical examination of the patient and discussed their management with my nurse practitioner, Clarisa Tai. I reviewed the nurse practitioner's note and agree with the documented findings and plan of care. Lung sounds are positive for diminished breath sounds The findings and the impression was discussed with the patient. I attest to the documentation by the nurse practitioner. Time with Patient: Greater than 30
[2021-01-21 11:47] LABS: Folate, Serum 12.6 ng/mL
--- NOTE | 2021-01-21 12:15 | CT ---
EXAMINATION TYPE: CT angio head neck DATE OF EXAM: 01/21/2021 HISTORY: Subacute stroke altered mental status COMPARISON: CT brain 01/19/2021 carotid Doppler 01/20/2021 CT DLP: 1636.1 mGycm. Automated Exposure Control for Dose Reduction was Utilized. TECHNIQUE: CTA scan of the neck is performed without and with IV Contrast, patient injected with 65 mL of Isovue 370, axial images are obtained, coronal and sagittal reformatted images are reviewed. Th ree-D reconstructed images are created on an independent workstation and reviewed. FINDINGS: Carotid/Vascular Structures: Transverse aorta shows atheromatous change. The innominate, left and rig ht common carotid, left and right subclavian, left and right internal and extra carotid arteries are patent, carotid bulb calcifications are present. Left and right vertebral arteries are patent, right vertebral artery is dominant. There is no evident significant stenosis of the proximal internal carot id arteries bilaterally by NASCET criteria. Within the brain the anterior and posterior circulations are patent. There is no evident dissection, stenosis, aneurysm, or embolus. Atheromatous changes are again noted. Other: Low dense right parietal area is again noted. IMPRESSION: There are atheromatous changes present. Consider MRI for additional evaluation.
--- NOTE | 2021-01-21 14:48 | P.PN ---
Subjective Progress Note Date: 01/21/21 Patient was seen today via Tele-neurology for a follow-up. Patient's son was also present. Apparently since last seen yesterday, patient had an episode of bradycardia and hypotension early this morning at around 3 AM. His heart rate dropped down to 30s and 40s with hypotension with systolic blood pressure in the 50s. Patient was unresponsive to noxious stimuli. Blood glucose was 126. EKG had sinus bradycardia with no acute ST and T-wave changes. There was concern regarding intermittent block with QRS morphology changes. Patient was transferred to ICU. Patient also underwent CTA of head and neck, which revealed atheromatous changes present. No acute process. No evidence of dissection, st enosis aneurysm. Low dense right parietal area is again noted. Patient was in the ICU. He still has no hearing aids, and is almost hearing impaired. Patient's son Tanvir was also present. At present patient is on dopamine 2.5 for bradycardia and low blood pressure. Patient offers no complaints. In fact it is very difficult to get anything out of him because of hearing impairment. Objective - Vital Signs Vital signs: Vital Signs Temp 97.7 F 01/21/21 12:00 Pulse 56 L 01/21/21 13:00 Resp 10 L 01/21/21 13:00 BP 139/86 01/21/21 13:00 Pulse Ox 98 01/21/21 13:00 Intake & Output 01/20/21 01/21/21 01/21/21 18:59 06:59 18:59 Intake Total 240 Output Total 1700 1300 1350 Balance -1460 -1300 -1350 Weight 69.4 kg Intake: Oral 240 Output: Urine 1700 1300 1350 Other: Voiding Method Indwelling Catheter Indwelling Catheter - Exam Patient has slow mentation. He does wake up, and is very hard of hearing. When he was asked where he is, patient repeats "where am I". Patient's speech and language function appears intact. He can name. Patient's face is symmetric. Pupils are round and reacting. Visual phelan could not be tested due to hearing issues. Patient's patient safety manager is equal. Deltoids were equal. Patient moves his legs equally. Again exam was very limited because of patient's difficulty to understand. - Labs CBC & Chem 7: 01/21/21 03:39 01/21/21 03:38 Labs: Abnormal Lab Results - Last 24 Hours (Table) 01/19/21 01/21/21 01/21/21 Range/Units 15:56 03:26 03:38 WBC (3.8-10.6) k/uL Neutrophils # (1.3-7.7) k/uL ABG pCO2 (35-45) mmHg ABG HCO3 (21-25) mmol/L ABG O2 Saturation (94-97) % Sodium 134 L (137-145) mmol/L Creatinine 1.28 H (0.66-1.25) mg/dL Glucose 169 H (74-99) mg/dL POC Glucose (mg/dL) 133 H (75-99) mg/dL HDL Cholesterol (40-60) mg/dL Vitamin B12 198.0 L (200.0-944.0) pg/mL 01/21/21 01/21/21 01/21/21 Range/Units 03:39 03:39 03:47 WBC 12.6 H (3.8-10.6) k/uL Neutrophils # 7.8 H (1.3-7.7) k/uL ABG pCO2 34 L (35-45) mmHg ABG HCO3 20 L (21-25) mmol/L ABG O2 Saturation 97.9 H (94-97) % Sodium (137-145) mmol/L Creatinine (0.66-1.25) mg/dL Glucose (74-99) mg/dL POC Glucose (mg/dL) (75-99) mg/dL HDL Cholesterol 35 L (40-60) mg/dL Vitamin B12 (200.0-944.0) pg/mL 01/21/21 Range/Units 04:50 WBC (3.8-10.6) k/uL Neutrophils # (1.3-7.7) k/uL ABG pCO2 (35-45) mmHg ABG HCO3 (21-25) mmol/L ABG O2 Saturation (94-97) % Sodium (137-145) mmol/L Creatinine (0.66-1.25) mg/dL Glucose (74-99) mg/dL POC Glucose (mg/dL) 126 H (75-99) mg/dL HDL Cholesterol (40-60) mg/dL Vitamin B12 (200.0-944.0) pg/mL Microbiology - Last 24 Hours (Table) 01/19/21 15:56 Urine Culture - Preliminary Urine,Clean Catch Yeast species 01/19/21 15:30 Blood Culture - Preliminary Blood No Growth after 24 hours Assessment and Plan Assessment: * 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 Patient does have mild weakness in the left arm noted on examination. Exam was very limited because of patient's severe hearing impairment, dementia and noncooperation. * Recent Covid-19 infection in September 2020. * Cerumen impaction bilaterally ears, left more than right * Hypertension * Dementia * Very hard of hearing. * Recent episode of bradycardia and hypotension, transferred to ICU. * B12 deficiency Plan: * Neurologically patient is doing well. Patient had episode of hypotension and bradycardia for which she is in ICU. * CTA of head and neck normal, with no evidence of vertebrobasilar insufficiency. * Patient had a stroke while being on aspirin. Patient has been switched from aspirin to Plavix 75 mg daily. * Carotid Doppler showed atherosclerotic change at the bifurcation. No hemodynamically significant stenosis of either ICA. * 2-D echo showed suboptimal views. Borderline concentric LVH. EF is 60-65%. Mild aortic valve sclerosis. * Fasting lipid panel with cholesterol 110, LDL 57, HDL 35 and triglycerides 90, hemoglobin A1c 5.4. Continue Lipitor 40 mg. * B12 is very low 198, will start replacement, folate 12.6, TSH 2.86 normal and RPR nonreactive. * Patient's son also wanted to have his ears disimpacted of the wax. Would defer to IM. May need ENT.
--- NOTE | 2021-01-21 15:28 | P.PN ---
Subjective Progress Note Date: 01/21/21 Patient was transferred to the ICU last night. He was less responsive and hypotensive overnight. He received IV fluid hydration and started on dopamine. At the time of my evaluation, patient was lethargic but easily arousable. His son and nurse at bedside. Patient is unable to communicate as he is very hard of hearing and hearing aids are not available right now. Blood pressure 130s over 70s. Objective - Vital Signs Vital signs: Vital Signs Temp 97.7 F 01/21/21 12:00 Pulse 56 L 01/21/21 14:00 Resp 11 L 01/21/21 14:00 BP 133/64 01/21/21 14:00 Pulse Ox 99 01/21/21 14:00 Intake & Output 01/20/21 01/21/21 01/21/21 18:59 06:59 18:59 Intake Total 240 Output Total 1700 1300 1550 Balance -1460 -1300 -1550 Weight 69.4 kg Intake: Oral 240 Output: Urine 1700 1300 1550 Other: Voiding Method Indwelling Catheter Indwelling Catheter - Exam General: The patient is awake and alert, in no distress Eye: there is normal conjunctiva bilaterally. Neck: The neck is supple, there is no JVD. Cardiovascular: Normal S1-S2, no S3-S4, no murmurs. Respiratory: Lungs clear to auscultation bilaterally Gastrointestinal: Abdomen is soft, nontender Musculoskeletal: There is no pedal edema. Neurological:. Speech is normal. Skin: Skin is warm and dry - Labs CBC & Chem 7: 01/21/21 03:39 01/21/21 03:38 Labs: Abnormal Lab Results - Last 24 Hours (Table) 01/19/21 01/21/21 01/21/21 Range/Units 15:56 03:26 03:38 WBC (3.8-10.6) k/uL Neutrophils # (1.3-7.7) k/uL ABG pCO2 (35-45) mmHg ABG HCO3 (21-25) mmol/L ABG O2 Saturation (94-97) % Sodium 134 L (137-145) mmol/L Creatinine 1.28 H (0.66-1.25) mg/dL Glucose 169 H (74-99) mg/dL POC Glucose (mg/dL) 133 H (75-99) mg/dL HDL Cholesterol (40-60) mg/dL Vitamin B12 198.0 L (200.0-944.0) pg/mL 01/21/21 01/21/21 01/21/21 Range/Units 03:39 03:39 03:47 WBC 12.6 H (3.8-10.6) k/uL Neutrophils # 7.8 H (1.3-7.7) k/uL ABG pCO2 34 L (35-45) mmHg ABG HCO3 20 L (21-25) mmol/L ABG O2 Saturation 97.9 H (94-97) % Sodium (137-145) mmol/L Creatinine (0.66-1.25) mg/dL Glucose (74-99) mg/dL POC Glucose (mg/dL) (75-99) mg/dL HDL Cholesterol 35 L (40-60) mg/dL Vitamin B12 (200.0-944.0) pg/mL 01/21/21 Range/Units 04:50 WBC (3.8-10.6) k/uL Neutrophils # (1.3-7.7) k/uL ABG pCO2 (35-45) mmHg ABG HCO3 (21-25) mmol/L ABG O2 Saturation (94-97) % Sodium (137-145) mmol/L Creatinine (0.66-1.25) mg/dL Glucose (74-99) mg/dL POC Glucose (mg/dL) 126 H (75-99) mg/dL HDL Cholesterol (40-60) mg/dL Vitamin B12 (200.0-944.0) pg/mL Microbiology - Last 24 Hours (Table) 01/19/21 15:56 Urine Culture - Preliminary Urine,Clean Catch Yeast species 01/19/21 15:30 Blood Culture - Preliminary Blood No Growth after 24 hours Assessment and Plan Assessment: This is a 85-year-old male with past medical history noted below significant for underlying dementia with behavioral disturbances who [facility] the [facility] a local [facility] with altered mental status and confusion. Patient was evaluated in the ER and admitted to the hospital for further management of his medical problems noted below. 1. Suspected subacute infarct involving the right parietal lobe noted on co mputed tomography scan of the brain. Seen and evaluated by neurology. Aspirin discontinued and patient started on Plavix. CT angiogram of the head and neck showed no acute findings recommended MRI for further evaluation.. Carotid Doppler showed no hemodynamically significant stenosis. I would order MRI of the brain for further evaluation 2. Transient episode of bradycardia and hypotension, requiring IV fluid boluses and dopamine. Exact etiology unclear. Possibly hypovolemic shock. Doubt septic shock. Blood pressure improved. Wean off dopamine drip as tolerated. 3. Underlying dementia with behavioral disturbances 4. Catheter associated UTI, [facility] with nitrofurantoin pain and Augmentin. I switched him IV ceftriaxone awaiting urine culture. Urinalysis is not very impressive year as hit is traumatic with microscopic hematuria 4. Essential hypertension, hold home medications and monitor 5. Chronic medical problems: Hyperlipidemia, BPH, advanced dementia 6. DVT prophylaxis with subcu heparin
--- NOTE | 2021-01-21 15:50 | P.CRDCN ---
History of Present Illness History of present illness: HISTORY OF PRESENTING ILLNESS Patient is a pleasant 85-year-old male with a history of dementia, chronic indwelling Bryan, hyperlipidemia, hypertension, extremely hard of hearing, BPH. He presented 01/19/2021 with altered mental status. Apparently patient has been at assisted living and was treated for UTI and was feeling more weak and confused over the prior few days and therefore presented to emergency department. CT brain showed hypodensity of the right parietal lobe which may represent age indeterminate CVA. Neurology was consult that with recommendations for possible MRI. Carotid ultrasound showed no significant hemodynamically stenosis. Urinalysis showed moderate leukocyte esterases and white blood cell 56. He apparently had COVID-19 infection in September 2020 however was able to walk somewhat at home with a walker. Per family he has been out of sorts over the past week and not making sense, more confused and decreased appetite. Neurology was suspicious of a subacute stroke of the right parietal region. Cardiology was consult that secondary to bradycardia. Patient had an episode earlier this morning at approximately 3:10 AM where pollution was noted to be b radycardic on telemetry with reported pulse in the 30s however review of telemetry shows only heart rates in the mid 40s. Apparently systolic blood pressure was down to the 50s and patient was unresponsive. Blood glucose was 126. EKG showed sinus rhythm in the 60s with occasional junctional rhythm in the 40s. Patient was placed on dopamine drip and apparently had come back to baseline however had another episode. Unclear what he was doing before these episodes. He has been monitored in the ICU for most of today on dopamine drip without any issues. He denies any chest pain or pressure. He is very hard of hearing however currently states he feels "okay". CTA was performed today which showed no significant dissection or carotid disease. Echocardiogram was performed 01/20 which showed normal ejection fraction 60% with mild aortic valve sclerosis, no significant aortic stenosis and no pericardial effusion. REVIEW OF SYSTEMS At the time of my exam: CONSTITUTIONAL: Denies fever or chills. CARDIOVASCULAR: Denies chest pain, shortness of breath, orthopnea, PND or palpitations. RESPIRATORY: Denies cough. GASTROINTESTINAL: Denies abdominal pain, diarrhea, constipation, nausea or vo miting. MUSCULOSKELETAL: Denies myalgias. NEUROLOGIC: Denies numbness, tingling or weakness. ENDOCRINE: Denies fatigue, weight change, polydipsia or polyurina. GENITOURINARY: Denies burning, hematuria or urgency with micturation. HEMATOLOGIC: Denies history of anemia or bleeding. PHYSICAL EXAMINATION Vital signs reviewed. CONSTITUTIONAL: No apparent distress, elderly, frail, chronically ill-appearing HEENT: Head is normocephalic. Pupils are equal, round. Sclerae anicteric. Mucous membranes of the mouth are moist. No JVD. No carotid bruit. CHEST EXAMINATION: Lungs are clear to auscultation. No chest wall tenderness is noted on palpation or with deep breathing. HEART EXAMINATION: Regular rate and rhythm. S1, S2 heard. No murmurs, gallops or rub. ABDOMEN: Soft, nontender. Positive bowel sounds. EXTREMITIES: 2+ peripheral pulses, no lower extremity edema and no calf tenderness. NEUROLOGIC EXAMINATION: Patient is awake, alert, very hard of hearing. ASSESSMENT 1. Sinus bradycardia with occasional junctional rhythm with heart rates in the 40s 2. Hypotensive episodes with concomitant bradycardia, systolics in the 50s per report. Appears to have been a syncopal episode 3. Essential hypertension 4. Altered mental status over the last week, suspicion of subacute stroke per neurology 5. Minimal carotid artery disease 6. Recent UTI 7. Dementia 8. Hard of hearing PLAN Patient remains on small dose of dopamine. Discussed with ICU nurse. Discontinue dopamine and monitor response. Telemetry reviewed without any significant positives greater than 2 seconds and with heart rates predominantly in the 50s to 60s. Hold any AV scooby blocking agents. 2-D echo shows preserved ejection fraction. Possibility of vasovagal etiology for hypotension and bradycardia as they appeared somewhat transient. If heart rates and blood pressure remain stable off of dopamine, patient may be transferred from ICU. No current evidence to suggest need for permanent pacemaker however we will continue to monitor on telemetry. Past Medical History Past Medical History: Dementia, GERD/Reflux, Hearing Disorder / Deafness, Hyperlipidemia, Hypertension, Prostate Disorder Additional Past Medical History / Comment(s): severe constipation, hx colon polyps, neuropathy, degenerative disc disease of the lumbar spine, gastroes ophageal reflux disease/hiatal hernia, hyperlipidemia, osteoarthritis, memory loss, vitamin D deficiency.COVID 19 10/20. History of Any Multi-Drug Resistant Organisms: None Reported Past Surgical History: Adenoidectomy, Hernia Repair, Tonsillectomy Additional Past Surgical History / Comment(s): undescended testicle surg years ago, bilateral cataract surgery, tonsillectomy and adenoidectomy, Lion fundoplication for hiatal hernia, epidural injection for degenerative disc disease of the lumbar spine, colonoscopy a year ago, cystoscopy . Past Anesthesia/Blood Transfusion Reactions: No Reported Reaction Past Psychological History: No Psychological Hx Reported Smoking Status: Former smoker Past Alcohol Use History: Occasional Past Drug Use History: None Reported - Past Family History Mother History Unknown: Yes Family Medical History: No Reported History Father Family Medical History: Coronary Artery Disease (CAD) Daughter(s) Family Medical History: No Reported History (Patient has 2 daughters no major medical problems.) Son(s) Family Medical History: No Reported History (Patient has 2 sons no major medical problems.) Medications and Allergies Home Medications Medication Instructions Recorded Confirmed Type Atorvastatin [Lipitor] 40 mg PO HS@2200 05/01/15 01/19/21 History Cholecalciferol [Vitamin D3 (25 25 unit PO DAILY@0800 02/24/16 01/19/21 History Mcg = 1000 Iu)] EPINEPHrine [Epipen 2-Julien] 0.3 mg IM ONCE PRN 02/24/16 01/19/21 History Aspirin [Adult Low Dose Aspirin EC] 81 mg PO HS@1800 05/27/20 01/19/21 History Calcium Polycarbophil [Fiber-Lax] 625 mg PO DAILY@00 05/27/20 01/19/21 History Memantine [Namenda] 10 mg PO BID@08,199905/27/20 01/19/21 History Sertraline HCl [Zoloft] 100 mg PO DAILY@0800 05/27/20 01/19/21 History Ascorbic Acid [Vitamin C] 500 mg PO BID@0800,199910/15/20 01/19/21 History Ipratropium Danevang [Ipratropium 2 spray EA NOSTRIL 10/15/20 01/19/21 History Danevang 0.03%] TID@0800,1399,1999 QUEtiapine FUMARATE [SEROquel] 25 mg PO HS PRN 10/15/20 01/19/21 History Zinc 100 mg PO DAILY@0800 10/15/20 01/19/21 History amLODIPine [Norvasc] 5 mg PO DAILY@0800 10/15/20 01/19/21 History lisinopriL [Zestril] 2.5 mg PO DAILY@0800 10/15/20 01/19/21 History Gabapentin [Neurontin] 400 mg PO HS@1999 #3 cap 10/19/20 01/19/21 Rx Acetaminophen Tab [Tylenol Tab] 1,000 mg PO Q4-6H PRN 01/19/21 01/19/21 History Amoxic-Pot Clav 875-125Mg 1 tab PO BID@799,199901/19/21 01/19/21 History [Augmentin 875-125] Chlorpheniramine/Dextromethorp 1 tab PO Q6H PRN 01/19/21 01/19/21 History [Coricidin Hbp Cough & Cold Tab] Docusate [Colace] 100 mg PO DAILY PRN 01/19/21 01/19/21 History Famotidine [Pepcid] 20 mg PO DAILY@0800 01/19/21 01/19/21 History Loratadine 10 mg PO DAILY PRN 01/19/21 01/19/21 History guaiFENesin [Mucinex] 1,200 mg PO BID@799,199901/19/21 01/19/21 History Allergies Allergy/AdvReac Type Severity Reaction Status Date / Time Sulfa (Sulfonamide Allergy Rash/Hives Verified 01/19/21 16:27 Antibiotics) venom-honey bee Allergy "PASSED Verified 01/19/21 16:27 [bee venom (honey bee)] OUT" diphenhydramine HCl AdvReac Hallucinati Verified 01/19/21 16:27 [From Benadryl] ons Physical Exam Vitals: Vital Signs Temp Pulse Pulse Resp BP BP Pulse Ox 01/21/21 14:00 56 L 11 L 133/64 99 01/21/21 13:00 56 L 10 L 139/86 98 01/21/21 12:00 97.7 F 54 L 69 15 98/48 97 01/21/21 11:00 52 L 13 127/57 99 01/21/21 10:00 58 L 12 134/68 97 01/21/21 09:00 59 L 13 95/51 95 01/21/21 08:00 98.1 F 80 69 18 123/69 98 01/21/21 07:50 79 18 123/69 97 01/21/21 07:40 86 16 104/46 95 01/21/21 07:30 63 17 90/41 96 01/21/21 07:20 61 14 90/41 96 01/21/21 07:10 64 15 91/43 95 01/21/21 07:00 63 14 89/40 96 01/21/21 06:50 64 16 80/42 95 01/21/21 06:40 62 15 98/48 96 01/21/21 06:30 63 14 131/64 97 01/21/21 06:20 79 104 H 131/64 98 01/21/21 06:10 86 11 L 123/54 94 L 01/21/21 06:00 65 15 123/68 96 01/21/21 05:50 80 19 123/68 95 01/21/21 05:40 85 16 91/48 95 01/21/21 05:30 56 L 16 115/49 96 01/21/21 05:20 55 L 15 115/49 96 01/21/21 05:10 65 12 113/56 96 01/21/21 05:00 80 17 82/63 95 01/21/21 04:51 16 01/21/21 04:35 69 117/68 01/21/21 04:27 59 L 82/43 92 L 01/21/21 04:25 66 74/42 93 L 01/21/21 04:23 58 L 69/41 94 L 01/21/21 03:45 60 154/71 97 01/21/21 03:39 62 123/69 97 01/21/21 03:32 54 L 115/64 98 01/21/21 03:26 66 78/48 88 L 01/21/21 03:10 40 L 45/28 01/21/21 00:00 97.9 F 80 18 97/59 96 01/20/21 20:00 98.4 F 88 18 153/82 95 01/20/21 16:30 98.3 F 76 16 155/76 93 L Intake and Output 01/21/21 01/21/21 01/21/21 06:59 14:59 22:59 Output Total 1300 1550 Balance -1300 -1550 Output: Urine 1300 1550 Other: Voiding Method Indwelling Catheter Indwelling Catheter Results 01/21/21 03:39 01/21/21 03:38 Cardiac Enzymes 01/21/21 01/21/21 Range/Units 03:38 03:39 AST 30 (17-59) U/L Troponin I <0.012 (0.000-0.034) ng/mL Lipids 01/21/21 Range/Units 03:39 Triglycerides 90 (<150) mg/dL Cholesterol 110 (<200) mg/dL HDL Cholesterol 35 L (40-60) mg/dL CBC 01/21/21 Range/Units 03:39 WBC 12.6 H (3.8-10.6) k/uL RBC 4.44 (4.30-5.90) m/uL Hgb 14.0 (13.0-17.5) gm/dL Hct 40.7 (39.0-53.0) % Plt Count 297 (150-450) k/uL Comprehensive Metabolic Panel 01/21/21 Range/Units 03:38 Sodium 134 L (137-145) mmol/L Potassium 4.3 (3.5-5.1) mmol/L Chloride 103 (98-107) mmol/L Carbon Dioxide 22 (22-30) mmol/L BUN 16 (9-20) mg/dL Creatinine 1.28 H (0.66-1.25) mg/dL Glucose 169 H (74-99) mg/dL Calcium 8.8 (8.4-10.2) mg/dL AST 30 (17-59) U/L ALT 13 (4-49) U/L Alkaline Phosphatase 100 (38-126) U/L Total Protein 6.3 (6.3-8.2) g/dL Albumin 3.5 (3.5-5.0) g/dL Current Medications Generic Name Dose Route Start Last Admin Trade Name Freq PRN Reason Stop Dose Admin Acetaminophen 650 mg 01/19/21 18:31 Acetaminophen Tab 325 Mg Tab PO Q6HR PRN Mild Pain or Fever > 100.5 Atorvastatin Calcium 40 mg 01/20/21 22:00 01/20/21 20:33 Atorvastatin 40 Mg Tab PO 40 mg HS@2200 [facility] Administration Clopidogrel Bisulfate 75 mg 01/20/21 19:00 01/21/21 09:17 Clopidogrel 75 Mg Tab PO Not Given DAILY [facility] Cyanocobalamin 1,000 mcg 01/21/21 14:30 Cyanocobalamin 1,000 Mcg/Ml 1 Ml Vial IM DAILY [facility] Docusate Sodium 100 mg 01/20/21 10:50 Docusate 100 Mg Cap PO DAILY PRN Constipation Heparin Sodium (Porcine) 5,000 unit 01/20/21 08:00 01/21/21 09:16 Heparin Sodium,Porcine/Pf 5,000 Unit/0.5 Ml Syringe SQ 5,000 unit Q8HR [facility] Administration Sodium Chloride 1,000 mls @ 20 mls/hr 01/19/21 18:45 01/21/21 01:03 Saline 0.9% IV 20 mls/hr .Q24H [facility] Administration Ceftriaxone Sodium 1 gm/ 50 mls @ 100 mls/hr 01/20/21 10:45 01/21/21 09:17 Sodium Chloride IVPB 100 mls/hr Q24HR [facility] Administration Sodium Chloride 1,000 mls @ 100 mls/hr 01/21/21 04:00 01/21/21 04:01 Saline 0.9% IV 100 mls/hr .Q10H [facility] Administration Vancomycin HCl 1,000 mg/ 250 mls @ 125 mls/hr 01/22/21 04:00 Sodium Chloride IVPB DAILY@0400 [facility] Dopamine HCl/Dextrose 800 mg/ 250 mls @ 3.253 mls/hr 01/21/21 05:30 01/21/21 05:33 IV Solution IV 2.5 mcg/kg/min .Q24H [facility] 3.253 mls/hr Administration Protocol 2.5 MCG/KG/MIN Memantine 10 mg 01/20/21 08:00 01/21/21 09:17 Memantine 10 Mg Tab PO Not Given BID@0800,2000 [facility] Naloxone HCl 0.2 mg 01/19/21 18:31 Naloxone 0.4 Mg/Ml 1 Ml Vial IV Q2M PRN Opioid Reversal Zinc Sulfate 220 mg 01/21/21 08:00 01/21/21 09:17 Zinc Sulfate 220 Mg Cap PO Not Given DAILY@0800 [facility] Intake and Output 01/21/21 01/21/21 01/21/21 06:59 14:59 22:59 Output Total 1300 1550 Balance -1300 -1550 Output: Urine 1300 1550 Other: Voiding Method Indwelling Catheter Indwelling Catheter 01/21/21 03:39 01/21/21 03:38
[2021-01-21] MEDS: CYANOCOBALAMIN 1,000 MCG/ML 1 ML VIAL IM SCH (15:59)
[2021-01-21] MEDS: ATORVASTATIN 40 MG TAB PO SCH (21:40)
[2021-01-22] MEDS ORDERED: VANCOMYCIN 1,000 MG in SODIUM CHLORIDE 0.9% 250 ML IVPB SCH (04:00)
[2021-01-22] MEDS ORDERED: LORazepam 2 MG/ML INJ IV STA (06:26)
[2021-01-22] MEDS: MEMANTINE 10 MG TAB PO SCH ×2 (09:35→21:04)
[2021-01-22] MEDS: CLOPIDOGREL 75 MG TAB PO SCH (09:35)
[2021-01-22] MEDS: ZINC SULFATE 220 MG CAP PO SCH (09:35)
[2021-01-22] MEDS: HEPARIN SODIUM,PORCINE/PF 5,000 UNIT/0.5 ML SYRINGE SQ SCH ×3 (09:35→23:08)
[2021-01-22] MEDS: CYANOCOBALAMIN 1,000 MCG/ML 1 ML VIAL IM SCH (09:36)
[2021-01-22] MEDS: SODIUM CHLORIDE 0.9% 1,000 ML IV SCH ×2 (09:36→10:51)
[2021-01-22 09:51] LABS: African American GFR (CKD) >90 (>60 ml/min/1.73 sqM); Non-African American GFR(CKD) 81 (>60 ml/min/1.73 sqM)
[2021-01-22] MEDS ORDERED: OLANZapine 2.5 MG TAB PO PRN (11:21)
--- NOTE | 2021-01-22 11:26 | P.PN ---
Subjective Progress Note Date: 01/22/21 Patient is awake and alert today. He was very restless and agitated this morning trying to get out of bed and received one-time dose of IV Ativan 1 mg. He is currently cooperative and keep asking that he wants to go home. Blood pressure improved significantly. No acute events overnight. Objective - Vital Signs Vital signs: Vital Signs Temp 98.3 F 01/22/21 04:00 Pulse 59 L 01/22/21 04:00 Resp 18 01/22/21 04:00 BP 132/68 01/22/21 04:00 Pulse Ox 92 L 01/22/21 04:00 Intake & Output 01/21/21 01/22/21 01/22/21 18:59 06:59 18:59 Intake Total 780 920 Output Total 2250 450 Balance -2250 330 920 Intake: IV 300 Sodium Chloride 0.9% 1, 300 000 ml @ 100 mls/hr IV . Q10H [facility] Rx#:[id number] Oral 480 920 Output: Urine 2250 450 Other: Voiding Method Indwelling Catheter Indwelling Catheter - Exam General: The patient is awake and alert, in no distress Eye: there is normal conjunctiva bilaterally. Neck: The neck is supple, there is no JVD. Cardiovascular: Normal S1-S2, no S3-S4, no murmurs. Respiratory: Lungs clear to auscultation bilaterally Gastrointestinal: Abdomen is soft, nontender Musculoskeletal: There is no pedal edema. Neurological:. Speech is normal. Skin: Skin is warm and dry - Labs CBC & Chem 7: 01/21/21 03:39 01/22/21 08:31 Labs: Abnormal Lab Results - Last 24 Hours (Table) 01/19/21 Range/Units 15:56 Vitamin B12 198.0 L (200.0-944.0) pg/mL Microbiology - Last 24 Hours (Table) 01/19/21 15:56 Urine Culture - Final Urine,Clean Catch Angelica albicans 01/19/21 15:30 Blood Culture - Preliminary Blood No Growth after 48 hours Assessment and Plan Assessment: This is a 85-year-old male with past medical history noted below significant for underlying dementia with behavioral disturbances who presented to the ER from a local long term facility with altered mental status and confusion. Patient was evaluated in the ER and admitted to the hospital for further manage ment of his medical problems noted below. 1. Suspected subacute infarct involving the right parietal lobe noted on computed tomography scan of the brain. Seen and evaluated by neurology. Aspirin discontinued and patient started on Plavix. CT angiogram of the head and neck showed no acute findings recommended MRI for further evaluation.. Carotid Doppler showed no hemodynamically significant stenosis. I ordered MRI of the brain for further evaluation 2. Transient episode of bradycardia and hypotension, requiring IV fluid boluses and dopamine infusion for a few hours. Exact etiology unclear. Possibly vasovagal and/or hypovolemic shock. Doubt septic shock. Blood pressure improved. Patient was seen and evaluated by cardiology. Echocardiogram showed preserved ejection fraction with no significant valvular abnormalities. 3. Underlying dementia with behavioral disturbances: I started the patient on melatonin 5 mg at bedtime. May use 2.5 mg of Zyprexa as needed for severe agit ation 4. Catheter associated UTI, patient is being treated with antibiotic at the [facility] with nitrofurantoin pain and Augmentin. I switched him IV ceftriaxone awaiting urine culture. Urinalysis is not very impressive year as hit is traumatic with microscopic hematuria. Urine culture with no significant growth. I would discontinue antibiotics tomorrow. Bryan catheter exchanged in the ER 4. Essential hypertension, hold home medications and monitor 5. Chronic medical problems: Hyperlipidemia, BPH, advanced dementia 6. DVT prophylaxis with subcu heparin
[2021-01-22 11:55] LABS: ALT 12 U/L (4-49); AST 29 U/L (17-59); African American GFR (CKD) >90 (>60 ml/min/1.73 sqM); Albumin 3.3 g/dL (3.5-5.0); Alkaline Phosphatase 109 U/L (38-126); Anion Gap 7 mmol/L; Blood Urea Nitrogen 15 mg/dL (9-20); Calcium 8.5 mg/dL (8.4-10.2); Carbon Dioxide 18 mmol/L (22-30); Chloride 114 mmol/L (98-107); Glucose 109 mg/dL (74-99); Non-African American GFR(CKD) 81 (>60 ml/min/1.73 sqM); Potassium 3.7 mmol/L (3.5-5.1); Sodium 139 mmol/L (137-145); Total Bilirubin 0.6 mg/dL (0.2-1.3); Total Protein 6.2 g/dL (6.3-8.2)
--- NOTE | 2021-01-22 17:00 | P.PN ---
Subjective HISTORY OF PRESENTING ILLNESS Patient is a pleasant 85-year-old male with a history of dementia, chronic indwelling Bryan, hyperlipidemia, hypertension, extremely hard of hearing, BPH. He presented 01/19/2021 with altered mental status. Apparently patient has been at assisted living and was treated for UTI and was feeling more weak and confused over the prior few days and therefore presented to emergency department. CT brain showed hypodensity of the right parietal lobe which may represent age indeterminate CVA. Neurology was consult that with recommendations for possible MRI. Carotid ultrasound showed no significant hemodynamically stenosis. Urinalysis showed moderate leukocyte esterases and white blood cell 56. He apparently had COVID-19 infection in September 2020 however was able to walk somewhat at home with a walker. Per family he has been out of sorts over the past week and not making sense, more confused and decreased appetite. Neurology was suspicious of a subacute stroke of the right parietal region. Cardiology was consult that secondary to bradycardia. Patient had an episode earlier this morning at approximately 3:10 AM where pollution was noted to be bradycardic on telemetry with reported pulse in the 30s however review of telemetry shows only heart rates in the mid 40s. Apparently systolic blood pressure was down to the 50s and patient was unresponsive. Blood glucose was 126. EKG showed sinus rhythm in the 60s with occasional junctional rhythm in the 40s. Patient was placed on dopamine drip and apparently had come back to baseline however had another episode. Unclear what he was doing before these episodes. He has been monitored in the ICU for most of today on dopamine drip without any issues. He denies any chest pain or pressure. He is very hard of hearing however currently states he feels "okay". CTA was performed today which showed no significant dissection or carotid disease. Echocardiogram was performed 01/20 which showed normal ejection fraction 60% with mild aortic valve sclerosis, no significant aortic stenosis and no pericardial effusion. 01/22 Patient seen and examined. Patient transferred from the ICU yesterday and his dopamine was stopped. Heart rate 70 in the 60s to 70s. He has remained confused. Son at bedside. He denies any chest pain or pressure. States he wants to get out of bed. No further bradycardic or hypotensive episodes. Telemetry reviewed without significant pauses or bradycardia noted. REVIEW OF SYSTEMS At the time of my exam: CONSTITUTIONAL: Denies fever or chills. CARDIOVASCULAR: Denies chest pain, shortness of breath, orthopnea, PND or palpitations. RESPIRATORY: Denies cough. GASTROINTESTINAL: Denies abdominal pain, diarrhea, constipation, nausea or vomiting. MUSCULOSKELETAL: Denies myalgias. NEUROLOGIC: Denies numbness, tingling or weakness. ENDOCRINE: Denies fatigue, weight change, polydipsia or polyurina. GENITOURINARY: Denies burning, hematuria or urgency with micturation. HEMATOLOGIC: Denies history of anemia or bleeding. PHYSICAL EXAMINATION Vital signs reviewed. CONSTITUTIONAL: No apparent distress, elderly, frail, chronically ill-appearing HEENT: Head is normocephalic. Pupils are equal, round. Sclerae anicteric. Mucous membranes of the mouth are moist. No JVD. No carotid bruit. CHEST EXAMINATION: Lungs are clear to auscultation. No chest wall tenderness is noted on palpation or with deep breathing. HEART EXAMINATION: Regular rate and rhythm. S1, S2 heard. No murmurs, gallops or rub. ABDOMEN: Soft, nontender. Positive bowel sounds. EXTREMITIES: 2+ peripheral pulses, no lower extremity edema and no calf tenderness. NEUROLOGIC EXAMINATION: Patient is awake, alert, very hard of hearing. ASSESSMENT 1. Sinus bradycardia with occasional junctional rhythm with heart rates in the 40s 2. Hypotensive episodes with concomitant bradycardia, systolics in the 50s per report. Appears to have been a syncopal episode. Likely vasovagal episode 3. Essential hypertension 4. Altered mental status over the last week, suspicion of subacute stroke per neurology 5. Minimal carotid artery disease 6. Recent UTI 7. Dementia 8. Hard of hearing PLAN Suspect vasovagal episode while in the hospital. Patient's heart rates and blood pressures have been stable, borderline hypertensive however would allow some permissive hypertension with suspicion of recent stroke and hypertension likely related to anxiety. Echo with preserved ejection fraction. No further recommendations from cardiology standpoint. Please call with questions. Objective - Vital Signs Vital signs: Vital Signs Temp 99.0 F 01/22/21 08:00 Pulse 87 01/22/21 08:00 Resp 20 01/22/21 08:00 BP 177/76 01/22/21 08:00 Pulse Ox 97 01/22/21 08:00 Intake & Output 01/21/21 01/22/21 01/22/21 18:59 06:59 18:59 Intake Total 780 920 Output Total 2250 450 300 Balance -2250 330 620 Intake: IV 300 Sodium Chloride 0.9% 1, 300 000 ml @ 100 mls/hr IV . Q10H [facility] Rx#:[id number] Oral 480 920 Output: Urine 2250 450 300 Other: Voiding Method Indwelling Catheter Indwelling Catheter - Labs CBC & Chem 7: 01/21/21 03:39 01/22/21 08:31 Labs: Abnormal Lab Results - Last 24 Hours (Table) 01/22/21 Range/Units 08:31 Chloride 114 H (98-107) mmol/L Carbon Dioxide 18 L (22-30) mmol/L Glucose 109 H (74-99) mg/dL Total Protein 6.2 L (6.3-8.2) g/dL Albumin 3.3 L (3.5-5.0) g/dL Microbiology - Last 24 Hours (Table) 01/19/21 15:56 Urine Culture - Final Urine,Clean Catch Angelica albicans 01/19/21 15:30 Blood Culture - Preliminary Blood No Growth after 48 hours
[2021-01-22] MEDS: MELATONIN 5 MG TABLET PO SCH (21:04)
[2021-01-22] MEDS: ATORVASTATIN 40 MG TAB PO SCH (21:04)
--- NOTE | 2021-01-22 23:44 | P.PN ---
Subjective Progress Note Date: 01/22/21 Patient was seen today via Tele-neurology for a follow-up. Patient's son Nestor was also present. Patient does have hearing aids available, but still very hard of hearing. Patient is now on 4. the strains because he wanted to get out of bed, was very impulsive. He is still very confused. No slurring. Has mild garbled speech. Exam is otherwise nonfocal. Patient has been moved from the ICU in room 350. CTA of head and neck, which revealed atheromatous changes present. No acute process. No evidence of dissection, stenosis aneurysm. Low dense right parietal area is again noted. Objective - Vital Signs Vital signs: Vital Signs Temp 97.9 F 01/22/21 20:00 Pulse 61 01/22/21 20:00 Resp 20 01/22/21 20:00 BP 145/71 01/22/21 20:00 Pulse Ox 98 01/22/21 20:00 Intake & Output 01/22/21 01/22/21 01/23/21 06:59 18:59 06:59 Intake Total 780 920 240 Output Total 450 800 550 Balance 330 120 -310 Intake: IV 300 Sodium Chloride 0.9% 1, 300 000 ml @ 100 mls/hr IV . Q10H [facility] Rx#:[id number] Oral 480 920 240 Output: Urine 450 800 550 Other: Voiding Method Indwelling Catheter Indwelling Catheter - Exam Patient has slow mentation. He does wake up, and is very hard of hearing. Patient's speech is mildly slurred but no aphasia. Very hard of hearing. Exam limited. Patient corporate counselor, biceps and triceps appears normal. Patient wiggles his feet equally. Tone is equal. 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 Patient does have mild weakness in the left arm noted on examination. Exam was very limited because of patient's severe hearing impairment, dementia and noncooperation. * Recent Covid-19 infection in September 2020. * Cerumen impaction bilaterally ears, left more than right * Hypertension * Dementia * Very hard of hearing. * Recent episode of bradycardia and hypotension, transferred to ICU. * B12 deficiency Plan: * Neurologically patient is doing well. * CTA of head and neck normal, with no evidence of vertebrobasilar i nsufficiency. * Patient had a stroke while being on aspirin. Patient has been switched from aspirin to Plavix 75 mg daily. * Carotid Doppler showed atherosclerotic change at the bifurcation. No hemody namically significant stenosis of either ICA. * 2-D echo showed suboptimal views. Borderline concentric LVH. EF is 60-65%. Mild aortic valve sclerosis. * Fasting lipid panel with cholesterol 110, LDL 57, HDL 35 and triglycerides 90, hemoglobin A1c 5.4. Continue Lipitor 40 mg. * B12 is very low 198, will start replacement, folate 12.6, TSH 2.86 normal and RPR nonreactive. * Patient's son also wanted to have his ears disimpacted of the wax. Would defer to IM. May need ENT. * Consider starting Aricept 5 mg daily for dementia. After one month and increase to 10 mg daily and continue. * Neurologically clear. Please call neurology if any other concerns.
[2021-01-23] MEDS: CLOPIDOGREL 75 MG TAB PO SCH (09:10)
[2021-01-23] MEDS: HEPARIN SODIUM,PORCINE/PF 5,000 UNIT/0.5 ML SYRINGE SQ SCH ×3 (09:10→23:42)
[2021-01-23] MEDS: CYANOCOBALAMIN 1,000 MCG/ML 1 ML VIAL IM SCH (09:10)
[2021-01-23] MEDS: MEMANTINE 10 MG TAB PO SCH ×2 (09:10→20:34)
[2021-01-23] MEDS: ZINC SULFATE 220 MG CAP PO SCH (09:10)
[2021-01-23 09:37] LABS: Basophils % (A) 0 %; Eosinophils # (A) 0.8 k/uL (0-0.7); Eosinophils % (A) 10 %; HCT 35.9 % (39.0-53.0); HGB 12.7 gm/dL (13.0-17.5); Lymphocytes # (A) 1.8 k/uL (1.0-4.8); Lymphocytes % (A) 24 %; MCH 31.8 pg (25.0-35.0); MCHC 35.4 g/dL (31.0-37.0); MCV 89.7 fL (80.0-100.0); Mean Platelet Volume 6.9; Monocytes # (A) 0.4 k/uL (0-1.0); Monocytes % (A) 6 %; Neutrophils # (A) 4.5 k/uL (1.3-7.7); Neutrophils % (A) 59 %; Platelet Count 223 k/uL (150-450); WBC 7.7 k/uL (3.8-10.6)
--- NOTE | 2021-01-23 15:30 | P.PN ---
Subjective Progress Note Date: 01/23/21 Patient is awake and alert. He is very hard of hearing. No acute events overnight. Objective - Vital Signs Vital signs: Vital Signs Temp 97.6 F 01/23/21 11:55 Pulse 56 L 01/23/21 11:55 Resp 20 01/23/21 11:55 BP 152/83 01/23/21 11:55 Pulse Ox 98 01/23/21 11:55 Intake & Output 01/22/21 01/23/21 01/23/21 18:59 06:59 18:59 Intake Total 920 240 50 Output Total 800 1325 Balance 120 -1085 50 Weight 73.5 kg Intake: Intake, IV Titration 50 Amount cefTRIAXone 1 gm In 50 Sodium Chloride 0.9% 50 ml @ 100 mls/hr IVPB Q24HR [facility] Rx#:[id number] Oral 920 240 Output: Urine 800 1325 Other: Voiding Method Indwelling Catheter Indwelling Catheter - Exam General: The patient is awake and alert, in no distress Eye: there is normal conjunctiva bilaterally. Neck: The neck is supple, there is no JVD. Cardiovascular: Normal S1-S2, no S3-S4, no murmurs. Respiratory: Lungs clear to auscultation bilaterally Gastrointestinal: Abdomen is soft, nontender Musculoskeletal: There is no pedal edema. Neurological:. Speech is normal. Skin: Skin is warm and dry - Labs CBC & Chem 7: 01/23/21 09:03 01/22/21 08:31 Labs: Abnormal Lab Results - Last 24 Hours (Table) 01/23/21 Range/Units 09:03 RBC 4.00 L (4.30-5.90) m/uL Hgb 12.7 L (13.0-17.5) gm/dL Hct 35.9 L (39.0-53.0) % Eosinophils # 0.8 H (0-0.7) k/uL Microbiology - Last 24 Hours (Table) 01/19/21 15:30 Blood Culture - Preliminary Blood No Growth after 72 hours Assessment and Plan Assessment: This is a 85-year-old male with past medical history noted below significant for underlying dementia with behavioral disturbances who presented to the ER from a local senior living facility with altered mental status and confusion. Cathy balderrama was evaluated in the ER and admitted to the hospital for further management of his medical problems noted below. 1. Suspected subacute infarct involving the right parietal lobe noted on computed tomography scan of the brain. Seen and evaluated by neurology. Aspirin discontinued and patient started on Plavix. CT angiogram of the head and neck showed no acute findings recommended MRI for further evaluation.. Carotid Doppler showed no hemodynamically significant stenosis. I ordered MRI of the brain that neurology discussed with family members and this will not be done 2. Transient episode of bradycardia and hypotension, requiring IV fluid boluses and dopamine infusion for a few hours. Exact etiology unclear. Possibly vasovagal and/or hypovolemic shock. Doubt septic shock. Blood pressure improved. Patient was seen and evaluated by cardiology. Echocardiogram showed preserved ejection fraction with no significant valvular abnormalities. 3. Underlying dementia with behavioral disturbances: I started the patient on melatonin 5 mg at bedtime. Aricept 5 mg daily as suggested by neurology. 4. Catheter associated UTI, patient is being treated with antibiotic at the [facility] home with nitrofurantoin pain and Augmentin. I switched him IV ceftriaxone awaiting urine culture. Urinalysis is not very impressive year as hit is traumatic with microscopic hematuria. Urine culture with no significant growth. I would discontinue antibiotics and continue to monitor. Bryan catheter exchanged in the ER 4. Essential hypertension, hold home medications and monitor 5. Chronic medical problems: Hyperlipidemia, BPH, advanced dementia 6. DVT prophylaxis with subcu heparin Awaiting placement to ECF
[2021-01-23] MEDS: MELATONIN 5 MG TABLET PO SCH (20:34)
[2021-01-23] MEDS: ATORVASTATIN 40 MG TAB PO SCH (20:34)
[2021-01-23] MEDS ORDERED: DONEPEZIL 5 MG TAB PO SCH (21:00)
--- NOTE | 2021-01-24 01:14 | P.PN ---
Subjective Progress Note Date: 01/23/21 Patient was seen for a follow-up. Patient's daughter was also present. Per patient's daughter, patient is much more calm and quiet. He is much improved. No more on point restraints. Continues to have severe hearing loss. Hearing aids have been misplaced. No slurring. CTA of head and neck, which revealed atheromatous changes present. No acute process. No evidence of dissection, stenosis aneurysm. Low dense right parietal area is again noted. Objective - Vital Signs Vital signs: Vital Signs Temp 98.1 F 01/23/21 16:38 Pulse 73 01/23/21 16:38 Resp 20 01/23/21 16:38 BP 159/79 01/23/21 16:38 Pulse Ox 97 01/23/21 16:38 Intake & Output 01/23/21 01/23/21 01/24/21 06:59 18:59 06:59 Intake Total 240 410 Output Total 1325 Balance -1085 410 Weight 73.5 kg Intake: Intake, IV Titration 50 Amount cefTRIAXone 1 gm In 50 Sodium Chloride 0.9% 50 ml @ 100 mls/hr IVPB Q24HR [facility] Rx#:[id number] Oral 240 360 Output: Urine 1325 Other: Voiding Method Indwelling Catheter Indwelling Catheter - Exam Patient is much more alert and awake, with normal affect. Patient's speech is clear. No aphasia. Mentation appears better. Patient is very hard of hearing. Exam limited. Patient gallery or museum guide, biceps and triceps appears normal. Patient wiggles his feet equally. Tone is equal. Detailed testing could not be performed due to hearing impairment. 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 * Recent Covid-19 infection in September 2020. * Cerumen impaction bilaterally ears, left more than right * Hypertension * Dementia * Very hard of hearing. * Recent episode of bradycardia and hypotension, transferred to ICU. * B12 deficiency Plan: * Neurologically patient is doing much better. Agitation has resolved. * CTA of head and neck normal, with no evidence of vertebrobasilar insuffic iency. * Patient had a stroke while being on aspirin. Patient has been switched from aspirin to Plavix 75 mg daily. * Carotid Doppler showed atherosclerotic change at the bifurcation. No hemodynamically significant stenosis of either ICA. * 2-D echo showed suboptimal views. Borderline concentric LVH. EF is 60-65%. Mild aortic valve sclerosis. * Fasting lipid panel with cholesterol 110, LDL 57, HDL 35 and triglycerides 90, hemoglobin A1c 5.4. Continue Lipitor 40 mg. * B12 is very low 198, will start replacement, folate 12.6, TSH 2.86 normal and RPR nonreactive. * Patient's son also wanted to have his ears disimpacted of the wax. Would defer to IM. May need ENT. * Consider starting Aricept 5 mg daily for dementia. After one month and increase to 10 mg daily and continue. * Neurologically clear. Please call neurology if any other concerns. Neurology will sign off.
[2021-01-24] MEDS: ZINC SULFATE 220 MG CAP PO SCH (09:03)
[2021-01-24] MEDS: CLOPIDOGREL 75 MG TAB PO SCH (09:03)
[2021-01-24] MEDS: MEMANTINE 10 MG TAB PO SCH (09:04)
[2021-01-24] MEDS: HEPARIN SODIUM,PORCINE/PF 5,000 UNIT/0.5 ML SYRINGE SQ SCH (09:04)
[2021-01-24] MEDS: CYANOCOBALAMIN 1,000 MCG/ML 1 ML VIAL IM SCH (09:04)
--- NOTE | 2021-01-24 09:59 | P.DS ---
Providers Date of admission: 01/19/21 18:22 Expected date of discharge: 01/24/21 Attending physician: Jessica Asencio Consults: 01/19/21 18:32 Consult Physician Routine Consulting Provider: Tee Jimenez Consult Reason/Comments: subacute stroke on CT Do you want consulting provider notified?: Yes 01/21/21 05:16 Consult Physician Routine Consulting Provider: Katherine Naqvi Consult Reason/Comments: ICU admission Do you want consulting provider notified?: Yes, Notify in am Primary care physician: David [facility] Course: This is a 85-year-old male with past medical history noted below significant for underlying dementia with behavioral disturbances who presented to the ER from a local snf facility with altered mental status and confusion. Patient was evaluated in the ER and admitted to the hospital for further management of his medical problems noted below. 1. Suspected subacute infarct involving the right parietal lobe noted on computed tomography scan of the brain. Seen and evaluated by neurology. Aspirin discontinued and patient started on Plavix. CT angiogram of the head and neck showed no acute findings recommended MRI for further evaluation. Carotid Doppler showed no hemodynamically significant stenosis. I ordered MRI of the brain that neurology discussed with family members and this will not be done 2. Transient episode of bradycardia and hypotension, requiring IV fluid boluses and dopamine infusion for a few hours. Exact etiology unclear. Possibly vasovagal and/or hypovolemic shock. Doubt septic shock. Blood pressure improved. Patient was seen and evaluated by cardiology. Echocardiogram showed preserved ejection fraction with no significant valvular abnormalities. 3. Underlying dementia with behavioral disturbances: I started the patient on melatonin 5 mg at bedtime. Aricept 5 mg daily as suggested by neurology. They increased the dose to 10 mg daily after 1 month 4. Catheter associated UTI, patient is being treated with antibiotic at the snf with nitrofurantoin pain and Augmentin. I switched him IV ceftriaxone awaiting urine culture. Urinalysis is not very impressive year as hit is traumatic with microscopic hematuria. Urine culture with no significant growth. I would discontinue antibiotics and continue to monitor. Bryan catheter exchanged in the ER 4. Essential hypertension, hold home medications and monitor 5. Chronic medical problems: Hyperlipidemia, BPH, advanced dementia Patient will be discharged to snf facility in a stable condition. For further details about this hospitalization please refer to the electronic chart. Patient Condition at Discharge: Stable Plan - Discharge Summary Discharge Rx Participant: No New Discharge Prescriptions: New Donepezil [Aricept] 5 mg PO HS tab Melatonin 5 mg PO HS tablet Clopidogrel [Plavix] 75 mg PO DAILY tab Cyanocobalamin (Vitamin B-12) [Vitamin B-12] 2,000 mcg PO DAILY #30 tablet.er Continue Atorvastatin [Lipitor] 40 mg PO HS@2200 Cholecalciferol [Vitamin D3 (25 Mcg = 1000 Iu)] 25 unit PO DAILY@0800 EPINEPHrine [Epipen 2-Julien] 0.3 mg IM ONCE PRN PRN Reason: Anaphylaxis Sertraline HCl [Zoloft] 100 mg PO DAILY@0800 Memantine [Namenda] 10 mg PO BID@0800,1999 amLODIPine [Norvasc] 5 mg PO DAILY@0800 Ipratropium [place] [Ipratropium [place] 0.03%] 2 spray EA NOSTRIL TID@0800,1400,1999 lisinopriL [Zestril] 2.5 mg PO DAILY@0800 Ascorbic Acid [Vitamin C] 500 mg PO BID@0800,1999 Zinc 100 mg PO DAILY@0800 Famotidine [Pepcid] 20 mg PO DAILY@0800 Docusate [Colace] 100 mg PO DAILY PRN PRN Reason: Constipation Discontinued Calcium Polycarbophil [Fiber-Lax] 625 mg PO DAILY@0800 Aspirin [Adult Low Dose Aspirin EC] 81 mg PO HS@1800 QUEtiapine FUMARATE [SEROquel] 25 mg PO HS PRN PRN Reason: Insomnia Gabapentin [Neurontin] 400 mg PO HS@1999 #3 cap Amoxic-Pot Clav 875-125Mg [Augmentin 875-125] 1 tab PO BID@0800,1999 Chlorpheniramine/Dextromethorp [Coricidin Hbp Cough & Cold Tab] 1 tab PO Q6H PRN PRN Reason: Allergy Symptoms Acetaminophen Tab [Tylenol Tab] 1,000 mg PO Q4-6H PRN PRN Reason: Pain guaiFENesin [Mucinex] 1,200 mg PO BID@0800,1999 Loratadine 10 mg PO DAILY PRN PRN Reason: Allergy Symptoms Discharge Medication List Atorvastatin [Lipitor] 40 mg PO HS@2200 05/01/15 [History] Cholecalciferol [Vitamin D3 (25 Mcg = 1000 Iu)] 25 unit PO DAILY@0800 05/27/16 [History] EPINEPHrine [Epipen 2-Julien] 0.3 mg IM ONCE PRN 02/24/16 [History] Memantine [Namenda] 10 mg PO BID@0800,199905/27/20 [History] Sertraline HCl [Zoloft] 100 mg PO DAILY@0800 05/27/20 [History] Ascorbic Acid [Vitamin C] 500 mg PO BID@0800,199910/15/20 [History] Ipratropium [place] [Ipratropium [place] 0.03%] 2 spray EA NOSTRIL TID@0800,1400,199910/15/20 [History] Zinc 100 mg PO DAILY@0810/15/20 [History] amLODIPine [Norvasc] 5 mg PO DAILY@0810/15/20 [History] lisinopriL [Zestril] 2.5 mg PO DAILY@0810/15/20 [History] Docusate [Colace] 100 mg PO DAILY PRN 01/19/21 [History] Famotidine [Pepcid] 20 mg PO DAILY@0800 01/19/21 [History] Clopidogrel [Plavix] 75 mg PO DAILY tab 01/24/21 [Rx] Cyanocobalamin (Vitamin B-12) [Vitamin B-12] 2,000 mcg PO DAILY #30 tablet.er 01/24/21 [Rx] Donepezil [Aricept] 5 mg PO HS tab 01/24/21 [Rx] Melatonin 5 mg PO HS tablet 01/24/21 [Rx] Follow up Appointment(s)/Referral(s): David Jimenez MD [Primary Care Provider] - 1-2 days Discharge Disposition: TRANSFER TO SNF/ECF
[2021-01-24 10:33] VITALS: RESP 20
[2021-01-24 11:57] VITALS: BP 159/77; PULSE 56; TEMP 98.3
== END 2021-01-24 14:38 | DRG 64 ==
LOC: EC 15:06 → 3SCARD 18:22 → 2SICU 01-21 04:51 → 3SCARD 01-21 23:25
PROVIDERS: ADMIT Internal Medicine; ATTEND Internal Medicine
PROC: 3E033XZ Introduction of Vasopressor into Peripheral Vein, Percutaneous Approach (ICD-10-PCS; principal; 2021-01-21)
DX: I63.9 Cerebral infarction, unspecified (principal); R57.1 Hypovolemic shock; T83.518A Infection and inflammatory reaction due to other urinary catheter, initial encounter; N39.0 Urinary tract infection, site not specified; F03.91 Unspecified dementia, unspecified severity, with behavioral disturbance; R53.1 Weakness; Z79.899 Other long term (current) drug therapy; Z79.82 Long term (current) use of aspirin; E78.5 Hyperlipidemia, unspecified; Z20.822 Contact with and (suspected) exposure to COVID-19; I10 Essential (primary) hypertension; K21.9 Gastro-esophageal reflux disease without esophagitis; N42.9 Disorder of prostate, unspecified; Z66 Do not resuscitate; Z87.19 Personal history of other diseases of the digestive system; E55.9 Vitamin D deficiency, unspecified; G62.9 Polyneuropathy, unspecified; K44.9 Diaphragmatic hernia without obstruction or gangrene; K59.00 Constipation, unspecified; M51.36 Other intervertebral disc degeneration, lumbar region; R41.3 Other amnesia; Q53.10 Unspecified undescended testicle, unilateral; Z87.891 Personal history of nicotine dependence; Z86.16 Personal history of COVID-19; Z88.2 Allergy status to sulfonamides; R00.1 Bradycardia, unspecified; Z82.49 Family history of ischemic heart disease and other diseases of the circulatory system; I95.9 Hypotension, unspecified; Z78.1 Physical restraint status; N40.0 Benign prostatic hyperplasia without lower urinary tract symptoms; H61.23 Impacted cerumen, bilateral; E53.8 Deficiency of other specified B group vitamins; I35.8 Other nonrheumatic aortic valve disorders; M43.16 Spondylolisthesis, lumbar region; M48.061 Spinal stenosis, lumbar region without neurogenic claudication; Y84.6 Urinary catheterization as the cause of abnormal reaction of the patient, or of later complication, without mention of misadventure at the time of the procedure
CPT/HCPCS: 36415; 36600; 70450; 70496; 70498; 71045; 80053; 80061; 81001; 82140; 82565; 82607; 82746; 82805; 83036; 83605; 83735; 84443; 84484; 85025; 85610; 85730; 86780; 87040; 87086; 87635; 93005; 93306; 93880; 99285